=== PATIENT | female | born 1945 | race Caucasian/White ===

== ENCOUNTER 2019-08-04 11:02 | Emergency (ER) | payer OTHER, MEDICARE, SELFPAY | END 2019-08-04 13:52 | disposition home or self-care (01) | PROVIDERS: Emergency Provider Emergency Medicine; PCP Family Medicine Adolescent Medicine; Visit Provider Emergency Medicine | DX: S20.211A Contusion of right front wall of thorax, initial encounter (principal); J84.9 Interstitial pulmonary disease, unspecified; I25.2 Old myocardial infarction; I25.10 Atherosclerotic heart disease of native coronary artery without angina pectoris; Z95.5 Presence of coronary angioplasty implant and graft; E78.00 Pure hypercholesterolemia, unspecified; I10 Essential (primary) hypertension; G47.30 Sleep apnea, unspecified; M19.90 Unspecified osteoarthritis, unspecified site; Z87.891 Personal history of nicotine dependence; V47.5XXA Car driver injured in collision with fixed or stationary object in traffic accident, initial encounter | CPT/HCPCS: 99284; 85025; 83690; 36415; 87086; 80053; 81001; 87088; 71046; 71110; 71260; 74177; Q9967 ==

== ENCOUNTER 2020-11-22 14:11 | Inpatient (IN) | payer MEDICARE, SELFPAY ==
[2020-11-22] VITALS (12 sets, daily range): BP systolic 112–159; BP diastolic 52–93; PULSE 84–116; RESP 22–91; TEMP 36.7–37.7; O2SAT 90–100; BMI 24.3
--- NOTE | ~2020-11-22 | XR_ITS ---
XR chest 1V portable DATE: 11/29/2020 05:40 INDICATION: Pneumonia TECHNIQUE: Portable AP chest on the board 2020 at 0520 hours COMPARISON: 11/22/2020 portable AP chest at 1446 hours 09/13/2018 two-view chest FINDINGS: There are diffuse patchy severe bilateral pulmonary infiltrates with little interval change since 11/22/2020. Findings likely due to superimposed pneumonia or less likely pulmonary edema on chr onic interstitial lung disease. Heart size appears within normal limits. Is aortic arch calcification. No pleural effusion or pneumothorax. Diffuse osteopenia. IMPRESSION: Persistent severe bilateral pulmonary infiltrates, with little interval change since 11/22. Reviewed, dictated and finalized at location A. FORMER IMPRESSION: Persistent severe bilateral pulmonary infiltrates, with little inte rval change since 11/22/2020.
--- NOTE | ~2020-11-22 | XR_ITS ---
EXAMINATION: XR chest 1V portable INDICATION: COVID 19 pneumonia, acute respiratory failure TECHNIQUE: Portable AP chest at 0916 hours COMPARISON: 12/05/2020 FINDINGS: The endotracheal tube ends approximately 5.2 cm above the alicia. The nasogastric tube is f ollowed as far as the stomach. Its tip is beyond the inferior margin of the radiograph. A right inter nal jugular central venous catheter ends with its tip at the superior cavoatrial junction. Diffuse in terstitial and airspace opacities persist without significant change. No pleural effusion or pneumoth orax is identified. Extensive subcutaneous emphysema has developed which tracks into the chest wall a nd neck. Pneumomediastinum is also noted. The cardiomediastinal silhouette is stable. IMPRESSION: 1. Stable diffuse lung disease, consistent with pneumonia superimposed on chronic interstitial lung d isease. 2. Development of pneumomediastinum and extensive subcutaneous emphysema of the chest wall and neck, suspect barotrauma. Reviewed, dictated and finalized at location A. ENTER ASSISTANT INSTALLER IMPRESSION: 1. Stable diffuse lung disease, consistent with pneumonia superimposed on chron ic interstitial lung disease. 2. Development of pneumomediastinum and extensive subcutaneous emphysema of the chest wall and neck, suspect barotrauma.
--- NOTE | ~2020-11-22 | XR_ITS ---
XR abdomen NG/feed tube insert DATE: 12/02/2020 10:14 INDICATION: Orogastric tube insertion TECHNIQUE: Portable AP view on December 02, 2020 at 1006 hours COMPARISON: None FINDINGS: NG tube in gastric fundus, the proximal side-port 2.5 cm beyond the diaphragmatic hiatus. IMPRESSION: NG tube in proximal stomach Reviewed, dictated and finalized at Location A. Reviewed, dictated and finalized at location A. LEAF PRINTER IMPRESSION: NG tube in proximal stomach
--- NOTE | ~2020-11-22 | XR_ITS ---
XR chest ET placement DATE: 12/02/2020 10:14 INDICATION: ET tube placement TECHNIQUE: Portable upright AP chest on December 02, 2020 at 1005 hours COMPARISON: December 02, 2020 portable AP chest at 0755 hours FINDINGS: Interval ET tube placement, tip 6 cm above alicia; ideal range is 2-5 cm. A nasogastric tube is present in the stomach, distal tip beyond the margin of the radiograph. No central lines. Diffuse bilateral pulmonary infiltrates are again noted superimposed upon chronic interstitial fibros is. No pleural effusion. No pneumothorax. IMPRESSION: ET tube 6 cm above alicia; ideal range is 2-5 cm NG tube in stomach Reviewed, dictated and finalized at Location A. Reviewed, dictated and finalized at location A. DING INSPECTOR
--- NOTE | ~2020-11-22 | XR_ITS ---
EXAMINATION: XR chest 1V portable DATE: 12/07/2020 05:51 INDICATION: COVID-19 pneumonia. TECHNIQUE: A single frontal view of the chest was obtained. COMPARISON: Chest single view 12/06/2020 FINDINGS: There are airspace and interstitial opacities throughout the lungs bilaterally. No pleural effusion or pneumothorax. The heart size is normal. Pneumomediastinum is noted. The endotracheal tube tip is 6.5 cm above the alicia. The nasogastric tube tip is beyond the inferior margin of the radiog raph, but at least to the stomach. A right internal jugular central venous catheter is seen with tip in the superior vena cava. There is extensive subcutaneous emphysema in the bilateral chest wall and neck. IMPRESSION: 1. Stable diffuse lung disease, consistent with pneumonia superimposed on chronic interstitial lung d isease. 2. Persistent pneumomediastinum and extensive subcutaneous emphysema in the bilateral chest wall and neck. Reviewed, dictated and finalized at location A. UTER EQUIPMENT REPAIRER IMPRESSION: 1. Stable diffuse lung disease, consistent with pneumonia superimposed on chron ic interstitial lung disease. 2. Persistent pneumomediastinum and extensive subcutaneous emphysema in the jorge ateral chest wall and neck.
--- NOTE | ~2020-11-22 | XR_ITS ---
EXAMINATION: XR chest 1V portable DATE: 11/22/2020 14:46 INDICATION: Cough and shortness of breath. TECHNIQUE: A single frontal view of the chest was obtained. COMPARISON: Chest 2 views 08/04/2019, chest CT 08/04/2019 FINDINGS: The lung volumes are normal. There are airspace and course interstitial opacities throughou t the lungs bilaterally with a peripheral and lower lung predominance. No pleural effusion or pneumot horax. The heart size is normal. IMPRESSION: 1. Worsened diffuse lung disease, consistent with chronic interstitial lung disease with superimposed pneumonia versus pulmonary edema. Reviewed, dictated and finalized at location A. ITY SERVICE WORKER IMPRESSION: 1. Worsened diffuse lung disease, consistent with chronic interstitial lung dis ease with superimposed pneumonia versus pulmonary edema.
--- NOTE | ~2020-11-22 | XR_ITS ---
EXAMINATION: XR chest 1V portable DATE: 12/04/2020 05:56 INDICATION: COVID-19 pneumonia. Acute respiratory failure. TECHNIQUE: A single frontal view of the chest was obtained. COMPARISON: Chest single view 12/03/2010 FINDINGS: There are airspace opacities and interstitial opacities throughout the lungs bilaterally. N o pleural effusion or pneumothorax. The heart size is normal. The endotracheal tube tip is 4.3 cm abo ve the alicia. The nasogastric tube tip is in the stomach. A right internal jugular central venous ca theter is seen with tip at the superior cavoatrial junction. IMPRESSION: 1. Stable diffuse lung disease, consistent with pneumonia superimposed on chronic interstitial lung d isease. Reviewed, dictated and finalized at location A. ARD/STEWARDESS DECK IMPRESSION: 1. Stable diffuse lung disease, consistent with pneumonia superimposed on chron ic interstitial lung disease.
--- NOTE | ~2020-11-22 | XR_ITS ---
XR chest 1V portable DATE: 12/03/2020 05:35 INDICATION: Covid 19 pneumonia. Acute respiratory failure. TECHNIQUE: Portable AP chest August 02, 2021 at 0512 hours COMPARISON: December 02, 2020 portable AP chest at 1108 hours FINDINGS: ET and NG tubes in satisfactory position. Right internal jugular central venous catheter tip near superior cavoatrial junction. Heart size is within normal range. Is aortic arch calcification. There are severe diffuse bilateral pulmonary infiltrates, without significant change since November. No pleural effusion or pneumothorax is detected. IMPRESSION: No significant change since December 02, 2020 Reviewed, dictated and finalized at location A. AL WORK ASSISTANT
--- NOTE | ~2020-11-22 | XR_ITS ---
EXAMINATION: XR chest port-a-cath/central DATE: 12/02/2020 11:09 INDICATION: Central line placement. TECHNIQUE: A single frontal view of the chest was obtained. COMPARISON: Chest single view at 9:57 AM, chest CT 08/04/2019 FINDINGS: There are heterogeneous airspace and interstitial opacities throughout the lungs bilaterall y. No pleural effusion or pneumothorax. The heart size is normal. The endotracheal tube tip is 6.2 cm above the alicia. The nasogastric tube tip is in the stomach. A right internal jugular central venou s catheter is seen with tip at the superior vena cava. IMPRESSION: 1. Central line tip at the superior cavoatrial junction. No pneumothorax. 2. Diffuse lung disease, consistent with pneumonia superimposed on chronic interstitial lung disease. Reviewed, dictated and finalized at location A. ME TAX ADJUSTER IMPRESSION: 1. Central line tip at the superior cavoatrial junction. No pneumothorax. 2. Diffuse lung disease, consistent with pneumonia superimposed on chronic inte rstitial lung disease.
--- NOTE | ~2020-11-22 | XR_ITS ---
EXAMINATION: XR chest 1V portable DATE: 12/05/2020 05:43 INDICATION: COVID-19 pneumonia. Acute respiratory failure. TECHNIQUE: A single frontal view of the chest was obtained. COMPARISON: Chest single view 12/04/2020 FINDINGS: There are airspace opacities and coarse interstitial opacities throughout the lungs bilater ally. No pleural effusion or pneumothorax. The heart size is normal. The endotracheal tube tip is 6.1 cm above the alicia. The nasogastric tube tip is in the stomach. A right internal jugular central ve nous catheter is seen with tip at the superior cavoatrial junction. IMPRESSION: 1. Stable diffuse lung disease, consistent with pneumonia superimposed on chronic interstitial lung d isease. Reviewed, dictated and finalized at location A. RADIATION IMPRESSION: 1. Stable diffuse lung disease, consistent with pneumonia superimposed on chron ic interstitial lung disease.
--- NOTE | ~2020-11-22 | XR_ITS ---
XR chest 1V portable DATE: 12/02/2020 08:01 INDICATION: Covid pneumonia TECHNIQUE: Portable AP chest on December 02, 2020 at 0755 hours COMPARISON: November 29, 2020 portable AP chest at 0520 hours 09/13/2018 PA and lateral chest FINDINGS: Extensive patchy bilateral pulmonary infiltrates are again noted, likely representing pneum onia superimposed upon chronic interstitial fibrotic changes. There is no significant change since 11/29/2020 considering technical differences. No pleural effusion. Heart size appears within normal limits. Aortic arch calcification. No pneumotho rax. Diffuse osteopenia. IMPRESSION: Extensive bilateral pulmonary infiltrates, with little interval change considering techni campbell differences to. Reviewed, dictated and finalized at location A. UIT RECORDER IMPRESSION: Extensive bilateral pulmonary infiltrates, with little interval willie nge considering technical differences to.
--- NOTE | 2020-11-22 14:15 | ECG_ITS ---
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
--- NOTE | 2020-11-22 14:25 | ED.SOB ---
HPI - SOB/Dyspnea General Chief Complaint: Shortness of Breath/Dyspnea Stated Complaint: SOB Source: RN notes reviewed History of Present Illness HPI Narrative: Patient presents to emergency department from home via EMS for shortness of breath. Patient has a history of interstitial lung disease chronically on 4 L nasal cannula. States she was progressively short of breath today when EMS arrived patient was satting in the 60s on her normal 4 L and was placed on a nonrebreather. Patient states she has had some mild rhinorrhea over the past several days she denies any fevers or chills chest pain cough abdominal pain nausea vomiting or any other symptoms. Related Data Allergies Allergy/AdvReac Type Severity Reaction Status Date / Time Penicillins Allergy Mild Verified 08/04/19 11:07 venom-honey bee Allergy Unknown Verified 08/04/19 11:07 Review of Systems Review of Systems: Narrative: Gen.: Denies fevers or chills ENT: Denies congestion Respiratory: See HPI CV: Denies chest pain or palpitations GI: Denies abdominal pain nausea, emesis or diarrhea Musculoskeletal: Denies back pain or muscle pain Neuro: Denies numbness, tingling, weakness or focal weakness Skin: Denies rash Except as documented, all other systems reviewed and negative FOR[facility], [facility] Past Medical History Medical History (Updated 11/22/20 @ 16:31 by Ron Goetz DO) Interstitial lung disease Social History Social History (Updated 11/22/20 @ 14:26 by Ron Goetz DO) Smoking status: Former smoker Exam Narrative: Exam Narrative: APPEARANCE: No respiratory distress sitting upright in bed EYES: EOMI HEENT: Normocephalic, atraumatic, OMM RESPIRATORY: Moderate respiratory distress, sitting upright, decreased breath sounds at bilateral lung gilbert Decreased breath sounds throughout bilateral lung gilbert CARDIOVASCULAR: Regular rate and rhythm without murmurs rubs or gallops. ABDOMINAL: Soft, nontender, nondistended, no rebound or guarding MUSCULOSKELETAl: Moves all extremities. No clubbing, cyanosis or edema. NEURO: Awake and alert. Following commands, speech normal, no focal deficits SKIN:: Warm, dry. No rashes lesions or abrasions PSYCHIATRIC: Normal affect/mood, Course Course Emergency Course: Patient initially placed on nonrebreather and was weaned down to a ventmask Discussed with JULIAN Donovan for Dr. Prakash presentation work-up agrees with admission at this time Discussed with patient and family results of workup and diagnosis. Discussed need for admission. Patient and family understand and agree to current treatment plan Vital Signs Vital signs: Vital Signs Temperature 99.9 F H 11/22/20 14:09 Pulse Rate 116 H 11/22/20 14:09 Respiratory Rate 91 H 11/22/20 14:09 Blood Pressure 158/93 H 11/22/20 14:09 Pulse Oximetry 94 11/22/20 14:09 Temperature 99.9 F H 11/22/20 14:09 Pulse Rate 96 11/22/20 15:47 Respiratory Rate 32 H 11/22/20 15:47 Blood Pressure 125/64 11/22/20 15:47 Pulse Oximetry 100 11/22/20 15:47 MDM - SOB/Dyspnea Lab Data Result diagrams: 11/22/20 14:22 11/22/20 15:54 Labs: Lab Results 11/22/20 11/22/20 11/22/20 Range/Units 14:22 15:54 15:54 WBC 18.3 H (4.5-10.0) K/mm3 RBC 4.03 L (4.2-5.4) M/mm3 Hgb 12.2 (12.0-15.0) g/dL Hct 38.3 (37.0-47.0) % MCV 95.0 (80-100) fl MCH 30.3 (26-34) pg MCHC 31.9 L (32-36) g/dl RDW 15.0 H (11.5-14.5) % Plt Count 265 (150-375) k/mm3 MPV 11.1 H (7.4-10.4) fl Immature Gran % (Auto) 0.7 H (0-0.5) % Neut % (Auto) 81.4 H (45.5-73.1) % Lymph % (Auto) 8.9 L (18.3-44.2) % Bea[place]gard % (Auto) 6.8 (2.6-8.5) % Eos % (Auto) 1.9 (0-4.4) % Baso % (Auto) 0.3 (0.2-1.2) % Lymph # (Auto) 1.63 (0.9-3.2) K/mm3 Beauregard # (Auto) 1.2 H (0.1-0.6) K/mm3 Eos # (Auto) 0.3 (0-0.3) K/mm3 Baso # (Auto) 0.1 (0.0-0.1) K/mm3 Abs Immat Gran (auto) 0.12 H (0.00-0.031)
[2020-11-22] MEDS: methylPREDNISolone SOD SUCC 125 MG VIAL IV PUSH (14:28)
[2020-11-22] MEDS: IPRATROPIUM BR 0.02% INH SOLN 0.5 MG/2.5 ML VIAL INHALATION ×2 (14:30→20:22)
[2020-11-22] MEDS: ALBUTEROL SULFATE NEB 2.5 MG/0.5 ML INH 5 MG INHALATION ×2 (14:30→20:22)
[2020-11-22 14:32] LABS: Alveolar/Arterial O2 Gradient 479.6 mmHg; Base Excess ABG 1.2 mEq/l (+/-2.0); Fractional Inspired Oxygen 100 %; HCO3 ABG 24.9 mEq/l (22.0-26.0); Oxygen Content ABG 17.8 %vol (16.0-22.0); Oxygen Saturation ABG 99.4 % (95.0-100.0); Oxyhemoglobin 98.1 % THb (90.0-100.0); PCO2 ABG 36.2 mmHg (35.0-45.0); PO2 ABG 197.2 mmHg (80.0-100.0); PO2 FiO2 Ratio Arterial Blood 1.97 %; Total Hemoglobin 12.6 g/dL (12.0-18.0); pH ABG 7.455 (7.350-7.450)
[2020-11-22 14:33] LABS: Device NON-REBREATHER MASK; Site Drawn RIGHT BRACHIAL
--- NOTE | 2020-11-22 15:01 | PC.NURSE ---
called lab, Abdiaziz, added on BNP [id number]
[2020-11-22 15:08] LABS: Basophils Absolute Auto 0.1 K/mm3 (0.0-0.1); Basophils Percent Auto 0.3 % (0.2-1.2); Eosinophils Absolute Auto 0.3 K/mm3 (0-0.3); Eosinophils Percent Auto 1.9 % (0-4.4); Hematocrit 38.3 % (37.0-47.0); Hemoglobin 12.2 g/dL (12.0-15.0); Immature Granulocyte Absolute 0.12 K/mm3 (0.00-0.031); Immature Granulocyte Percent A 0.7 % (0-0.5); Lymphocytes Absolute Auto 1.63 K/mm3 (0.9-3.2); Lymphocytes Percent Auto 8.9 % (18.3-44.2); Mean Corpuscular HGB Conc 31.9 g/dl (32-36); Mean Corpuscular Hemoglobin 30.3 pg (26-34); Mean Platelet Volume 11.1 fl (7.4-10.4); Monocytes Absolute Auto 1.2 K/mm3 (0.1-0.6); Monocytes Percent Auto 6.8 % (2.6-8.5); Neutrophils Absolute Auto 14.9 K/mm3 (1.3-6.7); Neutrophils Percent Auto 81.4 % (45.5-73.1); Platelet Count Result 265 k/mm3 (150-375); Red Blood Count 4.03 M/mm3 (4.2-5.4); White Blood Count 18.3 K/mm3 (4.5-10.0)
[2020-11-22 16:15] LABS: INR 0.9; Prothrombin Time 12.9 Seconds (11.1-14.7)
[2020-11-22 16:16] LABS: Lactic Acid Reflex 1.8 mmol/L (0.7-2.1)
[2020-11-22 16:17] LABS: Alanine Aminotransferase 16 U/L (4-35); Albumin Level 3.5 g/dL (3.5-5.1); Alkaline Phosphatase 104 U/L (38-126); Anion Gap 3 mmol/L (8-16); Aspartate Amino Transferase 31 U/L (14-36); Bilirubin,Total 0.4 mg/dL (0.2-1.3); Blood Urea Nitrogen 19 mg/dL (7-17); Calcium 8.2 mg/dL (8.4-10.2); Carbon Dioxide 31 mmol/L (22-30); Chloride 99 mmol/L (98-107); Estimated CRCL calculation 58 ml/min; Estimated Glomerular Filt Rate > 60; Glucose 207 mg/dL (65-105); Potassium 4.3 mmol/L (3.4-5.0); Sodium 133 mmol/L (137-145)
[2020-11-22 16:25] LABS: NT Pro B Type Natriuretic Pept 2620 PG/ML (5-100)
[2020-11-23] VITALS (23 sets, daily range): BP systolic 110–152; BP diastolic 63–84; PULSE 73–125; RESP 12–42; TEMP 36.1–37.4; O2SAT 87–100; BMI 24.3
[2020-11-23] MEDS: methylPREDNISolone SOD SUCC 125 MG VIAL 60 MG IV PUSH ×4 (00:12→17:13)
[2020-11-23] MEDS: IPRATROPIUM BR 0.02% INH SOLN 0.5 MG/2.5 ML VIAL INHALATION ×3 (02:04→21:49)
[2020-11-23] MEDS: ALBUTEROL SULFATE NEB 2.5 MG/0.5 ML INH 5 MG INHALATION ×3 (02:04→21:50)
--- NOTE | 2020-11-23 02:39 | PCRCNOTE ---
PT APPEARS VERY ANXIOUS, SOB. C/O DRY THROAT. STATES I'M AFRAID TO GO TO SLEEP . SPO2 87% ON 50% VM. NEBULIZER GIVEN AND THEN PT PLACED ON HUMIDIFIED 4LPM NC + VM FOR SPO2 89%. CALLED DR EDWARDS WHO ORDERED BIPAP SETTINGS OF 12/6 R20 TITRATE FIO2 FOR SPO2 >=92%.
--- NOTE | 2020-11-23 03:25 | PC.NURSE ---
Called report over the phone at this time to the IMU. Patient has been at 15 lpm per venturi mask through the shift. She discussed feelings of anxiety and responded well to relaxation exercises. Her tachy heart rate appeared to have slowed down to 85 bpm. She later called for the bed lloyd and attempted a BM. At that time she started to desaturate and respiratory came up to address her increasing heart rate and low SpO2, calling hospitalist at [phone]. She continued to have desaturations as low as 68% SpO2 and a heart rate as high as 130. Respiratory applied a BiPAP and SpO2 climbed to 95%. She is currently on the bed lloyd, waiting for her room to be cleaned.
[2020-11-23] MEDS: OXYMETAZOLINE HCL 0.05% NAS 15 ML BTL (*BKC) 1 SPRAY NASAL (03:41)
[2020-11-23 03:50] LABS: Basophils Percent Auto 0.2 % (0.2-1.2); Hematocrit 41.1 % (37.0-47.0); Hemoglobin 13.2 g/dL (12.0-15.0); Immature Granulocyte Absolute 0.19 K/mm3 (0.00-0.031); Immature Granulocyte Percent A 0.8 % (0-0.5); Lymphocytes Absolute Auto 1.02 K/mm3 (0.9-3.2); Lymphocytes Percent Auto 4.3 % (18.3-44.2); Mean Corpuscular HGB Conc 32.1 g/dl (32-36); Mean Corpuscular Hemoglobin 30.8 pg (26-34); Mean Corpuscular Volume 95.8 fl (80-100); Mean Platelet Volume 10.2 fl (7.4-10.4); Monocytes Absolute Auto 0.7 K/mm3 (0.1-0.6); Neutrophils Absolute Auto 21.8 K/mm3 (1.3-6.7); Neutrophils Percent Auto 91.7 % (45.5-73.1); Platelet Count Result 279 k/mm3 (150-375); Red Blood Count 4.29 M/mm3 (4.2-5.4); White Blood Count 23.7 K/mm3 (4.5-10.0)
[2020-11-23 04:05] LABS: Anion Gap 7 mmol/L (8-16); Blood Urea Nitrogen 14 mg/dL (7-17); Calcium 8.6 mg/dL (8.4-10.2); Carbon Dioxide 29 mmol/L (22-30); Chloride 103 mmol/L (98-107); Estimated CRCL calculation 66 ml/min; Estimated Glomerular Filt Rate > 60; Glucose 171 mg/dL (65-105); Potassium 4.5 mmol/L (3.4-5.0); Sodium 139 mmol/L (137-145)
--- NOTE | 2020-11-23 05:03 | PM.IMHP ---
H&P: HPI History of Present Illness Date/Time: 11/23/20 03:15 Chief Complaint: Shortness of breath, weakness Narrative: Patricia Corral is a 75 year old female with a past medical history of hypothyroidism, hypertension and interstitial lung disease who presented to the ER via EMS with generalized weakness and shortness of breath. The patient reports that she has been fatigued and generally weak for 3 days. Then on the morning of the she became progressively more short of breath. Cannula. She reports that she was not having issues with hypoxia until today. When EMS arrived on scene she was satting 60% on her home O2 of 4 L. she was placed on a non-rebreather. When she arrived to the ER she was satting 94% on non-rebreather. She has had some mild rhinorrhea or over the last several days and now reports that her nose is congested after being placed on 15 L high-flow. She denied having any fevers at home but her temperature on presentation to the ER with 99.9. She denies any chest pain. She has a chronic cough that is unchanged from baseline. Her cough is nonproductive. She denies any recent ill contacts. She reports that she has centrally has not left the house in the last 13 months. Her common-law does all the shopping. He has not had any respiratory symptoms. She denies any lower extremity swelling. She denies any chest pain, orthopnea or palpitations. Patient was resting comfortably until around 2:00 a.m. where she began having sinus tachycardia of dry throat and was anxious. The patient was placed on Venti mask and 4 L nasal cannula and was initially having oxygen saturations of 89%. Her oxygen saturations did drop to the low 80s. I went to evaluate the patient and she was placed on BiPAP setting of 12/8 with adjustments made at bedside she was requiring 80% FiO2. Patient continued to have respiratory rate of 40 with accessory muscle use. The patient reports that she has done well on what sounds like Airvo in the past. She reports that her nose is extremely congested and was asking for nasal spray. An order was given for 1 time dose of Afrin. Was transferred to the IMU and transition to Airvo. 60 L at 85% respiratory rate is down to 24 in her heart rate is down to the 110s. Review of Systems Review of Systems: Narrative: 12 systems were reviewed with pertinent positives and negatives per HPI. Except as documented in the HPI, all other systems were reviewed and are negative. [facility] Past Medical History Medical History (Updated 11/23/20 @ 05:31 by Sonal Devlin DO) Coronary artery disease Essential hypertension GERD (gastroesophageal reflux disease) Hyperlipidemia Hypothyroidism Interstitial lung disease Ocular herpes zoster Right eye 2009 Surgical History Surgical History (Updated 11/23/20 @ 05:22 by Sonal Devlin DO) History of heart artery stent X3 April 2018 Family History Family History Father Cerebrovascular accident Heart attack Mother Cerebrovascular accident Heart attack Sibling Acute myocardial infarction Hypertension COPD (chronic obstructive pulmonary disease) Malignant neoplasm of prostate Sibling Hypertension Social History Social History (Updated 11/23/20 @ 05:26 by Sonal Devlin DO) Social History: She lives in [place] with her common-law of 59 years. She does not have any children. She briefly smoked when she was in college for about 7 years. She never smoked more than 1 pack of cigarettes per day. She denies any alcohol use or illicit substance use. Primary care physician: Dr. Neil Molina Code status: Full code Years smoked: 7 Smoking status: Former smoker Additional smoking assessment comments: Pt smoked in college for 6-7 years Alcohol intake: never Substance use: never Gender identity (if verbalized by the patient): Female Spiritual care concerns:
--- NOTE | 2020-11-23 05:27 | PC.NURSE ---
This patient, Patricia Corral, was received from [ [phone]] on 11/23/20 at 0500. Patient/family oriented to unit policies and routines. Pt on Airvo resting comfortably sating in the 90s
[2020-11-23] MEDS: LEVOTHYROXINE SODIUM 75 MCG TABLET PO (05:37)
[2020-11-23 06:21] LABS: Influenza Control Positive
[2020-11-23 08:29] LABS: Glucose Point of Care 146 (65-105)
[2020-11-23] MEDS: METOPROLOL SUCCINATE EXT REL 50 MG TABCR PO (10:09)
[2020-11-23] MEDS: ENOXAPARIN 40 MG/0.4 ML SYRINGE SUB-Q ×2 (10:09→20:35)
[2020-11-23] MEDS: MELOXICAM 7.5 MG TABLET 15 MG PO (10:09)
[2020-11-23] MEDS: FUROSEMIDE 20 MG TABLET PO (10:10)
[2020-11-23] MEDS: ATORVASTATIN 10 MG TABLET PO (10:10)
[2020-11-23] MEDS: PANTOPRAZOLE 40 MG TABLET PO ×2 (10:10→17:13)
--- NOTE | 2020-11-23 16:48 | PM.IMPN ---
Progress Note: A&P Assessment and Plan (1) Acute and chronic respiratory failure: Qualifiers: Respiratory failure complication: hypoxia Qualified Code(s): J96.21 - Acute and chronic respiratory failure with hypoxia Code(s): J96.20 - Acute and chronic respiratory failure, unspecified whether with hypoxia or hypercapnia Status: Acute Assessment and Plan: 11/23/20 16:48 patient is 75-year-old female with a history of chronic respiratory failure on home oxygen 4 L with history of interstitial lung disease patient presented emergency department with a complaint cough shortness of breath and hypoxic and setting in 60s on 4L, she denies any fever or chills, chest x-ray showed Worsened diffuse lung disease, consistent with chronic interstitial lung disease with superimposed pneumonia versus pulmonary edema. Concern the patient has pneumonia patient started on Levaquin with exacerbation of COPD being treated with Solu-Medrol and updraft, patient is also tested for COVID-19 is pending currently patient under isolation will continue to monitor, states feeling little better compared to when she arrived patient currently denies a cough shortness of breath fever or chills (2) Community acquired pneumonia: Qualifiers: Laterality: unspecified laterality Qualified Code(s): J18.9 - Pneumonia, unspecified organism Code(s): J18.9 - Pneumonia, unspecified organism Status: Acute Assessment and Plan: Patient is treated with Levaquin and updraft will continue to monitor repeat chest x-ray in 2 days (3) Sepsis: Qualifiers: Acute respiratory failure type: with hypoxia Sepsis acute organ dysfunction status: with acute organ dysfunction Sepsis type: sepsis due to unspecified organism Severe sepsis acute organ dysfunction type: acute respiratory failure Severe sepsis shock status: without septic shock Qualified Code(s): A41.9 - Sepsis, unspecified organism; R65.20 - Severe sepsis without septic shock; J96.01 - Acute respiratory failure with hypoxia Code(s): A41.9 - Sepsis, unspecified organism Status: Acute Assessment and Plan: Patient with criteria upon arrival most likely infection sources pneumonia pending COVID testing (4) Interstitial lung disease: Code(s): J84.9 - Interstitial pulmonary disease, unspecified Status: Acute Assessment and Plan: Chronic continue to monitor may consult pulmonology further recommendation Additional Plan The patient has acute respiratory failure. X-ray. The patient may have pneumonia versus edema. Given her leukocytosis pneumonia is more likely. Blood cultures are pending. The patient is being tested for COVID in notice on contact and droplet isolation. The patient had worsening acute respiratory failure. She was subsequently placed on BiPAP and then transition to Airvo on arrival to IMU. The patient is resting more comfortably. A Thomson catheter has been placed to the patient's respiratory distress was worsening with exertion to get to bedpan. Will send urine for pneumococcal and Legionella antigen. Will send for mycoplasma antibody. Patient fit sepsis criteria with leukocytosis, tachycardia, tachypnea and x-ray findings suggestive of pneumonia. Be in part due to acute exacerbation of her interstitial lung disease. She has subsequently been placed on steroid therapy with Solu-Medrol. 65 minutes spent in critical care activities. This case had a high probability of a clinically significant, sudden, or life threatening deterioration of this patient's condition which required my full and direct attention, intervention and personal management. Subjective Date/time seen: 11/23/20 16:48 patient is 75-year-old female with a history of chronic respiratory failure on home oxygen 4 L with history of interstitial lung disease patient presented emergency department with a complaint cough shortness of breath and hypoxic and setting
[2020-11-23 18:13] LABS: SARS-CoV-2 RNA PCR Positive
[2020-11-24] VITALS (25 sets, daily range): BP systolic 110–151; BP diastolic 63–86; PULSE 75–115; RESP 18–28; TEMP 36.2–36.9; O2SAT 87–100
[2020-11-24] MEDS: methylPREDNISolone SOD SUCC 125 MG VIAL 60 MG IV PUSH ×3 (00:36→11:56)
[2020-11-24] MEDS: IPRATROPIUM BR 0.02% INH SOLN 0.5 MG/2.5 ML VIAL INHALATION ×4 (04:04→21:10)
[2020-11-24] MEDS: ALBUTEROL SULFATE NEB 2.5 MG/0.5 ML INH 5 MG INHALATION ×2 (04:04→08:36)
[2020-11-24] MEDS: LEVOTHYROXINE SODIUM 75 MCG TABLET PO (05:14)
[2020-11-24 06:08] LABS: Alanine Aminotransferase 15 U/L (4-35); Albumin Level 3.7 g/dL (3.5-5.1); Alkaline Phosphatase 111 U/L (38-126); Anion Gap 4 mmol/L (8-16); Aspartate Amino Transferase 28 U/L (14-36); Bilirubin,Total 0.6 mg/dL (0.2-1.3); Blood Urea Nitrogen 18 mg/dL (7-17); Calcium 8.9 mg/dL (8.4-10.2); Carbon Dioxide 33 mmol/L (22-30); Chloride 100 mmol/L (98-107); Estimated CRCL calculation 58 ml/min; Estimated Glomerular Filt Rate > 60; Glucose 132 mg/dL (65-105); Potassium 4.9 mmol/L (3.4-5.0); Sodium 137 mmol/L (137-145)
[2020-11-24 07:31] LABS: CRP 16.4 mg/dL (<1.0)
[2020-11-24] MEDS: ATORVASTATIN 10 MG TABLET PO (08:59)
[2020-11-24] MEDS: METOPROLOL SUCCINATE EXT REL 50 MG TABCR PO (09:00)
[2020-11-24] MEDS: PANTOPRAZOLE 40 MG TABLET PO ×2 (09:00→18:49)
[2020-11-24] MEDS: FUROSEMIDE 20 MG TABLET PO (09:00)
[2020-11-24] MEDS: MELOXICAM 7.5 MG TABLET 15 MG PO (09:00)
[2020-11-24] MEDS: ENOXAPARIN 40 MG/0.4 ML SYRINGE SUB-Q ×2 (09:00→20:53)
[2020-11-24] MEDS: REMDESIVIR 200 MG/NS 250 ML 200 MG/250 ML BAG 250 MG IVPB (10:49)
[2020-11-24] MEDS: ASCORBIC ACID 500 MG TABLET PO (11:56)
[2020-11-24] MEDS: ZINC SULFATE 220 MG CAPSULE PO (11:56)
[2020-11-24] MEDS: CHOLECALCIFEROL 1,000 UNITS TABLET 1000 UNITS PO (11:56)
--- NOTE | 2020-11-24 13:57 | PM.CNPUL ---
Assessment and Plan Assessment and plan (1) Interstitial lung disease: Code(s): J84.9 - Interstitial pulmonary disease, unspecified Status: Acute (2) Pneumonia due to COVID-19 virus: Code(s): U07.1 - COVID-19; J12.82 - Pneumonia due to coronavirus disease 2019 Status: Acute Assessment and Plan: This patient has acute on chronic hypoxemic respiratory failure due to COVID-19 with a history of interstitial lung disease likely IPF. -Agree with Remdesivir 5-10 days - -agree with prone positioning during the day for 12-16 hours as tolerated - maintain oxygen 92-96%. 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 She has been social distant setting except for the fact that 4 days ago she went to her hair salon to get her hair done. Otherwise she has had no visitors to her home. She does live with her at home And he rarely leaves home except to go shopping. She does have a cough that is mostly nonproductive and she has been short of breath for the last 2-3 days that is being increasing. She denies loss of taste or smell or diarrhea or nausea or vomiting. She has had mild fever on and off. Chest x-ray on admission shows bilateral interstitial opacities which may be consistent with chronic IPF for pulmonary fibrosis it is hard to determine what is new on the chest x-ray if anything and there are no prior chest x-rays to compare to. She does have a history of smoking but quit many years ago. Review of Systems Review of Systems: All systems reviewed & are unremarkable except as noted in HPI and below PMFSH Past Medical History Medical History (Updated 11/24/20 @ 14:03 by Margaret Hensley MD) Coronary artery disease Essential hypertension GERD (gastroesophageal reflux disease) Hyperlipidemia Hypothyroidism Interstitial lung disease Ocular herpes zoster Right eye 2009 Surgical History Surgical History (Updated 11/23/20 @ 05:22 by Sonal Devlin DO) History of heart artery stent X3 April 2018 Family History Family History Father Cerebrovascular accident Heart attack Mother Cerebrovascular accident Heart attack Sibling Acute myocardial infarction Hypertension COPD (chronic obstructive pulmonary disease) Malignant neoplasm of prostate Sibling Hypertension Social History Social History (Updated 11/23/20 @ 05:26 by Sonal Devlin DO) Social History: She lives in [place] with her common-law of 59 years. She does not have any children. She briefly smoked when she was in college for about 7 years. She never smoked more than 1 pack of cigarettes per day. She denies any alcohol use or illicit substance use. Primary care physician: Dr. Neil Molina Code status: Full code Years smoked: 7 Smoking status: Former smoker Additional smoking assessment comments: Pt smoked in college for 6-7 years Alcohol intake: never Substance use: never Gender identity (if verbalized by the patient): Female Spiritual care concerns: No Meds Home Medications and Allergies Home Medications Medication Instructions Recorded Confirmed Type albuterol 90 mcg INHALATION QID PRN 11/22/20 11/22/20 History atorvastatin 10 mg PO DAILY 11/22/20 11/22/20 History budesonide-formoterol [Symbicort] 2 puff INHALATION Q12H 11/22/20 11/22/20 History furosemide 20 mg PO DAILY 11/22/20
[2020-11-24] MEDS: ALBUTEROL SULFATE NEB 2.5 MG/0.5 ML INH INHALATION ×2 (14:20→20:50)
--- NOTE | 2020-11-24 18:34 | PM.IMPN ---
Progress Note: A&P Assessment and Plan (1) Acute and chronic respiratory failure: Qualifiers: Respiratory failure complication: hypoxia Qualified Code(s): J96.21 - Acute and chronic respiratory failure with hypoxia Code(s): J96.20 - Acute and chronic respiratory failure, unspecified whether with hypoxia or hypercapnia Status: Acute Assessment and Plan: 11/24/20 18:34 patient is 75-year-old female with a history of chronic respiratory failure on home oxygen 4 L with history of interstitial lung disease patient presented emergency department with a complaint cough shortness of breath and hypoxic and setting in 60s on 4L, she denies any fever or chills, chest x-ray showed Worsened diffuse lung disease, consistent with chronic interstitial lung disease with superimposed pneumonia versus pulmonary edema. Concern the patient has pneumonia patient started on Levaquin with exacerbation of COPD being treated with Solu-Medrol and updraft, patient is also tested for COVID-19 is pending currently patient under isolation will continue to monitor, states feeling little better compared to when she arrived patient currently denies a cough shortness of breath fever or chills. 11/24 patient COVID test is positive started the patient on dexamethasone /10, remdesivir 1/5, vitamin D, vitamin-C and zinc, will get the patient plasma, requiring high-flow oxygen, patient states feeling better denies any cough shortness of breath fever or chill, will continue to monitor patient goal is to wean the patient off high-flow oxygen and further recommendation to follow (2) Community acquired pneumonia: Qualifiers: Laterality: unspecified laterality Qualified Code(s): J18.9 - Pneumonia, unspecified organism Code(s): J18.9 - Pneumonia, unspecified organism Status: Acute Assessment and Plan: Patient is treated with Levaquin and updraft will continue to monitor repeat chest x-ray in 2 days (3) Sepsis: Qualifiers: Acute respiratory failure type: with hypoxia Sepsis acute organ dysfunction status: with acute organ dysfunction Sepsis type: sepsis due to unspecified organism Severe sepsis acute organ dysfunction type: acute respiratory failure Severe sepsis shock status: without septic shock Qualified Code(s): A41.9 - Sepsis, unspecified organism; R65.20 - Severe sepsis without septic shock; J96.01 - Acute respiratory failure with hypoxia Code(s): A41.9 - Sepsis, unspecified organism Status: Acute Assessment and Plan: Patient with criteria upon arrival most likely infection sources pneumonia pending COVID testing (4) Interstitial lung disease: Code(s): J84.9 - Interstitial pulmonary disease, unspecified Status: Acute Assessment and Plan: Chronic continue to monitor may consult pulmonology further recommendation Subjective Date/time seen: 11/24/20 18:34 patient is 75-year-old female with a history of chronic respiratory failure on home oxygen 4 L with history of interstitial lung disease patient presented emergency department with a complaint cough shortness of breath and hypoxic and setting in 60s on 4L, she denies any fever or chills, chest x-ray showed Worsened diffuse lung disease, consistent with chronic interstitial lung disease with superimposed pneumonia versus pulmonary edema. Concern the patient has pneumonia patient started on Levaquin with exacerbation of COPD being treated with Solu-Medrol and updraft, patient is also tested for COVID-19 is pending currently patient under isolation will continue to monitor, states feeling little better compared to when she arrived patient currently denies a cough shortness of breath fever or chills. 11/24 patient COVID test is positive started the patient on dexamethasone 11/07, remdesivir 11/02, vitamin D, vitamin-C and zinc, will get the patient plasma, requiring high-flow oxygen, patient states feeling better denies any cough s
[2020-11-24] MEDS: BUDESONIDE RESPULE NEB 0.5 MG/2 ML AMP 1 MG INHALATION (20:50)
[2020-11-24 23:19] LABS: Pneumococcal Antigen Urine Not Detected (Not Detected)
[2020-11-25] VITALS (25 sets, daily range): BP systolic 102–152; BP diastolic 58–75; PULSE 70–108; RESP 12–30; TEMP 36.2–37.1; O2SAT 80–100
[2020-11-25] MEDS: IPRATROPIUM BR 0.02% INH SOLN 0.5 MG/2.5 ML VIAL INHALATION ×4 (02:19→21:27)
[2020-11-25] MEDS: ALBUTEROL SULFATE NEB 2.5 MG/0.5 ML INH INHALATION ×4 (02:19→21:27)
[2020-11-25 05:42] LABS: Alanine Aminotransferase 31 U/L (4-35); Albumin Level 3.3 g/dL (3.5-5.1); Alkaline Phosphatase 116 U/L (38-126); Anion Gap -1 mmol/L (8-16); Aspartate Amino Transferase 37 U/L (14-36); Bilirubin,Total 0.4 mg/dL (0.2-1.3); Blood Urea Nitrogen 22 mg/dL (7-17); CRP 5.1 mg/dL (<1.0); Calcium 8.7 mg/dL (8.4-10.2); Carbon Dioxide 33 mmol/L (22-30); Chloride 103 mmol/L (98-107); Estimated CRCL calculation 66 ml/min; Estimated Glomerular Filt Rate > 60; Glucose 107 mg/dL (65-105); Potassium 4.6 mmol/L (3.4-5.0); Sodium 135 mmol/L (137-145)
[2020-11-25] MEDS: BUDESONIDE RESPULE NEB 0.5 MG/2 ML AMP 1 MG INHALATION ×2 (08:01→21:27)
[2020-11-25] MEDS: ASCORBIC ACID 500 MG TABLET PO (08:06)
[2020-11-25] MEDS: ENOXAPARIN 40 MG/0.4 ML SYRINGE SUB-Q ×2 (08:06→20:53)
[2020-11-25] MEDS: PANTOPRAZOLE 40 MG TABLET PO ×2 (08:07→18:13)
[2020-11-25] MEDS: FUROSEMIDE 20 MG TABLET PO (08:07)
[2020-11-25] MEDS: METOPROLOL SUCCINATE EXT REL 50 MG TABCR PO (08:07)
[2020-11-25] MEDS: ATORVASTATIN 10 MG TABLET PO (08:07)
[2020-11-25] MEDS: CHOLECALCIFEROL 1,000 UNITS TABLET 1000 UNITS PO (08:07)
[2020-11-25] MEDS: ZINC SULFATE 220 MG CAPSULE PO (08:07)
[2020-11-25] MEDS: DEXAMETHASONE SOD PHOS INJ 4 MG/ML VIAL 6 MG IV PUSH (08:08)
--- NOTE | 2020-11-25 11:21 | PM.PNPUL ---
Progress Note: A&P Assessment and Plan (1) Acute on chronic respiratory failure with hypoxemia: Code(s): J96.21 - Acute and chronic respiratory failure with hypoxia Status: Acute Assessment and Plan: This patient has acute on chronic hypoxemic respiratory failure due to COVID-19 with a history of interstitial lung disease likely IPF. -Agree with Remdesivir 5-10 days - -agree with prone positioning during the day for 12-16 hours as tolerated - maintain oxygen 92-96%. -agree with DVT prophylaxis - will add Pulmicort 1.0 mg nebulized q.12 hours to her regimen (2) Pneumonia due to COVID-19 virus: Code(s): U07.1 - COVID-19; J12.82 - Pneumonia due to coronavirus disease 2019 Status: Acute (3) Interstitial lung disease: Code(s): J84.9 - Interstitial pulmonary disease, unspecified Status: Acute Assessment and Plan: Likely IPF. Followed by [facility] at [facility]. Was not on antifibrotic medication. Baseline 4 liters oxygen by nasal cannula at home. Subjective Date/time seen: 11/25/20 11:21 Interval history: She still feels short of breath today but overall feels a little better. This morning she is requiring high-flow oxygen at 45 L and 80% FiO2. Review of Systems Review of Systems: All systems reviewed & are unremarkable except as noted in HPI and below Exam Narrative: Exam Narrative: The patient was examined while she was in prone positioning. Const: General: cooperative, healthy appearing, comfortable, well developed, alert, awake and Physically active Nutritional Appearance: well nourished Orientation/consciousness: oriented to person, oriented to place, oriented to time and patient oriented x3 Limitations: no limitations HENMT: Head: normal to inspection, normocephalic and atraumatic Eyes: General: appearance normal, both eyes and all related structures Neck: Neck: trachea midline and supple Resp: Effort & Inspection: labored Auscultation: clear to auscultation bilaterally, abnormal I/E ratio and diminished lung sounds Cardio: Jugular venous distension: no JVD Rate: regular rate Rhythm: regular rhythm Heart sounds: S1 normal heart sound present and S2 normal heart sound present GI: Inspection: normal to inspection Auscultation: normal bowel sounds Skin: General skin exam: normal color and no rashes or lesions noted Neuro: General: oriented to person, oriented to place, oriented to time and patient oriented x3 Extrem: General: normal to inspection Psych: Appearance: grossly normal and well kempt Mental Status: mental status grossly normal Objective Data Vital Signs Vital Signs: Vital Signs - 24 hr 11/24/20 12:00 11/24/20 14:00 11/24/20 14:20 Temperature 36.6 C Pulse Rate 110 H 86 91 Respiratory Rate 20 20 Blood Pressure 151/86 H Pulse Oximetry 90 11/24/20 14:29 11/24/20 16:00 11/24/20 18:00 Temperature 36.2 C L Pulse Rate 90 88 85 Respiratory Rate 20 20 Blood Pressure 130/78 Pulse Oximetry 91 11/24/20 19:16 11/24/20 20:00 11/24/20 20:50 Temperature 36.9 C Pulse Rate 84 102 H 111 H Respiratory Rate 20 28 H Blood Pressure 121/75 Pulse Oximetry 91 97 11/24/20 21:05 11/24/20 21:24 11/24/20 22:00 Temperature Pulse Rate 111 H 94 101 H Respiratory Rate 28 H 26 H Blood Pressure Pulse Oximetry 90 11/24/20 23:09 11/25/20 00:00 11/25/20 00:54 Temperature 36.3 C L Pulse Rate 89 85 83 Respiratory Rate 27 H 22 H 16 Blood Pressure 110/72 Pulse Oximetry 98 98 98 11/25/20 02:00 11/25/20 02:19 11/25/20 02:41 Temperature Pulse Rate 70 73 108 H Respiratory Rate 30 H 30 H Blood Pressure Pulse Oximetry 98 11/25/20 03:41 11/25/20 04:00 11/25/20 06:00 Temperature 36.3 C L Pulse Rate 82 70 Respiratory Rate 20 Blood Pressure 131/72 Pulse Oximetry 100 99 11/25/20 08:00 11/25/20 10:49 11/25/20 11:03 Temperature 36.2 C L 36.5 C 37.1 C Pulse Rate 80 8
[2020-11-25] MEDS: REMDESIVIR 100 MG/NS 250 ML 100 MG/250 ML BAG 250 MG IVPB (13:03)
[2020-11-25] MEDS: SODIUM CHLORIDE 0.9% IV 250 ML 30 ML IV CONT (13:04)
[2020-11-25] MEDS: TUBING, BLOOD PLUM PUMP TUBING 1 EACH XX (13:04)
--- NOTE | 2020-11-25 16:00 | PM.IMPN ---
Progress Note: A&P Assessment and Plan (1) Acute and chronic respiratory failure: Qualifiers: Respiratory failure complication: hypoxia Qualified Code(s): J96.21 - Acute and chronic respiratory failure with hypoxia Code(s): J96.20 - Acute and chronic respiratory failure, unspecified whether with hypoxia or hypercapnia Status: Acute Assessment and Plan: 11/25/20 16:00 patient is 75-year-old female with a history of chronic respiratory failure on home oxygen 4 L with history of interstitial lung disease patient presented emergency department with a complaint cough shortness of breath and hypoxic and setting in 60s on 4L, she denies any fever or chills, chest x-ray showed Worsened diffuse lung disease, consistent with chronic interstitial lung disease with superimposed pneumonia versus pulmonary edema. Concern the patient has pneumonia patient started on Levaquin with exacerbation of COPD being treated with Solu-Medrol and updraft, patient is also tested for COVID-19 is pending currently patient under isolation will continue to monitor, states feeling little better compared to when she arrived patient currently denies a cough shortness of breath fever or chills. 11/24 patient COVID test is positive started the patient on dexamethasone 1/10, remdesivir 1/5, vitamin D, vitamin-C and zinc, will get the patient plasma, requiring high-flow oxygen, patient states feeling better denies any cough shortness of breath fever or chill, will continue to monitor patient goal is to wean the patient off high-flow oxygen and further recommendation to follow 11/25 patient COVID test is positive started the patient on dexamethasone 2/10, remdesivir 2/5, vitamin D, vitamin-C and zinc. patient will receive plasma today, today patient states feeling much better not a short breath, denies any fever or chills, discussed with the patient is still requiring high oxygen, plan is to continue monitoring the patient as her symptoms improve and requiring less than 6 L of oxygen and no fever for 2 days med with discharge planning, patient is seen by letterpress setter and further recommendation to follow. (2) Community acquired pneumonia: Qualifiers: Laterality: unspecified laterality Qualified Code(s): J18.9 - Pneumonia, unspecified organism Code(s): J18.9 - Pneumonia, unspecified organism Status: Acute Assessment and Plan: Patient is treated with Levaquin and updraft will continue to monitor repeat chest x-ray in 2 days (3) Sepsis: Qualifiers: Acute respiratory failure type: with hypoxia Sepsis acute organ dysfunction status: with acute organ dysfunction Sepsis type: sepsis due to unspecified organism Severe sepsis acute organ dysfunction type: acute respiratory failure Severe sepsis shock status: without septic shock Qualified Code(s): A41.9 - Sepsis, unspecified organism; R65.20 - Severe sepsis without septic shock; J96.01 - Acute respiratory failure with hypoxia Code(s): A41.9 - Sepsis, unspecified organism Status: Acute Assessment and Plan: Patient with criteria upon arrival most likely infection sources pneumonia pending COVID testing (4) Interstitial lung disease: Code(s): J84.9 - Interstitial pulmonary disease, unspecified Status: Acute Assessment and Plan: Chronic continue to monitor may consult pulmonology further recommendation Subjective Date/time seen: 11/25/20 16:00 patient is 75-year-old female with a history of chronic respiratory failure on home oxygen 4 L with history of interstitial lung disease patient presented emergency department with a complaint cough shortness of breath and hypoxic and setting in 60s on 4L, she denies any fever or chills, chest x-ray showed Worsened diffuse lung disease, consistent with chronic interstitial lung disease with superimposed pneumonia versus pulmonary edema. Concern the patient has pneumonia patient started on Leva
[2020-11-26] VITALS (21 sets, daily range): BP systolic 95–130; BP diastolic 55–75; PULSE 73–113; RESP 18–28; TEMP 35.8–38; O2SAT 89–99
[2020-11-26] MEDS: ALBUTEROL SULFATE NEB 2.5 MG/0.5 ML INH INHALATION ×4 (02:51→21:10)
[2020-11-26] MEDS: IPRATROPIUM BR 0.02% INH SOLN 0.5 MG/2.5 ML VIAL INHALATION ×4 (02:51→21:10)
[2020-11-26] MEDS: LEVOTHYROXINE SODIUM 75 MCG TABLET PO (05:34)
[2020-11-26 05:59] LABS: Alanine Aminotransferase 33 U/L (4-35); Albumin Level 3.1 g/dL (3.5-5.1); Alkaline Phosphatase 113 U/L (38-126); Anion Gap 0 mmol/L (8-16); Aspartate Amino Transferase 31 U/L (14-36); Bilirubin,Total 0.5 mg/dL (0.2-1.3); Blood Urea Nitrogen 25 mg/dL (7-17); CRP 6.2 mg/dL (<1.0); Calcium 8.5 mg/dL (8.4-10.2); Carbon Dioxide 34 mmol/L (22-30); Chloride 102 mmol/L (98-107); Estimated CRCL calculation 58 ml/min; Estimated Glomerular Filt Rate > 60; Glucose 90 mg/dL (65-105); Sodium 136 mmol/L (137-145)
[2020-11-26 07:53] LABS: Legionella pneumophila Ag Ur Not Detected (Not Detected)
[2020-11-26] MEDS: ATORVASTATIN 10 MG TABLET PO (08:56)
[2020-11-26] MEDS: ASCORBIC ACID 500 MG TABLET PO (08:56)
[2020-11-26] MEDS: PANTOPRAZOLE 40 MG TABLET PO ×2 (08:57→18:04)
[2020-11-26] MEDS: DEXAMETHASONE SOD PHOS INJ 4 MG/ML VIAL 6 MG IV PUSH (08:57)
[2020-11-26] MEDS: CHOLECALCIFEROL 1,000 UNITS TABLET 1000 UNITS PO (08:57)
[2020-11-26] MEDS: METOPROLOL SUCCINATE EXT REL 50 MG TABCR PO (08:57)
[2020-11-26] MEDS: ENOXAPARIN 40 MG/0.4 ML SYRINGE SUB-Q ×2 (08:57→20:22)
[2020-11-26] MEDS: FUROSEMIDE 20 MG TABLET PO (08:57)
[2020-11-26] MEDS: ZINC SULFATE 220 MG CAPSULE PO (08:57)
[2020-11-26] MEDS: BUDESONIDE RESPULE NEB 0.5 MG/2 ML AMP 1 MG INHALATION ×2 (08:58→21:10)
[2020-11-26] MEDS: REMDESIVIR 100 MG/NS 250 ML 100 MG/250 ML BAG 250 MG IVPB (10:21)
--- NOTE | 2020-11-26 11:30 | PM.PNPUL ---
Progress Note: A&P Assessment and Plan (1) Acute on chronic respiratory failure with hypoxemia: Code(s): J96.21 - Acute and chronic respiratory failure with hypoxia Status: Acute Assessment and Plan: This patient has acute on chronic hypoxemic respiratory failure due to COVID-19 with a history of interstitial lung disease likely IPF. -Agree with Remdesivir 5-10 days - -agree with prone positioning during the day for 12-16 hours as tolerated - maintain oxygen 92-96%. -agree with DVT prophylaxis - will add Pulmicort 1.0 mg nebulized q.12 hours to her regimen (2) Pneumonia due to COVID-19 virus: Code(s): U07.1 - COVID-19; J12.82 - Pneumonia due to coronavirus disease 2019 Status: Acute (3) Interstitial lung disease: Code(s): J84.9 - Interstitial pulmonary disease, unspecified Status: Acute Assessment and Plan: Likely IPF. Followed by [facility] at [facility]. Was not on antifibrotic medication. Baseline 4 liters oxygen by nasal cannula at home. Subjective Date/time seen: 11/26/20 11:30 Interval history: she feels well today but has a difficult time breathing through her nose. She says she is a mouth breather and would prefer a face mask rather than a nasal high-flow apparatus Review of Systems Review of Systems: All systems reviewed & are unremarkable except as noted in HPI and below Exam Narrative: Exam Narrative: The patient was examined while she was in prone positioning. Const: General: cooperative, healthy appearing, comfortable, well developed, alert, awake and Physically active Nutritional Appearance: well nourished Orientation/consciousness: oriented to person, oriented to place, oriented to time and patient oriented x3 Limitations: no limitations HENMT: Head: normal to inspection, normocephalic and atraumatic Eyes: General: appearance normal, both eyes and all related structures Neck: Neck: trachea midline and supple Resp: Effort & Inspection: labored Auscultation: clear to auscultation bilaterally, abnormal I/E ratio and diminished lung sounds Cardio: Jugular venous distension: no JVD Rate: regular rate Rhythm: regular rhythm Heart sounds: S1 normal heart sound present and S2 normal heart sound present GI: Inspection: normal to inspection Auscultation: normal bowel sounds Skin: General skin exam: normal color and no rashes or lesions noted Neuro: General: oriented to person, oriented to place, oriented to time and patient oriented x3 Extrem: General: normal to inspection Psych: Appearance: grossly normal and well kempt Mental Status: mental status grossly normal Objective Data Vital Signs Vital Signs: Vital Signs - 24 hr 11/25/20 12:00 11/25/20 12:03 11/25/20 13:17 Temperature 36.7 C 36.7 C 36.5 C Pulse Rate 73 73 84 Respiratory Rate 18 18 18 Blood Pressure 103/67 103/67 113/58 L Pulse Oximetry 98 98 92 11/25/20 14:00 11/25/20 15:17 11/25/20 16:00 Temperature 36.7 C Pulse Rate 83 76 85 Respiratory Rate 20 30 H Blood Pressure 102/74 Pulse Oximetry 98 97 11/25/20 18:00 11/25/20 20:00 11/25/20 21:27 Temperature 36.5 C Pulse Rate 73 92 81 Respiratory Rate 20 22 H Blood Pressure 152/75 H Pulse Oximetry 97 11/25/20 21:53 11/25/20 21:54 11/25/20 22:00 Temperature Pulse Rate 95 93 78 Respiratory Rate 20 22 H Blood Pressure Pulse Oximetry 100 11/26/20 00:00 11/26/20 02:00 11/26/20 02:52 Temperature 36.4 C L Pulse Rate 81 73 77 Respiratory Rate 18 20 Blood Pressure 115/61 Pulse Oximetry 97 11/26/20 02:55 11/26/20 03:00 11/26/20 04:00 Temperature 36.1 C L Pulse Rate 77 81 74 Respiratory Rate 20 20 20 Blood Pressure 110/60 Pulse Oximetry 97 97 11/26/20 06:00 11/26/20 08:00 11/26/20 08:57 Temperature 35.8 C L Pulse Rate 87 107 H 111 H Respiratory Rate 28 H Blood Pressure 130/75 Pulse Oximetry 97 11/26/20 08:59 11/26/20 09:06 Temperature
--- NOTE | 2020-11-26 12:00 | PCDIET ---
Nutrition Follow-Up Complete: Nutrition Diagnosis: Involuntary weight loss related to decreased appetite as evidenced by patient reporting 2-13 pound weight loss with decreased appetite. Nutrition Goal: Patient to consume 75% of meals/supplements or greater. Goal in progress. Patient has consumed average of 59% of meals since 11/24/20 on heart healthy diet. Reports appetite as fairly good, but hesitant to eat too much at a time due to fear of it causing deterioration. Encouraged small, frequent meals and consumption of Ensure Compact which she reports drinking in vanilla flavor and is being provided twice daily. Last recorded weight is 68.5 kg. Recommend obtaining new weight. Bowel Motility: Last documented BM on 11/23/20 x 1. Labs Reviewed: BUN (25), Na (136), Alb (3.1) Meds Noted: Albuterol, Symbicort, Remdesivir, Vitamin C, Decadron, Vitamin D, Lipitor, Lasix, Atrovent, Zinc Sulfate, Pulmicort, Synthroid, Toprol XL, Protonix Additional Notes: No documented skin breakdown. Will continue to monitor with same goal. Nutrition Monitoring and Evaluation: Follow up in 5 days.
--- NOTE | 2020-11-26 14:01 | PM.IMPN ---
Progress Note: A&P Assessment and Plan (1) Acute and chronic respiratory failure: Qualifiers: Respiratory failure complication: hypoxia Qualified Code(s): J96.21 - Acute and chronic respiratory failure with hypoxia Code(s): J96.20 - Acute and chronic respiratory failure, unspecified whether with hypoxia or hypercapnia Status: Acute Assessment and Plan: Patient has history of chronic respiratory failure on 4 L of oxygen secondary to NSAID she Schueler lung disease presented to the hospital with cough and shortness of breath was found to have hypoxia COVID-19 was positive patient had COVID-19 pneumonia associated with acute on top of chronic COPD exacerbation patient treated with IV steroid Also was started on remdesiver vitamin-D vitamin-C and zinc Also patient received plasma (2) Community acquired pneumonia: Qualifiers: Laterality: unspecified laterality Qualified Code(s): J18.9 - Pneumonia, unspecified organism Code(s): J18.9 - Pneumonia, unspecified organism Status: Acute Assessment and Plan: Treated with Levaquin continue to monitor plan to repeat chest x-ray in a.m. (3) Sepsis: Qualifiers: Acute respiratory failure type: with hypoxia Sepsis acute organ dysfunction status: with acute organ dysfunction Sepsis type: sepsis due to unspecified organism Severe sepsis acute organ dysfunction type: acute respiratory failure Severe sepsis shock status: without septic shock Qualified Code(s): A41.9 - Sepsis, unspecified organism; R65.20 - Severe sepsis without septic shock; J96.01 - Acute respiratory failure with hypoxia Code(s): A41.9 - Sepsis, unspecified organism Status: Acute Assessment and Plan: Secondary to COVID-19 pneumonia management as above (4) Interstitial lung disease: Code(s): J84.9 - Interstitial pulmonary disease, unspecified Status: Acute Assessment and Plan: Pulmonology recommendation appreciated Subjective Date/time seen: 11/26/20 14:01 Interval history: Patient seen and examined Patient has history of chronic respiratory failure secondary to insist tissue lung disease presented to the hospital with shortness of breath was found to have COVID-19 positive pneumonia and acute on top of chronic respiratory failure requiring high-flow oxygen Patient feels weak short of breath Patient denies fever headache chest pain I am seeing the patient for COVID-19 infection Exam Narrative: Exam Narrative: Alert Chest bilateral crackle Abdomen nontender nondistended CVS S1 + S2 Negative Lower extremity edema Objective Data Vital Signs Vital Signs: Vital Signs - 24 hr 11/25/20 15:17 11/25/20 16:00 11/25/20 18:00 Temperature 98.1 F Pulse Rate 76 85 73 Respiratory Rate 20 30 H Blood Pressure 102/74 Pulse Oximetry 98 97 11/25/20 20:00 11/25/20 21:27 11/25/20 21:53 Temperature 97.7 F Pulse Rate 92 81 95 Respiratory Rate 20 22 H 20 Blood Pressure 152/75 H Pulse Oximetry 97 11/25/20 21:54 11/25/20 22:00 11/26/20 00:00 Temperature 97.5 F L Pulse Rate 93 78 81 Respiratory Rate 22 H 18 Blood Pressure 115/61 Pulse Oximetry 100 97 11/26/20 02:00 11/26/20 02:52 11/26/20 02:55 Temperature Pulse Rate 73 77 77 Respiratory Rate 20 20 Blood Pressure Pulse Oximetry 97 11/26/20 03:00 11/26/20 04:00 11/26/20 06:00 Temperature 97.0 F L Pulse Rate 81 74 87 Respiratory Rate 20 20 Blood Pressure 110/60 Pulse Oximetry 97 11/26/20 08:00 11/26/20 08:57 11/26/20 08:59 Temperature 96.4 F L Pulse Rate 103 H 111 H 88 Respiratory Rate 28 H 20 Blood Pressure 130/75 Pulse Oximetry 97 11/26/20 09:06 11/26/20 12:00 Temperature 97.5 F L Pulse Rate 88 103 H Respiratory Rate 20 26 H Blood Pressure 101/62 Pulse Oximetry 89 L 96 Intake/Output Intake/Output: Intake & Output 11/23/20 11/24/20 11/25/20 11/26/20 23:59 23:59 23:59 23:59
[2020-11-27] VITALS (21 sets, daily range): BP systolic 99–124; BP diastolic 61–71; PULSE 70–98; RESP 20–22; TEMP 36.1–36.6; O2SAT 92–100
[2020-11-27] MEDS: IPRATROPIUM BR 0.02% INH SOLN 0.5 MG/2.5 ML VIAL INHALATION ×4 (02:50→21:24)
[2020-11-27] MEDS: ALBUTEROL SULFATE NEB 2.5 MG/0.5 ML INH INHALATION ×4 (02:50→21:24)
[2020-11-27] MEDS: LEVOTHYROXINE SODIUM 75 MCG TABLET PO (04:47)
[2020-11-27 05:31] LABS: Alanine Aminotransferase 27 U/L (4-35); Albumin Level 3.1 g/dL (3.5-5.1); Alkaline Phosphatase 111 U/L (38-126); Anion Gap 0 mmol/L (8-16); Aspartate Amino Transferase 25 U/L (14-36); Bilirubin,Total 0.5 mg/dL (0.2-1.3); Blood Urea Nitrogen 23 mg/dL (7-17); Calcium 8.7 mg/dL (8.4-10.2); Carbon Dioxide 34 mmol/L (22-30); Chloride 99 mmol/L (98-107); Estimated CRCL calculation 58 ml/min; Estimated Glomerular Filt Rate > 60; Glucose 92 mg/dL (65-105); Potassium 4.1 mmol/L (3.4-5.0); Sodium 133 mmol/L (137-145)
[2020-11-27 05:45] LABS: CRP 20.9 mg/dL (<1.0)
[2020-11-27] MEDS: BUDESONIDE RESPULE NEB 0.5 MG/2 ML AMP 1 MG INHALATION ×2 (09:45→21:24)
[2020-11-27] MEDS: CHOLECALCIFEROL 1,000 UNITS TABLET 1000 UNITS PO (10:04)
[2020-11-27] MEDS: FUROSEMIDE 20 MG TABLET PO (10:05)
[2020-11-27] MEDS: ENOXAPARIN 40 MG/0.4 ML SYRINGE SUB-Q ×2 (10:05→20:11)
[2020-11-27] MEDS: ZINC SULFATE 220 MG CAPSULE PO (10:05)
[2020-11-27] MEDS: ATORVASTATIN 10 MG TABLET PO (10:06)
[2020-11-27] MEDS: DEXAMETHASONE SOD PHOS INJ 4 MG/ML VIAL 6 MG IV PUSH (10:06)
[2020-11-27] MEDS: ASCORBIC ACID 500 MG TABLET PO (10:06)
[2020-11-27] MEDS: PANTOPRAZOLE 40 MG TABLET PO ×2 (10:07→17:51)
[2020-11-27] MEDS: METOPROLOL SUCCINATE EXT REL 50 MG TABCR PO (10:07)
[2020-11-27] MEDS: REMDESIVIR 100 MG/NS 250 ML 100 MG/250 ML BAG 250 MG IVPB (11:05)
--- NOTE | 2020-11-27 11:19 | PM.IMPN ---
Progress Note: A&P Assessment and Plan (1) Acute and chronic respiratory failure: Qualifiers: Respiratory failure complication: hypoxia Qualified Code(s): J96.21 - Acute and chronic respiratory failure with hypoxia Code(s): J96.20 - Acute and chronic respiratory failure, unspecified whether with hypoxia or hypercapnia Status: Acute Assessment and Plan: Patient has history of chronic respiratory failure at home patient was on 4 L of oxygen currently on high-flow oxygen secondary to NSAID she Schueler lung disease presented to the hospital with cough and shortness of breath was found to have hypoxia COVID-19 was positive patient had COVID-19 pneumonia associated with acute on top of chronic COPD exacerbation patient treated with IV steroid Also was started on remdesiver vitamin-D vitamin-C and zinc Also patient received plasma Anticipate discharge to rehab in 3-4 days once able to wean off oxygen (2) Community acquired pneumonia: Qualifiers: Laterality: unspecified laterality Qualified Code(s): J18.9 - Pneumonia, unspecified organism Code(s): J18.9 - Pneumonia, unspecified organism Status: Acute Assessment and Plan: Treated with Levaquin continue to monitor plan to repeat chest x-ray in a.m. Most likely related to mycoplasma pneumonia continue antibiotic until the 30 of November (3) Sepsis: Qualifiers: Acute respiratory failure type: with hypoxia Sepsis acute organ dysfunction status: with acute organ dysfunction Sepsis type: sepsis due to unspecified organism Severe sepsis acute organ dysfunction type: acute respiratory failure Severe sepsis shock status: without septic shock Qualified Code(s): A41.9 - Sepsis, unspecified organism; R65.20 - Severe sepsis without septic shock; J96.01 - Acute respiratory failure with hypoxia Code(s): A41.9 - Sepsis, unspecified organism Status: Acute Assessment and Plan: Secondary to COVID-19 pneumonia management as above (4) Interstitial lung disease: Code(s): J84.9 - Interstitial pulmonary disease, unspecified Status: Acute Assessment and Plan: Pulmonology recommendation appreciated Patient had episode of anxiety added Ativan Subjective Date/time seen: 11/27/20 11:19 Interval history: Patient seen and examined Patient has history of chronic respiratory failure secondary to insist tissue lung disease presented to the hospital with shortness of breath was found to have COVID-19 positive pneumonia and acute on top of chronic respiratory failure requiring high-flow oxygen Patient feels weak short of breath Mycoplasma titer was positive 11/27/2020 Shruthi morning patient has episode of panic attack Patient denies fever headache chest pain I am seeing the patient for COVID-19 infection Exam Narrative: Exam Narrative: Alert Chest bilateral crackle Abdomen nontender nondistended CVS S1 + S2 Negative Lower extremity edema Objective Data Vital Signs Vital Signs: Vital Signs - 24 hr 11/26/20 12:00 11/26/20 14:00 11/26/20 14:34 Temperature 97.5 F L Pulse Rate 108 H 80 95 Respiratory Rate 26 H 20 Blood Pressure 101/62 Pulse Oximetry 93 11/26/20 16:00 11/26/20 18:00 11/26/20 20:00 Temperature 100.4 F H 97.6 F Pulse Rate 98 90 86 Respiratory Rate 20 20 Blood Pressure 113/55 L 95/60 L Pulse Oximetry 93 96 11/26/20 21:10 11/26/20 21:28 11/26/20 22:00 Temperature Pulse Rate 102 H 99 91 Respiratory Rate 20 20 Blood Pressure Pulse Oximetry 96 11/27/20 00:00 11/27/20 01:31 11/27/20 02:50 Temperature 97.3 F L Pulse Rate 77 81 88 Respiratory Rate 20 20 Blood Pressure 113/65 Pulse Oximetry 97 11/27/20 02:59 11/27/20 04:00 11/27/20 05:47 Temperature 97 F L Pulse Rate 91 75 77 Respiratory Rate 20 20 Blood Pressure 115/65 Pulse Oximetry 100 11/27/20 08:00 11/27/20 09:50 11/27/20 10:07 Temperature 97.9 F Pulse
[2020-11-27 12:55] LABS: Basophils Percent Auto 0.1 % (0.2-1.2); Eosinophils Percent Auto 0.2 % (0-4.4); Hematocrit 36.8 % (37.0-47.0); Hemoglobin 12.1 g/dL (12.0-15.0); Immature Granulocyte Absolute 0.09 K/mm3 (0.00-0.031); Immature Granulocyte Percent A 0.5 % (0-0.5); Lymphocytes Absolute Auto 0.92 K/mm3 (0.9-3.2); Lymphocytes Percent Auto 4.7 % (18.3-44.2); Mean Corpuscular HGB Conc 32.9 g/dl (32-36); Mean Corpuscular Hemoglobin 30.5 pg (26-34); Mean Corpuscular Volume 92.7 fl (80-100); Mean Platelet Volume 11.1 fl (7.4-10.4); Monocytes Absolute Auto 0.8 K/mm3 (0.1-0.6); Monocytes Percent Auto 3.9 % (2.6-8.5); Neutrophils Absolute Auto 17.9 K/mm3 (1.3-6.7); Neutrophils Percent Auto 90.6 % (45.5-73.1); Platelet Count Result 199 k/mm3 (150-375); Red Blood Count 3.97 M/mm3 (4.2-5.4); Red Cell Distribution Width 14.6 % (11.5-14.5); White Blood Count 19.8 K/mm3 (4.5-10.0)
[2020-11-27] MEDS: ACETAMINOPHEN 325 MG TABLET 650 MG PO ×2 (14:50→21:46)
[2020-11-27] MEDS: ALPRAZolam (*CRX) 0.25 MG TABLET PO (15:00)
--- NOTE | 2020-11-27 18:55 | PM.PNPUL ---
Progress Note: A&P Assessment and Plan (1) Acute on chronic respiratory failure with hypoxemia: Code(s): J96.21 - Acute and chronic respiratory failure with hypoxia Status: Acute Assessment and Plan: This patient has acute on chronic hypoxemic respiratory failure due to COVID-19 with a history of interstitial lung disease likely IPF. -Agree with Remdesivir 5-10 days - -agree with prone positioning during the day for 12-16 hours as tolerated - maintain oxygen 92-96%. -agree with DVT prophylaxis - will add Pulmicort 1.0 mg nebulized q.12 hours to her regimen (2) Pneumonia due to COVID-19 virus: Code(s): U07.1 - COVID-19; J12.82 - Pneumonia due to coronavirus disease 2019 Status: Acute (3) Interstitial lung disease: Code(s): J84.9 - Interstitial pulmonary disease, unspecified Status: Acute Assessment and Plan: Likely IPF. Followed by Salt Washer at [facility]. Was not on antifibrotic medication. Baseline 4 liters oxygen by nasal cannula at home. Subjective Date/time seen: 11/27/20 18:55 Interval history: She is doing well today. No respiratory distress. High flow is at 50 liters and 77%. She is proning for a few hours/day and will do so again today. Review of Systems Review of Systems: All systems reviewed & are unremarkable except as noted in HPI and below Objective Data Vital Signs Vital Signs: Vital Signs - 24 hr 11/26/20 20:00 11/26/20 21:10 11/26/20 21:28 Temperature 36.4 C Pulse Rate 86 102 H 99 Respiratory Rate 20 20 20 Blood Pressure 95/60 L Pulse Oximetry 96 96 11/26/20 22:00 11/27/20 00:00 11/27/20 01:31 Temperature 36.3 C L Pulse Rate 91 77 81 Respiratory Rate 20 Blood Pressure 113/65 Pulse Oximetry 97 11/27/20 02:50 11/27/20 02:59 11/27/20 04:00 Temperature 36.1 C L Pulse Rate 88 91 75 Respiratory Rate 20 20 20 Blood Pressure 115/65 Pulse Oximetry 100 11/27/20 05:47 11/27/20 08:00 11/27/20 09:50 Temperature 36.6 C Pulse Rate 77 85 98 Respiratory Rate 22 H 20 Blood Pressure 124/61 Pulse Oximetry 98 96 11/27/20 10:00 11/27/20 10:07 11/27/20 12:00 Temperature 36.4 C Pulse Rate 87 89 95 Respiratory Rate 20 Blood Pressure 101/61 Pulse Oximetry 92 11/27/20 14:00 11/27/20 15:18 11/27/20 16:00 Temperature 36.3 C L Pulse Rate 86 96 80 Respiratory Rate 20 20 Blood Pressure 99/67 L Pulse Oximetry 100 11/27/20 18:00 Temperature Pulse Rate 75 Respiratory Rate Blood Pressure Pulse Oximetry Intake/Output Intake/Output: Intake & Output 11/24/20 11/25/20 11/26/20 11/27/20 23:59 23:59 23:59 23:59 Intake Total 880 1519 960 450 Output Total 1250 1400 1950 1250 Balance -370 119 990 -800 Meds/Results Medications: Active Medications Generic Name Dose Route Start Last Admin Trade Name Freq PRN Reason Stop Dose Admin Acetaminophen 650 mg 11/27/20 13:46 11/27/20 14:50 Acetaminophen 325 Mg Tablet PO 650 mg Q6H PRN Administration Mild Pain (1-3) or Fever Albuterol 2.5 mg 11/24/20 14:00 11/27/20 15:16 Albuterol Sulfate Neb 2.5 Mg/0.5 Ml Inh INHALATION 2.5 mg Q6HRT MELISSA Administration Alprazolam 0.25 mg 11/27/20 11:22 11/27/20 15:00 Alprazolam (*Crx) 0.25 Mg Tablet PO 0.25 mg TID PRN Administration Anxiety Ascorbic Acid 500 mg 11/24/20 09:30 11/27/20 10:06 Ascorbic Acid 500 Mg Tablet PO 500 mg DAILY MELISSA Administration Atorvastatin Calcium 10 mg 11/23/20 09:00 11/27/20 10:06 Atorvastatin 10 Mg Tablet PO 10 mg DAILY MELISSA Administration Budesonide 1 mg 11/24/20 20:00 11/27/20 09:45 Budesonide Respule Neb 0.5 Mg/2 Ml Amp INHALATION 1 mg Q12HRT MELISSA Administration Budesonide/Formoterol Fumarate 2 puff 11/23/20 08:00 11/27/20 09:46 Budesonide/Form 160-4.5 Mcg (*Sp) INHALATION Not Given Q12HRT MELISSA Dexamethasone Sodium Phosphate 6 mg 11/25/20 09:00 11/27/20 10:06 Dexameth
[2020-11-28] VITALS (24 sets, daily range): BP systolic 102–115; BP diastolic 53–68; PULSE 66–97; RESP 20–26; TEMP 35.8–36.4; O2SAT 90–100
[2020-11-28] MEDS: ALPRAZolam (*CRX) 0.25 MG TABLET PO ×2 (01:03→15:21)
[2020-11-28] MEDS: ALBUTEROL SULFATE NEB 2.5 MG/0.5 ML INH INHALATION ×4 (02:36→20:51)
[2020-11-28] MEDS: IPRATROPIUM BR 0.02% INH SOLN 0.5 MG/2.5 ML VIAL INHALATION ×4 (02:36→20:51)
[2020-11-28] MEDS: LEVOTHYROXINE SODIUM 75 MCG TABLET PO (05:33)
[2020-11-28 06:06] LABS: Basophils Percent Auto 0.1 % (0.2-1.2); Eosinophils Percent Auto 0.1 % (0-4.4); Hematocrit 36.2 % (37.0-47.0); Hemoglobin 11.7 g/dL (12.0-15.0); Immature Granulocyte Absolute 0.04 K/mm3 (0.00-0.031); Immature Granulocyte Percent A 0.3 % (0-0.5); Lymphocytes Absolute Auto 1.59 K/mm3 (0.9-3.2); Lymphocytes Percent Auto 11.7 % (18.3-44.2); Mean Corpuscular HGB Conc 32.3 g/dl (32-36); Mean Corpuscular Hemoglobin 30.2 pg (26-34); Mean Corpuscular Volume 93.5 fl (80-100); Mean Platelet Volume 11.3 fl (7.4-10.4); Monocytes Absolute Auto 0.7 K/mm3 (0.1-0.6); Monocytes Percent Auto 5.4 % (2.6-8.5); Neutrophils Absolute Auto 11.3 K/mm3 (1.3-6.7); Neutrophils Percent Auto 82.4 % (45.5-73.1); Platelet Count Result 204 k/mm3 (150-375); Red Blood Count 3.87 M/mm3 (4.2-5.4); Red Cell Distribution Width 14.5 % (11.5-14.5); White Blood Count 13.6 K/mm3 (4.5-10.0)
[2020-11-28 06:50] LABS: Alanine Aminotransferase 23 U/L (4-35); Alkaline Phosphatase 98 U/L (38-126); Anion Gap -4 mmol/L (8-16); Aspartate Amino Transferase 20 U/L (14-36); Bilirubin,Total 0.4 mg/dL (0.2-1.3); Blood Urea Nitrogen 19 mg/dL (7-17); CRP 17.2 mg/dL (<1.0); Calcium 8.4 mg/dL (8.4-10.2); Carbon Dioxide 39 mmol/L (22-30); Chloride 97 mmol/L (98-107); Estimated CRCL calculation 58 ml/min; Estimated Glomerular Filt Rate > 60; Glucose 104 mg/dL (65-105); Potassium 4.1 mmol/L (3.4-5.0); Sodium 132 mmol/L (137-145)
[2020-11-28] MEDS: PANTOPRAZOLE 40 MG TABLET PO ×2 (08:00→17:33)
[2020-11-28] MEDS: ATORVASTATIN 10 MG TABLET PO (08:00)
[2020-11-28] MEDS: ASCORBIC ACID 500 MG TABLET PO (08:00)
[2020-11-28] MEDS: CHOLECALCIFEROL 1,000 UNITS TABLET 1000 UNITS PO (08:00)
[2020-11-28] MEDS: ZINC SULFATE 220 MG CAPSULE PO (08:00)
[2020-11-28] MEDS: METOPROLOL SUCCINATE EXT REL 50 MG TABCR PO (08:00)
[2020-11-28] MEDS: FUROSEMIDE 20 MG TABLET PO (08:00)
[2020-11-28] MEDS: ENOXAPARIN 40 MG/0.4 ML SYRINGE SUB-Q ×2 (08:01→21:37)
[2020-11-28] MEDS: DEXAMETHASONE SOD PHOS INJ 4 MG/ML VIAL 6 MG IV PUSH (08:01)
[2020-11-28] MEDS: REMDESIVIR 100 MG/NS 250 ML 100 MG/250 ML BAG 250 MG IVPB (09:20)
[2020-11-28] MEDS: ACETAMINOPHEN 325 MG TABLET 650 MG PO (09:20)
[2020-11-28] MEDS: BUDESONIDE RESPULE NEB 0.5 MG/2 ML AMP 1 MG INHALATION ×2 (09:30→20:51)
--- NOTE | 2020-11-28 15:12 | PM.IMPN ---
Progress Note: A&P Assessment and Plan (1) Acute and chronic respiratory failure: Qualifiers: Respiratory failure complication: hypoxia Qualified Code(s): J96.21 - Acute and chronic respiratory failure with hypoxia Code(s): J96.20 - Acute and chronic respiratory failure, unspecified whether with hypoxia or hypercapnia Status: Acute Assessment and Plan: 11/28/20 15:12 patient is 75-year-old female with a history of chronic respiratory failure on home oxygen 4 L with history of interstitial lung disease patient presented emergency department with a complaint cough shortness of breath and hypoxic and setting in 60s on 4L, she denies any fever or chills, chest x-ray showed Worsened diffuse lung disease, consistent with chronic interstitial lung disease with superimposed pneumonia versus pulmonary edema. Concern the patient has pneumonia patient started on Levaquin with exacerbation of COPD being treated with Solu-Medrol and updraft, patient is also tested for COVID-19 is pending currently patient under isolation will continue to monitor, states feeling little better compared to when she arrived patient currently denies a cough shortness of breath fever or chills. 11/24 patient COVID test is positive started the patient on dexamethasone 1/10, remdesivir 1/5, vitamin D, vitamin-C and zinc, will get the patient plasma, requiring high-flow oxygen, patient states feeling better denies any cough shortness of breath fever or chill, will continue to monitor patient goal is to wean the patient off high-flow oxygen and further recommendation to follow 11/25 patient COVID test is positive started the patient on dexamethasone 2/10, remdesivir 2/5, vitamin D, vitamin-C and zinc. patient will receive plasma today, today patient states feeling much better not a short breath, denies any fever or chills, discussed with the patient is still requiring high oxygen, plan is to continue monitoring the patient as her symptoms improve and requiring less than 6 L of oxygen and no fever for 2 days med with discharge planning, patient is seen by safety and security manager and further recommendation to follow. 11/28 Patient tested positive for COVID on 11/22 and was started on dexamethasone 5/10, remdesivir 4/10 and plasma, also added vitamin D, vitamin-C, zinc, patient will complete her 5 day course of remdesivir on 11/29 will continue for another 5 days, remained clinically stable has no fever and and on high-flow oxygen, patient seen by pulmonology and further recommendation to follow. Patient is encouraged to do the prone ventilation as instructed this will help improve oxygenation. (2) Community acquired pneumonia: Qualifiers: Laterality: unspecified laterality Qualified Code(s): J18.9 - Pneumonia, unspecified organism Code(s): J18.9 - Pneumonia, unspecified organism Status: Acute Assessment and Plan: Patient is treated with Levaquin and updraft will continue to monitor repeat chest x-ray in 2 days (3) Sepsis: Qualifiers: Acute respiratory failure type: with hypoxia Sepsis acute organ dysfunction status: with acute organ dysfunction Sepsis type: sepsis due to unspecified organism Severe sepsis acute organ dysfunction type: acute respiratory failure Severe sepsis shock status: without septic shock Qualified Code(s): A41.9 - Sepsis, unspecified organism; R65.20 - Severe sepsis without septic shock; J96.01 - Acute respiratory failure with hypoxia Code(s): A41.9 - Sepsis, unspecified organism Status: Acute Assessment and Plan: Patient with criteria upon arrival most likely infection sources pneumonia pending COVID testing (4) Interstitial lung disease: Code(s): J84.9 - Interstitial pulmonary disease, unspecified Status: Acute Assessment and Plan: Chronic continue to monitor may consult pulmonology further recommendation Subjective Date/time seen: 11/28/20 15:12 patient is 75-
--- NOTE | 2020-11-28 21:19 | PM.PNPUL ---
Progress Note: A&P Assessment and Plan (1) Acute on chronic respiratory failure with hypoxemia: Code(s): J96.21 - Acute and chronic respiratory failure with hypoxia Status: Acute Assessment and Plan: This patient has acute on chronic hypoxemic respiratory failure due to COVID-19 with a history of interstitial lung disease likely IPF. -Agree with Remdesivir 10 days - -agree with prone positioning during the day for 12-16 hours as tolerated - maintain oxygen 92-96%. -agree with DVT prophylaxis - will add Pulmicort 1.0 mg nebulized q.12 hours to her regimen (2) Pneumonia due to COVID-19 virus: Code(s): U07.1 - COVID-19; J12.82 - Pneumonia due to coronavirus disease 2019 Status: Acute (3) Interstitial lung disease: Code(s): J84.9 - Interstitial pulmonary disease, unspecified Status: Acute Assessment and Plan: Likely IPF. Followed by Pediatric Clinical Nurse Specialist at [facility]. Was not on antifibrotic medication. Baseline 4 liters oxygen by nasal cannula at home. Subjective Date/time seen: 11/28/20 21:19 Interval history: Appears to be resting comfortably on high flow oxygen but still at high dose 50 liters and 90%. Review of Systems Review of Systems: All systems reviewed & are unremarkable except as noted in HPI and below Exam Const: General: cooperative, healthy appearing, comfortable, well developed, alert, awake and Physically active Nutritional Appearance: well nourished Orientation/consciousness: oriented to person, oriented to place, oriented to time and patient oriented x3 Limitations: no limitations HENMT: Head: normal to inspection, normocephalic and atraumatic Eyes: General: appearance normal, both eyes and all related structures Neck: Neck: trachea midline and supple Resp: Effort & Inspection: labored Auscultation: clear to auscultation bilaterally, abnormal I/E ratio and diminished lung sounds Cardio: Jugular venous distension: no JVD Rate: regular rate Rhythm: regular rhythm Heart sounds: S1 normal heart sound present and S2 normal heart sound present GI: Inspection: normal to inspection Auscultation: normal bowel sounds Skin: General skin exam: normal color and no rashes or lesions noted Neuro: General: oriented to person, oriented to place, oriented to time and patient oriented x3 Extrem: General: normal to inspection Psych: Appearance: grossly normal and well kempt Mental Status: mental status grossly normal Objective Data Vital Signs Vital Signs: Vital Signs - 24 hr 11/27/20 21:25 11/27/20 21:48 11/27/20 22:00 Temperature Pulse Rate 78 84 70 Respiratory Rate 20 20 Blood Pressure Pulse Oximetry 98 11/27/20 23:43 11/27/20 23:50 11/28/20 00:00 Temperature 36.4 C Pulse Rate 75 75 71 Respiratory Rate 20 20 Blood Pressure 111/70 Pulse Oximetry 99 99 11/28/20 02:00 11/28/20 02:36 11/28/20 02:40 Temperature Pulse Rate 73 74 Respiratory Rate 20 Blood Pressure Pulse Oximetry 98 11/28/20 02:46 11/28/20 03:58 11/28/20 04:00 Temperature 36.4 C Pulse Rate 77 71 71 Respiratory Rate 20 20 20 Blood Pressure 115/63 Pulse Oximetry 100 100 11/28/20 06:00 11/28/20 08:00 11/28/20 09:30 Temperature 35.8 C L Pulse Rate 69 71 78 Respiratory Rate 26 H 20 Blood Pressure 102/53 L Pulse Oximetry 96 92 11/28/20 09:50 11/28/20 10:00 11/28/20 11:46 Temperature 36.3 C L Pulse Rate 85 72 78 Respiratory Rate 20 22 H Blood Pressure 111/68 Pulse Oximetry 90 11/28/20 12:00 11/28/20 14:00 11/28/20 14:25 Temperature Pulse Rate 80 97 92 Respiratory Rate 20 Blood Pressure Pulse Oximetry 95 11/28/20 14:41 11/28/20 16:00 11/28/20 18:00 Temperature 36.1 C L Pulse Rate 96 87 82 Respiratory Rate 20 25 H Blood Pressure 115/68 Pulse Oximetry 99 11/28/20 20:00 11/28/20 20:52 11/28/20 21:10 Temperature 36.2 C L Pulse Rate 80 92 96 Respiratory Rate 20 20 20
[2020-11-29] VITALS (27 sets, daily range): BP systolic 106–118; BP diastolic 52–69; PULSE 69–100; RESP 18–24; TEMP 36.4–36.7; O2SAT 89–100
[2020-11-29] MEDS: ALBUTEROL SULFATE NEB 2.5 MG/0.5 ML INH INHALATION ×3 (02:22→20:28)
[2020-11-29] MEDS: IPRATROPIUM BR 0.02% INH SOLN 0.5 MG/2.5 ML VIAL INHALATION ×3 (02:22→20:28)
[2020-11-29] MEDS: ALPRAZolam (*CRX) 0.25 MG TABLET PO ×2 (02:27→21:17)
[2020-11-29] MEDS: LEVOTHYROXINE SODIUM 75 MCG TABLET PO (05:52)
[2020-11-29 06:03] LABS: Basophils Percent Auto 0.1 % (0.2-1.2); Eosinophils Percent Auto 0.1 % (0-4.4); Hematocrit 40.9 % (37.0-47.0); Hemoglobin 13.2 g/dL (12.0-15.0); Immature Granulocyte Absolute 0.09 K/mm3 (0.00-0.031); Immature Granulocyte Percent A 0.5 % (0-0.5); Lymphocytes Absolute Auto 2.25 K/mm3 (0.9-3.2); Lymphocytes Percent Auto 13.7 % (18.3-44.2); Mean Corpuscular HGB Conc 32.3 g/dl (32-36); Mean Platelet Volume 10.9 fl (7.4-10.4); Monocytes Absolute Auto 1.2 K/mm3 (0.1-0.6); Monocytes Percent Auto 7.3 % (2.6-8.5); Neutrophils Absolute Auto 12.8 K/mm3 (1.3-6.7); Neutrophils Percent Auto 78.3 % (45.5-73.1); Platelet Count Result 244 k/mm3 (150-375); Red Cell Distribution Width 14.3 % (11.5-14.5); White Blood Count 16.4 K/mm3 (4.5-10.0)
[2020-11-29 06:19] LABS: Alanine Aminotransferase 22 U/L (4-35); Albumin Level 3.1 g/dL (3.5-5.1); Alkaline Phosphatase 103 U/L (38-126); Anion Gap -2 mmol/L (8-16); Aspartate Amino Transferase 24 U/L (14-36); Bilirubin,Total 0.5 mg/dL (0.2-1.3); Blood Urea Nitrogen 20 mg/dL (7-17); CRP 6.8 mg/dL (<1.0); Calcium 8.8 mg/dL (8.4-10.2); Carbon Dioxide 39 mmol/L (22-30); Chloride 97 mmol/L (98-107); Estimated CRCL calculation 51 ml/min; Estimated Glomerular Filt Rate > 60; Glucose 94 mg/dL (65-105); Potassium 4.3 mmol/L (3.4-5.0); Sodium 134 mmol/L (137-145)
[2020-11-29] MEDS: BUDESONIDE RESPULE NEB 0.5 MG/2 ML AMP 1 MG INHALATION ×2 (08:59→20:28)
[2020-11-29] MEDS: ASCORBIC ACID 500 MG TABLET PO (09:48)
[2020-11-29] MEDS: METOPROLOL SUCCINATE EXT REL 50 MG TABCR PO (09:48)
[2020-11-29] MEDS: DEXAMETHASONE SOD PHOS INJ 4 MG/ML VIAL 6 MG IV PUSH (09:48)
[2020-11-29] MEDS: CHOLECALCIFEROL 1,000 UNITS TABLET 1000 UNITS PO (09:49)
[2020-11-29] MEDS: PANTOPRAZOLE 40 MG TABLET PO ×2 (09:49→17:46)
[2020-11-29] MEDS: FUROSEMIDE 20 MG TABLET PO (09:49)
[2020-11-29] MEDS: ATORVASTATIN 10 MG TABLET PO (09:49)
[2020-11-29] MEDS: ZINC SULFATE 220 MG CAPSULE PO (09:49)
[2020-11-29] MEDS: ENOXAPARIN 40 MG/0.4 ML SYRINGE SUB-Q ×2 (09:49→21:17)
--- NOTE | 2020-11-29 11:16 | PM.PNPUL ---
Progress Note: A&P Assessment and Plan (1) Acute on chronic respiratory failure with hypoxemia: Code(s): J96.21 - Acute and chronic respiratory failure with hypoxia Status: Acute Assessment and Plan: Continue high flow oxygen to maintain saturations 90-94% 2/ decreased from 50L 90% to 83%. Follow. (2) Pneumonia due to COVID-19 virus: Code(s): U07.1 - COVID-19; J12.82 - Pneumonia due to coronavirus disease 2018 Status: Acute Assessment and Plan: This patient has acute on chronic hypoxemic respiratory failure due to COVID-19 with a history of interstitial lung disease likely IPF. -Agree with Remdesivir 10 days -agree with prone positioning during the day for 12-16 hours as tolerated - maintain oxygen 90-94%. -agree with DVT prophylaxis -will add Pulmicort 1.0 mg nebulized q.12 hours to her regimen (3) Interstitial lung disease: Code(s): J84.9 - Interstitial pulmonary disease, unspecified Status: Acute Assessment and Plan: Likely IPF. Followed by Spray Applicator at [facility]. Was not on antifibrotic medication. Baseline 4 liters oxygen by nasal cannula at home. Subjective Date/time seen: 11/29/20 11:16 Interval history: Patient awith H/O IPF for 3-4 years on 4 L NC oxygen presented 11/23 with COVID pneumonia and hypoxic respiratory failure. 11/28 Appears to be resting comfortably on high flow oxygen but still at high dose 50 liters and 90%. 11/29 Slowly improving since admission. Still desats with activity. On high flow 50L and 83% FIO2 with sats 97%. Review of Systems Review of Systems: All systems reviewed & are unremarkable except as noted in HPI and below Eyes: Eyes: Reports no additional eye complaints ENT: Reports system reviewed and no additional complaints, except as documented and Reports sinus pressure Cardiovascular: Cardiovascular: Reports no additional cardiovascular complaints and Denies chest pain Respiratory: Respiratory: Reports chest congestion, Reports cough, Denies hemoptysis, Reports dyspnea, Reports dyspnea on exertion and Denies wheezing Gastrointestinal: Gastrointestinal: Reports no additional gastrointestinal complaints Musculoskeletal: Musculoskeletal: Reports no additional musculoskeletal complaints Integumentary/Breasts: Skin/Breast: Reports system reviewed and no additional complaints, except as docu Neurologic: Reports system reviewed and no additional complaints, except as documented and Reports behavioral changes Psychiatric: Psychiatric: Reports no additional psychiatric complaints and Reports behavioral changes Endocrine: Endocrine: Reports no additional endocrine complaints Exam Const: General: cooperative, healthy appearing, no acute distress, alert and awake Orientation/consciousness: oriented to person, oriented to place and oriented to time HENMT: Head: normal to inspection Ears: hearing grossly normal bilaterally Mouth: Yes Normal oral and palatal mucosa present Throat: tonsils absent Eyes: General: appearance normal, both eyes and all related structures Neck: Neck: normal visual inspection Chest: Chest palpation & inspection: normal inspection of the chest Resp: Effort & Inspection: normal respiratory effort Auscultation: crackles (right > left), no rales, no rhonchi, no wheezes and lung sounds not diminished Cardio: Jugular venous distension: no JVD GI: Inspection: normal to inspection Skin: General skin exam: normal color Neuro: General: oriented to person, oriented to place and oriented to time Extrem: General: normal to inspection Psych: Appearance: grossly normal Objective Data Vital Signs Vital Signs: Vital Signs - 24 hr 11/28/20 11:46 11/28/20 12:00 11/28/20 14:00 Temperature 36.3 C L Pulse Rate 78 80 97 Respiratory Rate 22 H Blood Pressure 111/68 Pulse Oximetry 90 95 11/28/20 14:25 11/28/20 14:41 11/28/20 16:00 Temperature 36.1 C L Pulse Rate 92 96 87 Resp
[2020-11-29] MEDS: REMDESIVIR 100 MG/NS 250 ML 100 MG/250 ML BAG 250 MG IVPB (12:42)
--- NOTE | 2020-11-29 17:36 | PM.IMPN ---
Progress Note: A&P Assessment and Plan (1) Acute and chronic respiratory failure: Qualifiers: Respiratory failure complication: hypoxia Qualified Code(s): J96.21 - Acute and chronic respiratory failure with hypoxia Code(s): J96.20 - Acute and chronic respiratory failure, unspecified whether with hypoxia or hypercapnia Status: Acute Assessment and Plan: 11/29/20 17:36 patient is 75-year-old female with a history of chronic respiratory failure on home oxygen 4 L with history of interstitial lung disease patient presented emergency department with a complaint cough shortness of breath and hypoxic and setting in 60s on 4L, she denies any fever or chills, chest x-ray showed Worsened diffuse lung disease, consistent with chronic interstitial lung disease with superimposed pneumonia versus pulmonary edema. Concern the patient has pneumonia patient started on Levaquin with exacerbation of COPD being treated with Solu-Medrol and updraft, patient is also tested for COVID-19 is pending currently patient under isolation will continue to monitor, states feeling little better compared to when she arrived patient currently denies a cough shortness of breath fever or chills. 11/24 patient COVID test is positive started the patient on dexamethasone 1/10, remdesivir 1/5, vitamin D, vitamin-C and zinc, will get the patient plasma, requiring high-flow oxygen, patient states feeling better denies any cough shortness of breath fever or chill, will continue to monitor patient goal is to wean the patient off high-flow oxygen and further recommendation to follow 11/25 patient COVID test is positive started the patient on dexamethasone 2/10, remdesivir 2/5, vitamin D, vitamin-C and zinc. patient will receive plasma today, today patient states feeling much better not a short breath, denies any fever or chills, discussed with the patient is still requiring high oxygen, plan is to continue monitoring the patient as her symptoms improve and requiring less than 6 L of oxygen and no fever for 2 days med with discharge planning, patient is seen by counter roller and further recommendation to follow. 11/28 Patient tested positive for COVID on 11/22 and was started on dexamethasone 5/10, remdesivir 4/10 and plasma, also added vitamin D, vitamin-C, zinc, patient will complete her 5 day course of remdesivir on 11/29 will continue for another 5 days, remained clinically stable has no fever and and on high-flow oxygen, patient seen by pulmonology and further recommendation to follow. Patient is encouraged to do the prone ventilation as instructed this will help improve oxygenation. 11/29 Patient tested positive for COVID on 11/22 and was started on dexamethasone 03/07, remdesivir 5/10 and plasma, also added vitamin D, vitamin-C, zinc, today patient will complete 5 day course of remdesivir, will extend another 5 days today total of 10 days, is on high-flow oxygen, remains clinically stable on current regimen, encouraged prone ventilation, patient is seen by pulmonology agrees with plan, will continue to monitor as patient's symptoms improve further recommendation to follow. (2) Community acquired pneumonia: Qualifiers: Laterality: unspecified laterality Qualified Code(s): J18.9 - Pneumonia, unspecified organism Code(s): J18.9 - Pneumonia, unspecified organism Status: Acute Assessment and Plan: Patient is treated with Levaquin and updraft will continue to monitor repeat chest x-ray in 2 days (3) Sepsis: Qualifiers: Acute respiratory failure type: with hypoxia Sepsis acute organ dysfunction status: with acute organ dysfunction Sepsis type: sepsis due to unspecified organism Severe sepsis acute organ dysfunction type: acute respiratory failure Severe sepsis shock status: without septic shock Qualified Code(s): A41.9 - Sepsis, unspecified organism; R65.20 - Severe sepsis without septic shock; J96.01 - Acute respiratory failure with
[2020-11-30] VITALS (26 sets, daily range): BP systolic 109–133; BP diastolic 64–71; PULSE 75–117; RESP 20–39; TEMP 36.3–36.9; O2SAT 91–99
[2020-11-30] MEDS: IPRATROPIUM BR 0.02% INH SOLN 0.5 MG/2.5 ML VIAL INHALATION ×4 (02:33→19:30)
[2020-11-30] MEDS: ALBUTEROL SULFATE NEB 2.5 MG/0.5 ML INH INHALATION ×4 (02:33→19:30)
[2020-11-30] MEDS: LEVOTHYROXINE SODIUM 75 MCG TABLET PO (05:37)
[2020-11-30 06:07] LABS: Alanine Aminotransferase 19 U/L (4-35); Albumin Level 3.2 g/dL (3.5-5.1); Alkaline Phosphatase 102 U/L (38-126); Anion Gap 3 mmol/L (8-16); Aspartate Amino Transferase 22 U/L (14-36); Bilirubin,Total 0.6 mg/dL (0.2-1.3); Blood Urea Nitrogen 24 mg/dL (7-17); CRP 5.3 mg/dL (<1.0); Carbon Dioxide 38 mmol/L (22-30); Chloride 94 mmol/L (98-107); Estimated CRCL calculation 51 ml/min; Estimated Glomerular Filt Rate > 60; Glucose 96 mg/dL (65-105); Potassium 4.1 mmol/L (3.4-5.0); Sodium 135 mmol/L (137-145)
[2020-11-30] MEDS: BUDESONIDE RESPULE NEB 0.5 MG/2 ML AMP 1 MG INHALATION ×2 (08:01→19:30)
[2020-11-30] MEDS: ZINC SULFATE 220 MG CAPSULE PO (08:59)
[2020-11-30] MEDS: ASCORBIC ACID 500 MG TABLET PO (08:59)
[2020-11-30] MEDS: METOPROLOL SUCCINATE EXT REL 50 MG TABCR PO (09:00)
[2020-11-30] MEDS: ATORVASTATIN 10 MG TABLET PO (09:00)
[2020-11-30] MEDS: FUROSEMIDE 20 MG TABLET PO (09:00)
[2020-11-30] MEDS: DEXAMETHASONE SOD PHOS INJ 4 MG/ML VIAL 6 MG IV PUSH (09:01)
[2020-11-30] MEDS: CHOLECALCIFEROL 1,000 UNITS TABLET 1000 UNITS PO (09:01)
[2020-11-30] MEDS: ENOXAPARIN 40 MG/0.4 ML SYRINGE SUB-Q ×2 (09:02→21:18)
[2020-11-30] MEDS: PANTOPRAZOLE 40 MG TABLET PO ×2 (09:02→17:38)
[2020-11-30] MEDS: REMDESIVIR 100 MG/NS 250 ML 100 MG/250 ML BAG 250 MG IVPB (10:07)
--- NOTE | 2020-11-30 12:12 | PM.PNPUL ---
Progress Note: A&P Assessment and Plan (1) Acute on chronic respiratory failure with hypoxemia: Code(s): J96.21 - Acute and chronic respiratory failure with hypoxia Status: Acute Assessment and Plan: Continue supplemental oxygen to maintain saturations 90-94% 2/1 decreased from 50L 90% to 83%. 2/2 require CPAP 7 100% lalst night and now 50L 90% and NRB with sats 95%. Follow. (2) Pneumonia due to COVID-19 virus: Code(s): U07.1 - COVID-19; J12.82 - Pneumonia due to coronavirus disease 2018 Status: Acute Assessment and Plan: This patient has acute on chronic hypoxemic respiratory failure due to COVID-19 with a history of interstitial lung disease likely IPF. - S/P convalescent plasma 11/25 - Agree with Remdesivir 10 days (started 11/24) - Agree with deamethasone 6 mg IV Q day (started 11/25) - agree with prone positioning during the day for 12-16 hours as tolerated - maintain oxygen 90-94%. -agree with DVT prophylaxis -will add Pulmicort 1.0 mg nebulized q.12 hours to her regimen (3) Interstitial lung disease: Code(s): J84.9 - Interstitial pulmonary disease, unspecified Status: Acute Assessment and Plan: Likely IPF. Followed by Manager Ethics at [facility]. Was not on antifibrotic medication. Baseline 4 liters oxygen by nasal cannula at home. Subjective Date/time seen: 11/30/20 12:12 Interval history: Patient awith H/O IPF for 3-4 years on 4 L NC oxygen presented 11/23 with COVID pneumonia and hypoxic respiratory failure. Remdesivir started 11/24, dexamethsone started 11/25, s/p convalescent plasma 11/25. 11/28 Appears to be resting comfortably on high flow oxygen but still at high dose 50 liters and 90%. 2/ Slowly improving since admission. Still desats with activity. On high flow 50L and 83% FIO2 later in day with sats 97%. 2/2 Required CPAP 7 last night and toelrated well. She is talkative and states she feels a little better. Currenlty on Airvo 50L, 90% and 100% NRB with sats 95%. Unable to do prone as panick attacks, does rotate side to side. Review of Systems Review of Systems: All systems reviewed & are unremarkable except as noted in HPI and below Eyes: Eyes: Reports no additional eye complaints ENT: Reports system reviewed and no additional complaints, except as documented and Reports sinus pressure Cardiovascular: Cardiovascular: Reports no additional cardiovascular complaints, Denies chest pain, Reports dyspnea and Reports dyspnea on exertion Respiratory: Respiratory: Reports chest congestion, Reports cough, Denies hemoptysis, Reports dyspnea, Reports dyspnea on exertion and Denies wheezing Gastrointestinal: Gastrointestinal: Reports no additional gastrointestinal complaints Musculoskeletal: Musculoskeletal: Reports no additional musculoskeletal complaints Integumentary/Breasts: Skin/Breast: Reports system reviewed and no additional complaints, except as docu Neurologic: Reports system reviewed and no additional complaints, except as documented and Reports behavioral changes Psychiatric: Psychiatric: Reports no additional psychiatric complaints and Reports behavioral changes Endocrine: Endocrine: Reports no additional endocrine complaints Allergic/Immunologic: Allergic/Immunologic: Denies wheezing Exam Narrative: Exam Narrative: The patient was examined while she was in prone positioning. Const: General: cooperative, healthy appearing, no acute distress, alert and awake Orientation/consciousness: oriented to person, oriented to place and oriented to time HENMT: Head: normal to inspection Ears: hearing grossly normal bilaterally Mouth: Yes Normal oral and palatal mucosa present Throat: tonsils absent Eyes: General: appearance normal, both eyes and all related structures Neck: Neck: normal visual inspection Chest: Chest palpation & inspection: normal inspection of the chest Resp: Effort & Inspection: normal respiratory effort Auscultation
[2020-11-30] MEDS: ALPRAZolam (*CRX) 0.25 MG TABLET PO ×2 (13:36→21:19)
--- NOTE | 2020-11-30 16:55 | PM.IMPN ---
Progress Note: A&P Assessment and Plan (1) Acute and chronic respiratory failure: Qualifiers: Respiratory failure complication: hypoxia Qualified Code(s): J96.21 - Acute and chronic respiratory failure with hypoxia Code(s): J96.20 - Acute and chronic respiratory failure, unspecified whether with hypoxia or hypercapnia Status: Acute Assessment and Plan: 11/30/20 16:55 patient is 75-year-old female with a history of chronic respiratory failure on home oxygen 4 L with history of interstitial lung disease patient presented emergency department with a complaint cough shortness of breath and hypoxic and setting in 60s on 4L, she denies any fever or chills, chest x-ray showed Worsened diffuse lung disease, consistent with chronic interstitial lung disease with superimposed pneumonia versus pulmonary edema. Concern the patient has pneumonia patient started on Levaquin with exacerbation of COPD being treated with Solu-Medrol and updraft, patient is also tested for COVID-19 is pending currently patient under isolation will continue to monitor, states feeling little better compared to when she arrived patient currently denies a cough shortness of breath fever or chills. 11/24 patient COVID test is positive started the patient on dexamethasone 1/10, remdesivir 1/5, vitamin D, vitamin-C and zinc, will get the patient plasma, requiring high-flow oxygen, patient states feeling better denies any cough shortness of breath fever or chill, will continue to monitor patient goal is to wean the patient off high-flow oxygen and further recommendation to follow 11/25 patient COVID test is positive started the patient on dexamethasone 2/10, remdesivir 2/5, vitamin D, vitamin-C and zinc. patient will receive plasma today, today patient states feeling much better not a short breath, denies any fever or chills, discussed with the patient is still requiring high oxygen, plan is to continue monitoring the patient as her symptoms improve and requiring less than 6 L of oxygen and no fever for 2 days med with discharge planning, patient is seen by news clipping cutter and further recommendation to follow. 11/28 Patient tested positive for COVID on 11/22 and was started on dexamethasone 5/10, remdesivir 4/10 and plasma, also added vitamin D, vitamin-C, zinc, patient will complete her 5 day course of remdesivir on 11/29 will continue for another 5 days, remained clinically stable has no fever and and on high-flow oxygen, patient seen by pulmonology and further recommendation to follow. Patient is encouraged to do the prone ventilation as instructed this will help improve oxygenation. 11/29 Patient tested positive for COVID on 11/22 and was started on dexamethasone 10, remdesivir 510 and plasma, also added vitamin D, vitamin-C, zinc, today patient will complete 5 day course of remdesivir, will extend another 5 days today total of 10 days, is on high-flow oxygen, remains clinically stable on current regimen, encouraged prone ventilation, patient is seen by pulmonology agrees with plan, will continue to monitor as patient's symptoms improve further recommendation to follow. 11/30 Patient tested positive for COVID on 11/22 and was started on dexamethasone 04/07, remdesivir 04/07 and was given plasma, also added vitamin D, vitamin-C, zinc,on 11/29 patient completed 5 day course of remdesivir, and extend another 5 days for total of 610 days, patient is on high-flow oxygen, remains clinically stable on current regimen, encouraged prone ventilation, patient is seen by pulmonology agrees with plan, will continue to monitor as patient's symptoms improve further recommendation to follow. (2) Community acquired pneumonia: Qualifiers: Laterality: unspecified laterality Qualified Code(s): J18.9 - Pneumonia, unspecified organism Code(s): J18.9 - Pneumonia, unspecified organism Status: Acute Assessment and Plan: Patient is treated with Levaquin and updraft will
[2020-12-01] VITALS (28 sets, daily range): BP systolic 111–126; BP diastolic 54–76; PULSE 70–98; RESP 18–30; TEMP 35.7–36.7; O2SAT 91–100
[2020-12-01] MEDS: IPRATROPIUM BR 0.02% INH SOLN 0.5 MG/2.5 ML VIAL INHALATION ×4 (02:27→20:44)
[2020-12-01] MEDS: ALBUTEROL SULFATE NEB 2.5 MG/0.5 ML INH INHALATION ×4 (02:27→20:44)
[2020-12-01] MEDS: LEVOTHYROXINE SODIUM 75 MCG TABLET PO (05:39)
[2020-12-01 07:26] LABS: Alanine Aminotransferase 17 U/L (4-35); Alkaline Phosphatase 92 U/L (38-126); Anion Gap 1 mmol/L (8-16); Aspartate Amino Transferase 23 U/L (14-36); Bilirubin,Total 0.6 mg/dL (0.2-1.3); Blood Urea Nitrogen 18 mg/dL (7-17); CRP 8.5 mg/dL (<1.0); Calcium 8.5 mg/dL (8.4-10.2); Carbon Dioxide 38 mmol/L (22-30); Chloride 96 mmol/L (98-107); Estimated CRCL calculation 66 ml/min; Estimated Glomerular Filt Rate > 60; Glucose 86 mg/dL (65-105); Potassium 3.9 mmol/L (3.4-5.0); Sodium 135 mmol/L (137-145)
[2020-12-01] MEDS: BUDESONIDE RESPULE NEB 0.5 MG/2 ML AMP 1 MG INHALATION (08:22)
[2020-12-01] MEDS: ATORVASTATIN 10 MG TABLET PO (08:47)
[2020-12-01] MEDS: ASCORBIC ACID 500 MG TABLET PO (08:47)
[2020-12-01] MEDS: DEXAMETHASONE SOD PHOS INJ 4 MG/ML VIAL 6 MG IV PUSH (08:47)
[2020-12-01] MEDS: FUROSEMIDE 20 MG TABLET PO (08:48)
[2020-12-01] MEDS: CHOLECALCIFEROL 1,000 UNITS TABLET 1000 UNITS PO (08:48)
[2020-12-01] MEDS: PANTOPRAZOLE 40 MG TABLET PO ×2 (08:48→16:20)
[2020-12-01] MEDS: ZINC SULFATE 220 MG CAPSULE PO (08:48)
[2020-12-01] MEDS: ENOXAPARIN 40 MG/0.4 ML SYRINGE SUB-Q ×2 (08:48→21:30)
[2020-12-01] MEDS: METOPROLOL SUCCINATE EXT REL 50 MG TABCR PO (08:48)
[2020-12-01] MEDS: REMDESIVIR 100 MG/NS 250 ML 100 MG/250 ML BAG 250 MG IVPB (10:20)
--- NOTE | 2020-12-01 11:26 | PM.PNPUL ---
Progress Note: A&P Assessment and Plan (1) Acute on chronic respiratory failure with hypoxemia: Code(s): J96.21 - Acute and chronic respiratory failure with hypoxia Status: Acute Assessment and Plan: Continue supplemental oxygen to maintain saturations 90-94% 2/1 decreased from 50L 90% to 83%. 2/2 require CPAP 7 100% last night and now 50L 90% and NRB with sats 95%. 2/3 CPAP 7 80% last night, now on 45L and 85% with sats 93-97%. Follow. (2) Pneumonia due to COVID-19 virus: Code(s): U07.1 - COVID-19; J12.82 - Pneumonia due to coronavirus disease 2019 Status: Acute Assessment and Plan: This patient has acute on chronic hypoxemic respiratory failure due to COVID-19 with a history of interstitial lung disease likely IPF. - S/P convalescent plasma 11/25 - Agree with Remdesivir 10 days (started 11/24,finish 12/03) - Agree with deamethasone 6 mg IV Q day (started 11/25, finish 12/04) - agree with prone positioning during the day for 12-16 hours as tolerated - Symbicort 2 puffs BID and albuterol neb Q 6 and will DC Pulmicort. - maintain oxygen 90-94%. - agree with DVT prophylaxis - levaquin started 11/23 and will DC. (3) Interstitial lung disease: Code(s): J84.9 - Interstitial pulmonary disease, unspecified Status: Acute Assessment and Plan: Likely IPF. Followed by Retail Account Manager at [facility]. Was not on antifibrotic medication. Baseline 4 liters oxygen by nasal cannula at home. Subjective Date/time seen: 12/01/20 11:26 Interval history: Patient awith H/O IPF for 3-4 years on 4 L NC oxygen presented 11/23 with COVID pneumonia and hypoxic respiratory failure. Remdesivir started 11/24, dexamethasone started 11/25, s/p convalescent plasma 11/25. 11/28 Appears to be resting comfortably on high flow oxygen but still at high dose 50 liters and 90%. 2/1 Slowly improving since admission. Still desats with activity. On high flow 50L and 83% FIO2 later in day with sats 97%. 2/2 Required CPAP 7 last night and toelrated well. She is talkative and states she feels a little better. Currenlty on Airvo 50L, 90% and 100% NRB with sats 95%. Unable to do prone as panick attacks, does rotate side to side. 2/3 Required CPAP 7 and 80% overnight and did well. Currenlty on high flow 45L and 85% with sats 93-97%, remains alert and talkative. Day 8 remdesivir, and day 7 dexamethasone. Review of Systems Review of Systems: All systems reviewed & are unremarkable except as noted in HPI and below Eyes: Eyes: Reports no additional eye complaints ENT: Reports system reviewed and no additional complaints, except as documented and Reports sinus pressure Cardiovascular: Cardiovascular: Reports no additional cardiovascular complaints, Denies chest pain, Reports dyspnea and Reports dyspnea on exertion Respiratory: Respiratory: Reports chest congestion, Reports cough, Denies hemoptysis, Reports dyspnea, Reports dyspnea on exertion and Denies wheezing Gastrointestinal: Gastrointestinal: Reports no additional gastrointestinal complaints Musculoskeletal: Musculoskeletal: Reports no additional musculoskeletal complaints Integumentary/Breasts: Skin/Breast: Reports system reviewed and no additional complaints, except as docu Neurologic: Reports system reviewed and no additional complaints, except as documented and Reports behavioral changes Psychiatric: Psychiatric: Reports no additional psychiatric complaints and Reports behavioral changes Endocrine: Endocrine: Reports no additional endocrine complaints Allergic/Immunologic: Allergic/Immunologic: Denies wheezing Exam Narrative: Exam Narrative: The patient was examined while she was in prone positioning. Const: General: cooperative, healthy appearing, no acute distress, alert and awake Orientation/consciousness: oriented to person, oriented to place and oriented to time HENMT: Head: normal to inspection Ears: hearing grossly normal bilaterally Mouth: Yes No
--- NOTE | 2020-12-01 11:40 | PCDIET ---
Nutrition Follow-Up Complete: Nutrition Diagnosis: Involuntary weight loss related to decreased appetite as evidenced by patient reporting 2-13 pound weight loss with decreased appetite. Nutrition Goal: Patient to consume 75% of meals/supplements or greater. Goal in progress. Attempted to phone patient x 2 due to COVID-19 precautions with no answer. Average intake from 11/27/20 has been 14% of meals. Overall intake slightly improved, but still in 25-50% range. Remains on heart healthy diet with Ensure Clear (240kcal, 8g protein) BID. Recommend adding Frozen Nutritional Treat (300kcal, 9g protein) BID to supplement intakes. Last recorded weight is 68.5 kg. Recommend obtaining new weight. Bowel Motility: Last documented BM on 11/27/20. Labs Reviewed: BUN (18), Cr (0.6), Na (135), Alb (3.0) Meds Noted: Albuterol, Vitamin C, Lipitor, Symbicort, Decadron, Lasix, Atrovent, Synthroid, Toprol XL, Vitamin D, Protonix, Remdesivir, Zinc Sulfate Additional Notes: No documented skin breakdown. Nutrition Monitoring and Evaluation: Follow up in 3 days.
--- NOTE | 2020-12-01 15:33 | PM.IMPN ---
Progress Note: A&P Assessment and Plan (1) Acute and chronic respiratory failure: Qualifiers: Respiratory failure complication: hypoxia Qualified Code(s): J96.21 - Acute and chronic respiratory failure with hypoxia Code(s): J96.20 - Acute and chronic respiratory failure, unspecified whether with hypoxia or hypercapnia Status: Acute Assessment and Plan: 12/01/20 15:33 patient is 75-year-old female with a history of chronic respiratory failure on home oxygen 4 L with history of interstitial lung disease patient presented emergency department with a complaint cough shortness of breath and hypoxic and setting in 60s on 4L, she denies any fever or chills, chest x-ray showed Worsened diffuse lung disease, consistent with chronic interstitial lung disease with superimposed pneumonia versus pulmonary edema. Concern the patient has pneumonia patient started on Levaquin with exacerbation of COPD being treated with Solu-Medrol and updraft, patient is also tested for COVID-19 is pending currently patient under isolation will continue to monitor, states feeling little better compared to when she arrived patient currently denies a cough shortness of breath fever or chills. 11/24 patient COVID test is positive started the patient on dexamethasone 1/10, remdesivir 1/5, vitamin D, vitamin-C and zinc, will get the patient plasma, requiring high-flow oxygen, patient states feeling better denies any cough shortness of breath fever or chill, will continue to monitor patient goal is to wean the patient off high-flow oxygen and further recommendation to follow 11/25 patient COVID test is positive started the patient on dexamethasone 2/10, remdesivir 2/5, vitamin D, vitamin-C and zinc. patient will receive plasma today, today patient states feeling much better not a short breath, denies any fever or chills, discussed with the patient is still requiring high oxygen, plan is to continue monitoring the patient as her symptoms improve and requiring less than 6 L of oxygen and no fever for 2 days med with discharge planning, patient is seen by automatic glove turner and former and further recommendation to follow. 11/28 Patient tested positive for COVID on 11/22 and was started on dexamethasone 5/10, remdesivir 4/10 and plasma, also added vitamin D, vitamin-C, zinc, patient will complete her 5 day course of remdesivir on 11/29 will continue for another 5 days, remained clinically stable has no fever and and on high-flow oxygen, patient seen by pulmonology and further recommendation to follow. Patient is encouraged to do the prone ventilation as instructed this will help improve oxygenation. 11/29 Patient tested positive for COVID on 11/22 and was started on dexamethasone 5/10, remdesivir 5/10 and plasma, also added vitamin D, vitamin-C, zinc, today patient will complete 5 day course of remdesivir, will extend another 5 days today total of 10 days, is on high-flow oxygen, remains clinically stable on current regimen, encouraged prone ventilation, patient is seen by pulmonology agrees with plan, will continue to monitor as patient's symptoms improve further recommendation to follow. 11/30 Patient tested positive for COVID on 11/22 and was started on dexamethasone 610, remdesivir 610 and was given plasma, also added vitamin D, vitamin-C, zinc,on 11/29 patient completed 5 day course of remdesivir, and extend another 5 days for total of 610 days, patient is on high-flow oxygen, remains clinically stable on current regimen, encouraged prone ventilation, patient is seen by pulmonology agrees with plan, will continue to monitor as patient's symptoms improve further recommendation to follow. 12/01 Patient tested positive for COVID on 11/22 and was started on dexamethasone 10, remdesivir 10 and was given plasma, also added vitamin D, vitamin-C, zinc,on 11/29 patient completed 5 day course of remdesivir, on 11/29 and extend another 5 days for total of 610 days, patient is on high-flow oxygen, remains clin
[2020-12-01] MEDS: ALPRAZolam (*CRX) 0.25 MG TABLET PO (21:30)
[2020-12-02] VITALS (39 sets, daily range): BP systolic 82–163; BP diastolic 53–94; PULSE 77–131; RESP 15–47; TEMP 35.9–37.2; O2SAT 87–99; BMI 24.3
[2020-12-02] MEDS: ALBUTEROL SULFATE NEB 2.5 MG/0.5 ML INH INHALATION ×4 (02:15→19:39)
[2020-12-02] MEDS: IPRATROPIUM BR 0.02% INH SOLN 0.5 MG/2.5 ML VIAL INHALATION ×4 (02:15→19:39)
[2020-12-02 03:43] LABS: Alveolar/Arterial O2 Gradient 592.9 mmHg; Base Excess ABG 5.3 mEq/l (+/-2.0); Carboxyhemoglobin 0.3 % THb (0-2.0); Device NON-INVASIVE VENT; Fractional Inspired Oxygen 100 %; HCO3 ABG 31.3 mEq/l (22.0-26.0); Methemoglobin ABG 0.3 %THb (0-1.5); Oxygen Content ABG 17.5 %vol (16.0-22.0); Oxygen Saturation ABG 93.3 % (95.0-100.0); Oxyhemoglobin 91.6 % THb (90.0-100.0); PO2 ABG 68.1 mmHg (80.0-100.0); PO2 FiO2 Ratio Arterial Blood 0.68 %; Reduced Hemoglobin 7.8 %THb (0-5.0); Site Drawn RIGHT BRACHIAL; Total Hemoglobin 13.6 g/dL (12.0-18.0); pH ABG 7.398 (7.350-7.450)
[2020-12-02 03:44] LABS: Non-Invasive Expiratory Pressure 7 CMH2O; Non-Invasive Inspiratory Pressure 14 CMH2O; Non-Invasive Vent Rate 10 /MIN
[2020-12-02 05:14] LABS: Hematocrit 37.3 % (37.0-47.0); Hemoglobin 12.3 g/dL (12.0-15.0); Mean Corpuscular Hemoglobin 29.9 pg (26-34); Mean Corpuscular Volume 90.5 fl (80-100); Mean Platelet Volume 11.8 fl (7.4-10.4); Platelet Count Result 245 k/mm3 (150-375); Red Blood Count 4.12 M/mm3 (4.2-5.4); Red Cell Distribution Width 14.1 % (11.5-14.5); White Blood Count 29.1 K/mm3 (4.5-10.0)
[2020-12-02 05:55] LABS: Alanine Aminotransferase 16 U/L (4-35); Albumin Level 3.1 g/dL (3.5-5.1); Alkaline Phosphatase 113 U/L (38-126); Anion Gap 3 mmol/L (8-16); Aspartate Amino Transferase 26 U/L (14-36); Bilirubin,Total 0.6 mg/dL (0.2-1.3); Blood Urea Nitrogen 19 mg/dL (7-17); CRP 14.5 mg/dL (<1.0); Calcium 8.5 mg/dL (8.4-10.2); Carbon Dioxide 35 mmol/L (22-30); Chloride 95 mmol/L (98-107); Estimated CRCL calculation 78 ml/min; Estimated Glomerular Filt Rate > 60; Glucose 116 mg/dL (65-105); Potassium 3.6 mmol/L (3.4-5.0); Sodium 133 mmol/L (137-145)
--- NOTE | 2020-12-02 08:01 | PC.NURSE ---
Significant other Leo updated on events overnight.
--- NOTE | 2020-12-02 08:40 | PC.NURSE ---
Patient's respirations 50 and oxygen saturation 88% on 100% FIO2. Dr. Prakash called and made aware of patient's vital signs and that patient very anxious. Stated he would speak with Dr. Clarke and Dr. Davila. IV Ativan x1 ordered.
[2020-12-02] MEDS: ENOXAPARIN 40 MG/0.4 ML SYRINGE SUB-Q ×2 (09:01→20:37)
[2020-12-02] MEDS: DEXAMETHASONE SOD PHOS INJ 4 MG/ML VIAL 6 MG IV PUSH (09:01)
[2020-12-02] MEDS: LORazepam INJ (*CRX) 2 MG/ML VIAL 0.5 MG IV PUSH (09:01)
[2020-12-02 09:12] LABS: Alveolar/Arterial O2 Gradient 617.8 mmHg; Base Excess ABG 3.1 mEq/l (+/-2.0); Fractional Inspired Oxygen 100 %; Oxygen Content ABG 17.1 %vol (16.0-22.0); Oxygen Saturation ABG 90.9 % (95.0-100.0); Oxyhemoglobin 89.3 % THb (90.0-100.0); PCO2 ABG 38.9 mmHg (35.0-45.0); PO2 ABG 56.3 mmHg (80.0-100.0); PO2 FiO2 Ratio Arterial Blood 0.56 %; Total Hemoglobin 13.6 g/dL (12.0-18.0)
[2020-12-02 09:15] LABS: Site Drawn LEFT RADIAL
[2020-12-02 09:16] LABS: Device BIPAP; Expiratory Pressure 7 cmH2O; Inspiratory Pressure 14 cmH2O; Modified Allen's Test Pass
--- NOTE | 2020-12-02 09:40 | PC.NURSE ---
This patient, Patricia Corral, was transferred to ICU 6 on 12/02/20 at 0940. Personal belongings sent with patient. Report given to GIULIANA Abreu. Appropriate documentation sent with patient.
--- NOTE | 2020-12-02 09:54 | PM.PNPUL ---
Progress Note: A&P Assessment and Plan (1) Acute on chronic respiratory failure with hypoxemia: Code(s): J96.21 - Acute and chronic respiratory failure with hypoxia Status: Acute Assessment and Plan: Continue supplemental oxygen to maintain saturations 90-94% 2/1 decreased from 50L 90% to 83%. 2/2 require CPAP 7 100% last night and now 50L 90% and NRB with sats 95%. 2/3 CPAP 7 80% last night, now on 45L and 85% with sats 93-97%. 2/4 failed CPAP 100% and BiPAP 14/7 and 100%, failed higher back up rate, higher pressures and different rise times. Transfered to ICU for hypoxia and RR 45. I spoke with defensive fire control systems operator. Call to be made by hospitalist to [facility] for ECMO evaluation. I spoke with spoke with patient and in room on speaker phone and intubation is acceptable to both. They also agree to transfer if they are accepted at higher level of care facility. (2) Pneumonia due to COVID-19 virus: Code(s): U07.1 - COVID-19; J12.82 - Pneumonia due to coronavirus disease 2019 Status: Acute Assessment and Plan: This patient has acute on chronic hypoxemic respiratory failure due to COVID-19 with a history of interstitial lung disease likely IPF. - S/P convalescent plasma 11/25 - Agree with Remdesivir 10 days (started 11/24,finish 12/03) - Agree with deamethasone 6 mg IV Q day (started 11/25, finish 12/04) - agree with prone positioning during the day for 12-16 hours as tolerated - Symbicort 2 puffs BID and albuterol neb Q 6 and will DC Pulmicort. - maintain oxygen 90-94%. - agree with DVT prophylaxis - levaquin started 11/23 and will DC. Patient with leukocytosis to 29.1K and will emperically start vanco and imipenem. (3) Interstitial lung disease: Code(s): J84.9 - Interstitial pulmonary disease, unspecified Status: Acute Assessment and Plan: Likely IPF. Followed by City Maintenance Manager at [facility]. Was not on antifibrotic medication. Baseline 4 liters oxygen by nasal cannula at home. Subjective Date/time seen: 12/02/20 09:54 Interval history: Patient awith H/O IPF for 3-4 years on 4 L NC oxygen presented 11/23 with COVID pneumonia and hypoxic respiratory failure. Remdesivir started 11/24, dexamethasone started 11/25, s/p convalescent plasma 11/25. 11/28 Appears to be resting comfortably on high flow oxygen but still at high dose 50 liters and 90%. 2/1 Slowly improving since admission. Still desats with activity. On high flow 50L and 83% FIO2 later in day with sats 97%. 2/2 Required CPAP 7 last night and toelrated well. She is talkative and states she feels a little better. Currenlty on Airvo 50L, 90% and 100% NRB with sats 95%. Unable to do prone as panick attacks, does rotate side to side. 2/3 Required CPAP 7 and 80% overnight and did well. Currenlty on high flow 45L and 85% with sats 93-97%, remains alert and talkative. Day 8 remdesivir, and day 7 dexamethasone. 2/ patient deteriorated overnight failed CPAP 7 and now on BiPAP 14/7 100% with RR 45 and sats 89%. She states It is hard for her to breath. spoke with p atient and in room on speaker phone and intubation is acceptable to both. Will transfer to ICU. I spoke with defensive fire control systems operator. Hospitalist is going to refer to [facility] for ECMO evaluation. Review of Systems Review of Systems: ROS unobtainable: Yes unobtainable due to medical condition Eyes: Eyes: Reports no additional eye complaints ENT: Reports system reviewed and no additional complaints, except as documented and Reports sinus pressure Cardiovascular: Cardiovascular: Reports no additional cardiovascular complaints, Denies chest pain, Reports dyspnea and Reports dyspnea on exertion Respiratory: Respiratory: Reports chest congestion, Reports cough, Denies hemoptysis, Reports dyspnea, Reports dyspnea on exertion and Denies wheezing Gastrointestinal: Gastrointestinal: Reports no additional gastrointestinal complaints Musculoskeletal: Musculoskeletal: Reports no additional
[2020-12-02] MEDS: FENTANYL 2,500MCG/NS250ML(*CRX 2,500 MCG/250 ML BAG 7.5 MCG IV CONT (10:04)
--- NOTE | 2020-12-02 10:58 | PC.NURSE ---
This patient, Patricia Corral, was received from room 210 on 12/02/20 at 0945. Patient/family oriented to unit policies and routines
[2020-12-02] MEDS: SODIUM CHLORIDE 0.9% IV 500 ML IV CONT ×2 (11:12→14:30)
[2020-12-02] MEDS: REMDESIVIR 100 MG/NS 250 ML 100 MG/250 ML BAG 250 MG IVPB (11:17)
--- NOTE | 2020-12-02 11:53 | WPDPROCEDUR ---
Procedures Intubation Intubation Date: 12/02/20 Intubation Time: 09:51 A pre-procedural Time-Out was completed immediately before starting the procedure and confirmed: Patient Identification, Site, Procedure, Patient Position and the Availability of Requisite Equipment: Yes Sedative: etomidate Paralytic: succinylcholine Laryngoscope: fiber optic video scope Assist device used: fiber optic device ET tube size: 7.5 Tube secured depth (cm): 23 Tube secured location: lips Tube placement confirmation: visualized tube passing through cords, equal breath sounds bilaterally, no breath sounds over epigastrium and confirmation by capnometry Patient tolerated procedure: well and no complications Intubation complications: none
--- NOTE | 2020-12-02 11:54 | P.PCNBED_ITS ---
Procedures Central Line Placement Right IJ: Central Line Date: 12/02/20 Central Line Time: 10:42 Discussed w/ the patient/family/POA,the placement of a central venous catheter, including its clinical necessity/indication & associated potential risks, benifits and alternatives.: Yes The patient/family/POA understand(s) and acknowledge(s) the need to proceed with central venous catheter insertion as an important element of the patient's clinical management.: Yes Time Out Performed: Yes Patient Position: supine Patient placed on monitor/pulse ox: Yes Provider Prep: mask, sterile gown, sterile gloves, Max. sterile barrier precautions and hand hygiene with conventional soap/water or alcohol based hand rub Central line prep: 2% Chlorhexidine scrub and sterile full body sheet applied Local anesthesia used: lidocaine 1% Amount of anesthesia used (ml): 3 Sterile US Technique with sterile gel/sterile probe covers: Yes Central line lumen inserted: triple Swedish: 12 Length (cm): 16 Depth of Insertion (cm): 16 Post Procedure: sutured in place, good blood return, all ports aspirated, flushed, capped, transparent dressing, hemostatic product, antimicrobial product, securement product and aseptic technique maintained throughout pro cedure Post procedure x-ray: tip of catheter in good position and no pneumothorax seen Patient tolerated procedure: well Complications: none
--- NOTE | 2020-12-02 11:56 | WPDCNINT ---
Assessment and Plan Assessment and plan (1) Acute on chronic respiratory failure with hypoxemia: Code(s): J96.21 - Acute and chronic respiratory failure with hypoxia Status: Acute Assessment and Plan: Acute on chronic hypoxic respiratory failure likely related to IPF flare versus COVID-19 pneumonia -patient was on BiPAP tonight on 100% FiO2, with impending respiratory failure. Patient was intubated on 12/02/2020. Intubation was uneventful -patient had elevated peak pressures on CMV mode of ventilation, switched her to pressure control ventilation, -low tidal volume strategy, peep of 10 and currently on 100% FiO2. -post intubation ABGs with better oxygenation, -chest x-ray reviewed -on fentanyl and Versed for sedation (2) Sepsis: Qualifiers: Acute respiratory failure type: with hypoxia Sepsis acute organ dysfunction status: with acute organ dysfunction Sepsis type: sepsis due to unspecified organism Severe sepsis acute organ dysfunction type: acute respiratory failure Severe sepsis shock status: without septic shock Qualified Code(s): A41.9 - Sepsis, unspecified organism; R65.20 - Severe sepsis without septic shock; J96.01 - Acute respiratory failure with hypoxia Code(s): A41.9 - Sepsis, unspecified organism Status: Acute Assessment and Plan: Increasing leukocytosis which could be related to steroids, infection/pneumonia -patient has been started on meropenem and vancomycin per pulmonology -patient is afebrile -chest x-ray with no significant change -continue bronchodilators (3) Pneumonia due to COVID-19 virus: Code(s): U07.1 - COVID-19; J12.82 - Pneumonia due to coronavirus disease 2019 Status: Acute Assessment and Plan: SARS-CoV-2 PCR positive on 11/22/2020 -continue dexamethasone for total of 10 days (initiated on 11/25/2020) -patient getting total of 10 days of Remdesivir (initiated on 11/24/2020) -continue droplet, atrial, contact isolation/precautions - -will obtain inflammatory markers (4) DVT prophylaxis: Code(s): Z29.9 - Encounter for prophylactic measures, unspecified Status: Acute Assessment and Plan: Lovenox 40 mg subcu q.12 (5) Dietary counseling and surveillance: Code(s): Z71.3 - Dietary counseling and surveillance Status: Acute Assessment and Plan: Stress ulcer prophylaxis: Protonix IV -will start tube feeds in a.m. Additional Plan Discussed with patient prior to intubation and updated with her condition and plan of care. I had answered all questions Code status: Full code Critical care time spent: 49 minutes Due to a high probability of clinically significant, life threatening deterioration, the patient required my highest level of preparedness to intervene emergently and I personally spent this critical care time directly and personally managing the patient. This critical care time included obtaining a history; examining the patient; pulse oximetry; ordering and review of studies; arranging urgent treatment with development of a management plan; evaluation of patient's response to treatment; frequent reassessment; and discussions with other providers. It was exclusive of separately billable procedures and treating other patients and teaching time. Please see Assessment and Plan section and the rest of the note for further information on patient assessment and treatment [employer] Consult Note Consult date: 12/02/20 Time Seen: 09:41 Reason for consult: Acute hypoxic respiratory failure, COVID-19 pneumonia, interstitial lung disease HPI: Patricia Corral is a 75 year old female with significant past medical history of coronary artery disease with stent x3 in April 2018, essential hypertension, GERD, hyperlipidemia, interstitial lung disease/IPF on 4 L home O2, hypothyroidism presented the ED on 11/22/2020 with complains of weakness of breath approximately 3 days prior to admission. He was found to be hypoxi
--- NOTE | 2020-12-02 12:17 | PCDIET ---
ICU Rounding Note: Patient just transferred to ICU and was intubated. MD plans to start tube feedings 12/03/20. If plan changes and feedings initiated later today, recommend Vital 1.2 at goal rate of 50mL/hr x 22 hours/day for 1320kcal, 82g protein and 892mL free water. Suggest 30mL water flush every 4 hours. Last recorded weight is 68.5kg. Recommend daily weights in ICU. Bowel Motility: Last documented BM on 11/28/20. Labs Reviewed: Glu (116), BUN (19), Cr (0.5), Na (133), Alb (3.1) Meds Noted: Albuterol, Vitamin C, Lipitor, Symbicort, Fentanyl, Lasix, Atrovent, Synthroid, Meropenem, Protonix, Toprol XL, Versed, Remdesivir, Vitamin D, Vancomycin, Zinc Sulfate Additional Notes: No documented pressure sores. Following daily in ICU rounds. Assessing/reassessing every 3 days.
[2020-12-02 12:21] LABS: Base Excess ABG 0.6 mEq/l (+/-2.0); Carboxyhemoglobin 0.3 % THb (0-2.0); Device VENTILATOR; Fractional Inspired Oxygen 100 %; HCO3 ABG 26.4 mEq/l (22.0-26.0); Methemoglobin ABG 0.1 %THb (0-1.5); Modified Allen's Test Pass; Oxygen Content ABG 15.8 %vol (16.0-22.0); Oxygen Saturation ABG 92.9 % (95.0-100.0); Oxyhemoglobin 91.1 % THb (90.0-100.0); PCO2 ABG 47.1 mmHg (35.0-45.0); PO2 ABG 67.9 mmHg (80.0-100.0); PO2 FiO2 Ratio Arterial Blood 0.68 %; Reduced Hemoglobin 8.5 %THb (0-5.0); Site Drawn LEFT RADIAL; Total Hemoglobin 12.3 g/dL (12.0-18.0); pH ABG 7.366 (7.350-7.450)
[2020-12-02 12:22] LABS: Arterial Blood Gas PEEP 10 cmH2O; Arterial Blood Gas Vent Mode PRESSURE CONTROL; Arterial Blood Gas Ventilator rate 28 /MIN; Peak Inspiratory Pressure 38 cmH2O
[2020-12-02] MEDS: SODIUM CHLORIDE 0.9% IV 1,000 ML 50 ML (13:19)
--- NOTE | 2020-12-02 13:29 | PM.IMPN ---
Progress Note: A&P Assessment and Plan (1) Acute and chronic respiratory failure: Qualifiers: Respiratory failure complication: hypoxia Qualified Code(s): J96.21 - Acute and chronic respiratory failure with hypoxia Code(s): J96.20 - Acute and chronic respiratory failure, unspecified whether with hypoxia or hypercapnia Status: Acute Assessment and Plan: patient is 75-year-old female with a history of chronic respiratory failure on home oxygen 4 L with history of interstitial lung disease patient presented emergency department with a complaint cough shortness of breath and hypoxic and setting in 60s on 4L, she denies any fever or chills, chest x-ray showed Worsened diffuse lung disease, consistent with chronic interstitial lung disease with superimposed pneumonia versus pulmonary edema. Concern the patient has pneumonia patient started on Levaquin with exacerbation of COPD being treated with Solu-Medrol and updraft, patient is also tested for COVID-19 is pending currently patient under isolation will continue to monitor, states feeling little better compared to when she arrived patient currently denies a cough shortness of breath fever or chills. 11/24 patient COVID test is positive started the patient on dexamethasone 10, remdesivir 1/5, vitamin D, vitamin-C and zinc, will get the patient plasma, requiring high-flow oxygen, patient states feeling better denies any cough shortness of breath fever or chill, will continue to monitor patient goal is to wean the patient off high-flow oxygen and further recommendation to follow 11/25 patient COVID test is positive started the patient on dexamethasone 2/10, remdesivir 2/5, vitamin D, vitamin-C and zinc. patient will receive plasma today, today patient states feeling much better not a short breath, denies any fever or chills, discussed with the patient is still requiring high oxygen, plan is to continue monitoring the patient as her symptoms improve and requiring less than 6 L of oxygen and no fever for 2 days med with discharge planning, patient is seen by data control clerk and further recommendation to follow. 11/28 Patient tested positive for COVID on 11/22 and was started on dexamethasone 5/10, remdesivir 4/10 and plasma, also added vitamin D, vitamin-C, zinc, patient will complete her 5 day course of remdesivir on 11/29 will continue for another 5 days, remained clinically stable has no fever and and on high-flow oxygen, patient seen by pulmonology and further recommendation to follow. Patient is encouraged to do the prone ventilation as instructed this will help improve oxygenation. 11/29 Patient tested positive for COVID on 11/22 and was started on dexamethasone 5/10, remdesivir 5/10 and plasma, also added vitamin D, vitamin-C, zinc, today patient will complete 5 day course of remdesivir, will extend another 5 days today total of 10 days, is on high-flow oxygen, remains clinically stable on current regimen, encouraged prone ventilation, patient is seen by pulmonology agrees with plan, will continue to monitor as patient's symptoms improve further recommendation to follow. 11/30 Patient tested positive for COVID on 11/22 and was started on dexamethasone 610, remdesivir 6/10 and was given plasma, also added vitamin D, vitamin-C, zinc,on 11/29 patient completed 5 day course of remdesivir, and extend another 5 days for total of 610 days, patient is on high-flow oxygen, remains clinically stable on current regimen, encouraged prone ventilation, patient is seen by pulmonology agrees with plan, will continue to monitor as patient's symptoms improve further recommendation to follow. 12/01 Patient tested positive for COVID on 11/22 and was started on dexamethasone 7/10, remdesivir 7/10 and was given plasma, also added vitamin D, vitamin-C, zinc,on 11/29 patient completed 5 day course of remdesivir, on 11/29 and extend another 5 days for total of 6/10 days, patient is on high-flow oxygen, remains clinically stable on
[2020-12-02] MEDS: SODIUM CHLORIDE 0.9% IV 1,000 ML 50 ML IV CONT (14:18)
[2020-12-02] MEDS: CENTRAL LINE FLUSH 10 ML IV PUSH ×3 (14:30→17:25)
[2020-12-02] MEDS: NOREPINEPHRINE 8 MG/D5W 250 ML 8 MG/250 ML BAG 9.38 MG IV CONT (14:47)
[2020-12-02] MEDS: PANTOPRAZOLE SODIUM IV 40 MG VIAL IV PUSH (20:38)
[2020-12-03] VITALS (45 sets, daily range): BP systolic 84–103; BP diastolic 39–62; PULSE 70–129; RESP 25–28; TEMP 35.9–36.7; O2SAT 92–98
--- NOTE | 2020-12-03 | ECHO_ITS ---
Patient Info Name: Patricia Corral Age: 75 years : 1945 Gender: Female Ht: 66 in Wt: 147 lbs BSA: 1.77 m2 HR: 80 bpm BP: 103 / 60 mmHg Technical Quality: Poor Exam Date: 12/03/2020 11:06 AM Exam Location: [facility] Patient Status: Inpatient Admit Date: 11/23/2020 Staff Ordering Physician: Albin Cassidy MD Edge Runner: Cb Pedraza, ENRIQUE, RT Attending Provider: Brianna Prakash MD Exam Type: CA echo doppler color flow Study Info Indications R65.21 - Severe sepsis with septic shock Complete two-dimensional, color flow and Doppler transthoracic echocardiogram is performed. Summary 1. Complete two-dimensional, color flow and Doppler transthoracic echocardiogram is performed. 2. Technically suboptimal study due to poor sonographic images. No apical images acquired. 3. Left ventricular chamber dimension is normal. 4. Left ventricular systolic function is normal, estimated at 60-65%. 5. The left ventricular diastolic function is indeterminate. 6. There is moderate aortic valve sclerosis. Left Ventricle Technically suboptimal study due to poor sonographic images. No apical images acquired. Tissue doppler is not performed. Left ventricular chamber dimension is normal. Left ventricular systolic function is normal, estimated at 60-65%. The left ventricular diastolic function is indeterminate. Right Ventricle Right ventricular chamber dimension is not well visualized. Left Atria Left atrial chamber dimension is not well visualized. Right Atria Right atrial chamber dimension is not well visualized. Aortic Valve The aortic valve is trileaflet. There is moderate aortic valve sclerosis. There is no aortic valve stenosis. There is no aortic valve regurgitation. Pulmonic Valve The pulmonic valve is not well visualized. Mitral Valve The mitral valve has not well visualized. Tricuspid Valve The tricuspid valve leaflets are not well visualized. Pericardium/Pleural There is no pericardial effusion. Inferior Vena Cava Normal inferior vena cava with >50% collapse upon inspiration consistent with normal right atrial pressure, 5 mmHg. Aorta The aortic root size at the sinus of Valsalva is not well visualized. Left Ventricular Outflow Tract Name Value Normal LVOT 2D LVOT Diameter 1.9 cm LVOT Doppler LVOT Peak Velocity 81 cm/s LVOT Peak Gradient 3 mmHg LVOT Mean Gradient 2 mmHg LVOT VTI 17 cm LVOT VTI/AV VTI Ratio 0.7 LVOT Stroke Volume 47 ml LVOT CO 3.9 l/min LVOT CI 2.2 l/min/m2 Pulmonic Valve Name Value Normal PV Doppler PV Peak Velocity 98 cm/s PV Pea
[2020-12-03] MEDS: IPRATROPIUM BR 0.02% INH SOLN 0.5 MG/2.5 ML VIAL INHALATION ×4 (02:13→19:46)
[2020-12-03] MEDS: ALBUTEROL SULFATE NEB 2.5 MG/0.5 ML INH INHALATION ×4 (02:14→19:46)
[2020-12-03 04:06] LABS: Alveolar/Arterial O2 Gradient 454.4 mmHg; Base Excess ABG 2.5 mEq/l (+/-2.0); Carboxyhemoglobin 0.3 % THb (0-2.0); Fractional Inspired Oxygen 80 %; HCO3 ABG 25.5 mEq/l (22.0-26.0); Methemoglobin ABG 0.3 %THb (0-1.5); Oxygen Content ABG 15.7 %vol (16.0-22.0); Oxygen Saturation ABG 96.7 % (95.0-100.0); Oxyhemoglobin 95.7 % THb (90.0-100.0); PCO2 ABG 34.1 mmHg (35.0-45.0); PO2 ABG 80.2 mmHg (80.0-100.0); Reduced Hemoglobin 3.7 %THb (0-5.0); Total Hemoglobin 11.6 g/dL (12.0-18.0); pH ABG 7.492 (7.350-7.450)
[2020-12-03 04:07] LABS: Arterial Blood Gas PEEP 10 cmH2O; Arterial Blood Gas Vent Mode PRESSURE CONTROL; Arterial Blood Gas Ventilator rate 28 /MIN; Device VENTILATOR; Modified Allen's Test Pass; Peak Inspiratory Pressure 38 cmH2O; Site Drawn LEFT RADIAL
[2020-12-03 05:10] LABS: Basophils Percent Auto 0.1 % (0.2-1.2); Hematocrit 31.6 % (37.0-47.0); Hemoglobin 10.5 g/dL (12.0-15.0); Immature Granulocyte Absolute 0.27 K/mm3 (0.00-0.031); Lymphocytes Absolute Auto 1.81 K/mm3 (0.9-3.2); Lymphocytes Percent Auto 6.8 % (18.3-44.2); Mean Corpuscular HGB Conc 33.2 g/dl (32-36); Mean Corpuscular Hemoglobin 30.3 pg (26-34); Mean Corpuscular Volume 91.1 fl (80-100); Mean Platelet Volume 11.2 fl (7.4-10.4); Monocytes Absolute Auto 1.6 K/mm3 (0.1-0.6); Monocytes Percent Auto 5.9 % (2.6-8.5); Neutrophils Absolute Auto 22.8 K/mm3 (1.3-6.7); Neutrophils Percent Auto 86.2 % (45.5-73.1); Platelet Count Result 245 k/mm3 (150-375); Red Blood Count 3.47 M/mm3 (4.2-5.4); Red Cell Distribution Width 14.3 % (11.5-14.5); White Blood Count 26.5 K/mm3 (4.5-10.0)
[2020-12-03 05:23] LABS: D Dimer 0.67 ug/mL (<0.48)
[2020-12-03 05:34] LABS: Alanine Aminotransferase 13 U/L (4-35); Albumin Level 2.6 g/dL (3.5-5.1); Alkaline Phosphatase 96 U/L (38-126); Anion Gap 1 mmol/L (8-16); Aspartate Amino Transferase 20 U/L (14-36); Bilirubin,Total 0.4 mg/dL (0.2-1.3); Blood Urea Nitrogen 16 mg/dL (7-17); Calcium 7.5 mg/dL (8.4-10.2); Carbon Dioxide 31 mmol/L (22-30); Chloride 100 mmol/L (98-107); Estimated CRCL calculation 78 ml/min; Estimated Glomerular Filt Rate > 60; Glucose 148 mg/dL (65-105); Lactate Dehydrogenase 820 U/L (313-618); Potassium 3.6 mmol/L (3.4-5.0); Sodium 132 mmol/L (137-145)
[2020-12-03] MEDS: CENTRAL LINE FLUSH 10 ML IV PUSH ×4 (05:42→20:29)
[2020-12-03 05:47] LABS: CRP 25.7 mg/dL (<1.0)
[2020-12-03] MEDS: LEVOTHYROXINE SODIUM 75 MCG TABLET PO (06:20)
[2020-12-03] MEDS: SODIUM CHLORIDE 0.9% IV 1,000 ML 50 ML IV CONT (06:20)
[2020-12-03] MEDS: NOREPINEPHRINE 8 MG/D5W 250 ML 8 MG/250 ML BAG 15 MG IV CONT (06:22)
--- NOTE | 2020-12-03 08:50 | WPDINTPN ---
Progress Note: A&P Assessment and Plan (1) Acute on chronic respiratory failure with hypoxemia: Code(s): J96.21 - Acute and chronic respiratory failure with hypoxia Status: Acute Assessment and Plan: Acute on chronic hypoxic respiratory failure likely related to IPF flare and COVID-19 pneumonia -failed BiPAP to and intubated on 12/02/2020. Intubation was uneventful -patient had elevated peak pressures on CMV mode of ventilation, switched her to pressure control ventilation, -currently on pressure control of 38, rate of 28, FiO2 80%, peep 10 -chest x-ray and ABG reviewed -change pressure controlled 32 and decrease FiO2 to 70% -will try prone ventilation today -on fentanyl and Versed for sedation (2) Sepsis: Qualifiers: Acute respiratory failure type: with hypoxia Sepsis acute organ dysfunction status: with acute organ dysfunction Sepsis type: sepsis due to unspecified organism Severe sepsis acute organ dysfunction type: acute respiratory failure Severe sepsis shock status: without septic shock Qualified Code(s): A41.9 - Sepsis, unspecified organism; R65.20 - Severe sepsis without septic shock; J96.01 - Acute respiratory failure with hypoxia Code(s): A41.9 - Sepsis, unspecified organism Status: Acute Assessment and Plan: Increasing leukocytosis which could be related to steroids, infection/pneumonia -patient has been started on meropenem and vancomycin per pulmonology -blood cultures have been negative and patient is afebrile -chest x-ray with no significant change -continue bronchodilators (3) Pneumonia due to COVID-19 virus: Code(s): U07.1 - COVID-19; J12.82 - Pneumonia due to coronavirus disease 2019 Status: Acute Assessment and Plan: SARS-CoV-2 PCR positive on 11/22/2020 -continue dexamethasone for total of 10 days (initiated on 11/25/2020) -patient getting total of 10 days of Remdesivir (initiated on 11/24/2020) -continue droplet, atrial, contact isolation/precautions -monitor inflammatory markers (4) DVT prophylaxis: Code(s): Z29.9 - Encounter for prophylactic measures, unspecified Status: Acute Assessment and Plan: Lovenox 40 mg subcu q.12 (5) Dietary counseling and surveillance: Code(s): Z71.3 - Dietary counseling and surveillance Status: Acute Assessment and Plan: Stress ulcer prophylaxis: Protonix IV Start Tube Feeds (6) Shock: Code(s): R57.9 - Shock, unspecified Status: Acute Assessment and Plan: Patient currently on Levophed could be secondary to sepsis sedation and hypovolemia Add 25% albumin Check echo Conservative IV fluid strategy Continue Levophed Additional Plan Code status: Full code Critical care time spent: 32 minutes Due to a high probability of clinically significant, life threatening deterioration, the patient required my highest level of preparedness to intervene emergently and I personally spent this critical care time directly and personally managing the patient. This critical care time included obtaining a history; examining the patient; pulse oximetry; ordering and review of studies; arranging urgent treatment with development of a management plan; evaluation of patient's response to treatment; frequent reassessment; and discussions with other providers. It was exclusive of separately billable procedures and treating other patients and teaching time. Please see Assessment and Plan section and the rest of the note for further information on patient assessment and treatment Subjective Date/time seen: 12/03/20 0820 Overnight events reviewed. Afebrile Continues to be on mechanical ventilation pressure control Continues to be on sedation and Levophed Vitals acceptable Interval history: Patient awith H/O IPF for 3-4 years on 4 L NC oxygen presented 11/23 with COVID pneumonia and hypoxic respiratory failure. Remdesivir started 11/24, dexamethasone started 11/25, s/p convales
[2020-12-03] MEDS: SODIUM CHLORIDE 0.9% IV 500 ML IV CONT (09:05)
[2020-12-03] MEDS: CHOLECALCIFEROL 1,000 UNITS TABLET 1000 UNITS PO (09:07)
[2020-12-03] MEDS: ATORVASTATIN 10 MG TABLET PO (09:07)
[2020-12-03] MEDS: ASCORBIC ACID 500 MG TABLET PO (09:07)
[2020-12-03] MEDS: ENOXAPARIN 40 MG/0.4 ML SYRINGE SUB-Q ×2 (09:07→20:28)
[2020-12-03] MEDS: PANTOPRAZOLE SODIUM IV 40 MG VIAL IV PUSH ×2 (09:08→20:29)
[2020-12-03] MEDS: ZINC SULFATE 220 MG CAPSULE PO (09:08)
[2020-12-03] MEDS: DEXAMETHASONE SOD PHOS INJ 4 MG/ML VIAL 6 MG IV PUSH (09:09)
[2020-12-03] MEDS: REMDESIVIR 100 MG/NS 250 ML 100 MG/250 ML BAG 250 MG IVPB (09:10)
[2020-12-03] MEDS: FENTANYL 2,500MCG/NS250ML(*CRX 2,500 MCG/250 ML BAG 10 MCG IV CONT (09:27)
--- NOTE | 2020-12-03 10:52 | PCDIET ---
Nutrition Follow-Up Complete: Nutrition Diagnosis: Involuntary weight loss related to decreased appetite as evidenced by patient reporting 2-13 pound weight loss with decreased appetite. Nutrition Goal: Patient to meet estimated nutritional needs. Goal in progress. MD ordering tube feedings today. Recommend Vital 1.2 at goal of 50mL/hr which will provide 1320kcal, 82g protein and 892mL free water over 22 hours/day. Suggest 30mL water flush every 4 hours. Last recorded weight is 67 kg which is decreased from last review. -I/O. Intakes poor over past few days, as well. Bowel Motility: Last documented BM on 11/27/20. Bowel sounds hypoactive, per nursing notes. Labs Reviewed: Hgb (10.5), Hct (31.6), Cr (0.5), Na (132), Alb (2.6), Mele Ca (8.62) Meds Noted: Albumin, Albuterol, Vitamin C, Lipitor, Symbicort, Decadron, Fentanyl, Atrovent, Synthroid, Meropenem, Versed, Levophed, Protonix, Remdesivir, NS at 50mL/hr, Vancomycin, Vitamin D, Zinc Sulfate Additional Notes: No documented skin breakdown. Plan to prone patient today. Will continue to monitor with same goal. Nutrition Monitoring and Evaluation: Follow up every Sunday/Sunday.
[2020-12-03] MEDS: ALBUMIN HUMAN 25% 25 GM/100 ML 100 ML IVPB ×2 (11:07→17:10)
[2020-12-03] MEDS: MIDAZOLAM HCL (*CRX) 2 MG/2 ML VIAL 4 MG IV PUSH (12:11)
[2020-12-03] MEDS: PROPOFOL IV EMULSION 100 ML 8.04 MG IV CONT (12:40)
[2020-12-03 14:23] LABS: Alveolar/Arterial O2 Gradient 378.4 mmHg; Base Excess ABG 4.3 mEq/l (+/-2.0); Fractional Inspired Oxygen 70 %; HCO3 ABG 29.4 mEq/l (22.0-26.0); Oxygen Content ABG 14.1 %vol (16.0-22.0); Oxygen Saturation ABG 94.5 % (95.0-100.0); Oxyhemoglobin 92.4 % THb (90.0-100.0); PCO2 ABG 46.2 mmHg (35.0-45.0); PO2 FiO2 Ratio Arterial Blood 1.01 %; Total Hemoglobin 10.8 g/dL (12.0-18.0); pH ABG 7.421 (7.350-7.450)
[2020-12-03 14:24] LABS: Arterial Blood Gas Vent Mode PRESSURE CONTROL; Arterial Blood Gas Ventilator rate 28 /MIN; Device VENTILATOR; Site Drawn LEFT BRACHIAL
[2020-12-03 14:25] LABS: Arterial Blood Gas PEEP 10 cmH2O; Peak Inspiratory Pressure 32 cmH2O
[2020-12-03] MEDS: NOREPINEPHRINE 8 MG/D5W 250 ML 8 MG/250 ML BAG 18.75 MG IV CONT (20:30)
[2020-12-03 23:37] LABS: Vancomycin Trough 9.3 ug/mL (10.0-20.0)
[2020-12-04] VITALS (42 sets, daily range): BP systolic 95–116; BP diastolic 47–75; PULSE 76–110; RESP 20–30; TEMP 36.1–37.7; O2SAT 86–94
[2020-12-04] MEDS: ALBUMIN HUMAN 25% 25 GM/100 ML 100 ML IVPB ×5 (00:17→23:11)
[2020-12-04] MEDS: IPRATROPIUM BR 0.02% INH SOLN 0.5 MG/2.5 ML VIAL INHALATION ×4 (01:51→20:13)
[2020-12-04] MEDS: ALBUTEROL SULFATE NEB 2.5 MG/0.5 ML INH INHALATION ×4 (01:51→20:13)
[2020-12-04 04:55] LABS: Alveolar/Arterial O2 Gradient 377.4 mmHg; Base Excess ABG 6.1 mEq/l (+/-2.0); Carboxyhemoglobin 0.3 % THb (0-2.0); Device VENTILATOR; Fractional Inspired Oxygen 70 %; HCO3 ABG 31.3 mEq/l (22.0-26.0); Methemoglobin ABG 0.2 %THb (0-1.5); Modified Allen's Test Unable to perform; Oxygen Content ABG 15.2 %vol (16.0-22.0); Oxygen Saturation ABG 94.4 % (95.0-100.0); Oxyhemoglobin 92.9 % THb (90.0-100.0); PO2 ABG 70.1 mmHg (80.0-100.0); Reduced Hemoglobin 6.6 %THb (0-5.0); Site Drawn RIGHT RADIAL; Total Hemoglobin 11.6 g/dL (12.0-18.0); pH ABG 7.432 (7.350-7.450)
[2020-12-04 04:56] LABS: Arterial Blood Gas PEEP 10 cmH2O; Arterial Blood Gas Vent Mode PRESSURE CONTROL; Arterial Blood Gas Ventilator rate 28 /MIN
[2020-12-04 04:57] LABS: Peak Inspiratory Pressure 32 cmH2O
[2020-12-04] MEDS: CENTRAL LINE FLUSH 10 ML IV PUSH ×4 (06:26→19:40)
[2020-12-04] MEDS: LEVOTHYROXINE SODIUM 75 MCG TABLET PO (06:27)
[2020-12-04 07:02] LABS: Alanine Aminotransferase 10 U/L (4-35); Albumin Level 3.2 g/dL (3.5-5.1); Alkaline Phosphatase 70 U/L (38-126); Anion Gap 1 mmol/L (8-16); Aspartate Amino Transferase 17 U/L (14-36); Bilirubin,Total 0.4 mg/dL (0.2-1.3); Blood Urea Nitrogen 11 mg/dL (7-17); Calcium 7.8 mg/dL (8.4-10.2); Carbon Dioxide 35 mmol/L (22-30); Chloride 100 mmol/L (98-107); Estimated CRCL calculation 70 ml/min; Estimated Glomerular Filt Rate > 60; Glucose 142 mg/dL (65-105); Magnesium 2.2 mg/dL (1.6-2.3); Phosphorus 1.7 mg/dL (2.5-4.5); Potassium 3.4 mmol/L (3.4-5.0); Sodium 136 mmol/L (137-145)
[2020-12-04] MEDS: CHOLECALCIFEROL 1,000 UNITS TABLET 1000 UNITS PO (07:53)
[2020-12-04] MEDS: ZINC SULFATE 220 MG CAPSULE PO (07:53)
[2020-12-04] MEDS: ATORVASTATIN 10 MG TABLET PO (07:53)
[2020-12-04] MEDS: ASCORBIC ACID 500 MG TABLET PO (07:53)
[2020-12-04] MEDS: DEXAMETHASONE SOD PHOS INJ 4 MG/ML VIAL 6 MG IV PUSH (07:54)
[2020-12-04] MEDS: PANTOPRAZOLE SODIUM IV 40 MG VIAL IV PUSH ×2 (07:54→19:40)
[2020-12-04] MEDS: ENOXAPARIN 40 MG/0.4 ML SYRINGE SUB-Q ×2 (07:55→19:40)
--- NOTE | 2020-12-04 08:20 | WPDINTPN ---
Progress Note: A&P Assessment and Plan (1) Acute on chronic respiratory failure with hypoxemia: Code(s): J96.21 - Acute and chronic respiratory failure with hypoxia Status: Acute Assessment and Plan: Acute on chronic hypoxic respiratory failure likely related to IPF flare and COVID-19 pneumonia -failed BiPAP to and intubated on 12/02/2020. Intubation was uneventful -patient had elevated peak pressures on CMV mode of ventilation, switched her to pressure control ventilation, - 2/5 Patient was tried on prone position but she did not tolerate it. Heart rate remained high in 130s despite increasing sedation and adding propofol. Her tidal volumes also dropped on the ventilator to 200s despite high pressures. Patient was placed back in supine position after a hour. If needed will re-attempt in assist control and will likely need paralytic -currently on pressure control of 32, rate of 28, FiO2 70%, peep 10 -chest x-ray and ABG reviewed -on fentanyl and Versed for sedation (2) Sepsis: Qualifiers: Acute respiratory failure type: with hypoxia Sepsis acute organ dysfunction status: with acute organ dysfunction Sepsis type: sepsis due to unspecified organism Severe sepsis acute organ dysfunction type: acute respiratory failure Severe sepsis shock status: without septic shock Qualified Code(s): A41.9 - Sepsis, unspecified organism; R65.20 - Severe sepsis without septic shock; J96.01 - Acute respiratory failure with hypoxia Code(s): A41.9 - Sepsis, unspecified organism Status: Acute Assessment and Plan: Increasing leukocytosis which could be related to steroids, infection/pneumonia -patient has been started on meropenem and vancomycin per pulmonology -blood cultures have been negative and patient is afebrile -chest x-ray with no significant change -continue bronchodilators (3) Pneumonia due to COVID-19 virus: Code(s): U07.1 - COVID-19; J12.82 - Pneumonia due to coronavirus disease 2019 Status: Acute Assessment and Plan: SARS-CoV-2 PCR positive on 11/22/2020 -continue dexamethasone for total of 10 days (initiated on 11/25/2020) -patient getting total of 10 days of Remdesivir (initiated on 11/24/2020) -continue droplet, atrial, contact isolation/precautions -monitor inflammatory markers (4) DVT prophylaxis: Code(s): Z29.9 - Encounter for prophylactic measures, unspecified Status: Acute Assessment and Plan: Lovenox 40 mg subcu q.12 (5) Dietary counseling and surveillance: Code(s): Z71.3 - Dietary counseling and surveillance Status: Acute Assessment and Plan: Stress ulcer prophylaxis: Protonix IV Continue to advance Tube Feeds to goal (6) Shock: Code(s): R57.9 - Shock, unspecified Status: Acute Assessment and Plan: Patient currently on Levophed could be secondary to sepsis sedation and hypovolemia Continue 25% albumin Reviewed echo Conservative IV fluid strategy Continue Levophed Additional Plan Code status: Full code/ I spoke to patient's POA yesterday by phone and updated him with patient's status Critical care time spent: 30 minutes Due to a high probability of clinically significant, life threatening deterioration, the patient required my highest level of preparedness to intervene emergently and I personally spent this critical care time directly and personally managing the patient. This critical care time included obtaining a history; examining the patient; pulse oximetry; ordering and review of studies; arranging urgent treatment with development of a management plan; evaluation of patient's response to treatment; frequent reassessment; and discussions with other providers. It was exclusive of separately billable procedures and treating other patients and teaching time. Please see Assessment and Plan section and the rest of the note for further information on patient assessment and treatment Subjective Date
--- NOTE | 2020-12-04 13:41 | P.PNIM_ITS ---
Progress Note: A&P Assessment and Plan (1) Acute and chronic respiratory failure: Qualifiers: Respiratory failure complication: hypoxia Qualified Code(s): J96.21 - Acute and chronic respiratory failure with hypoxia Code(s): J96.20 - Acute and chronic respiratory failure, unspecified whether with hypoxia or hypercapnia Status: Acute Assessment and Plan: 12/04/20 13:41 patient is 75-year-old female with a history of chronic respiratory failure on home oxygen 4 L with history of interstitial lung disease patient presented emergency department with a complaint cough shortness of breath and hypoxic and setting in 60s on 4L, she denies any fever or chills, chest x-ray showed Worsened diffuse lung disease, consistent with chronic interstitial lung disease with superimposed pneumonia versus pulmonary edema. Concern the patient has pneumonia patient started on Levaquin with exacerbation of COPD being treated with Solu-Medrol and updraft, patient is also tested for COVID-19 is pending currently patient under isolation will continue to monitor, states feeling little better compared to when she arrived patient currently denies a cough shortness of breath fever or chills. 11/24 patient COVID test is positive started the patient on dexamethasone 1/10, remdesivir 1/5, vitamin D, vitamin-C and zinc, will get the patient plasma, requiring high-flow oxygen, patient states feeling better denies any cough shortness of breath fever or chill, will continue to monitor patient goal is to wean the patient off high-flow oxygen and further recommendation to follow 11/25 patient COVID test is positive started the patient on dexamethasone 2/10, remdesivir 2/5, vitamin D, vitamin-C and zinc. patient will receive plasma today, today patient states feeling much better not a short breath, denies any fever or chills, discussed with the patient is still requiring high oxygen, plan is to continue monitoring the patient as her symptoms improve and requiring less than 6 L of oxygen and no fever for 2 days med with discharge planning, patient is seen by biomedical engineering technologist and further recommendation to follow. 11/28 Patient tested positive for COVID on 11/22 and was started on dexamethasone 5/10, remdesivir 4/10 and plasma, also added vitamin D, vitamin-C, zinc, patient will complete her 5 day course of remdesivir on 11/29 will continue for another 5 days, remained clinically stable has no fever and and on high-flow oxygen, patient seen by pulmonology and further recommendation to follow. Patient is encouraged to do the prone ventilation as instructed this will help improve oxygenation. 11/29 Patient tested positive for COVID on 11/22 and was started on dexamethasone 5/10, remdesivir 5/10 and plasma, also added vitamin D, vitamin-C, zinc, today patient will complete 5 day course of remdesivir, will extend another 5 days today total of 10 days, is on high-flow oxygen, remains clinically stable on current regimen, encouraged prone ventilation, patient is seen by pulmonology agrees with plan, will continue to monitor as patient's symptoms improve further recommendation to follow. 11/30 Patient tested positive for COVID on 11/22 and was started on dexamethasone 610, remdesivir 10 and was given plasma, also added vitamin D, vitamin-C, zinc,on 11/29 patient completed 5 day course of remdesivir, and extend another 5 days for total of 610 days, patient is on high-flow oxygen, remains clinically stable on current regimen, encouraged prone ventilation, patient is seen by pulmonology agrees with plan, will continue to monitor as patient's symptoms improve further recommendation to follow. 12/01 Patient tested positive for COVID on 11/22 and was started on dexamethasone 05/07, remdesi
[2020-12-04] MEDS: NOREPINEPHRINE 8 MG/D5W 250 ML 8 MG/250 ML BAG 7.5 MG IV CONT (17:05)
[2020-12-04] MEDS: FENTANYL 2,500MCG/NS250ML(*CRX 2,500 MCG/250 ML BAG IV CONT (18:13)
[2020-12-05] VITALS (37 sets, daily range): BP systolic 79–130; BP diastolic 51–70; PULSE 60–106; RESP 25–31; TEMP 35.7–37.6; O2SAT 89–98
[2020-12-05] MEDS: ALBUTEROL SULFATE NEB 2.5 MG/0.5 ML INH INHALATION ×2 (03:16→08:19)
[2020-12-05] MEDS: IPRATROPIUM BR 0.02% INH SOLN 0.5 MG/2.5 ML VIAL INHALATION ×2 (03:17→08:19)
[2020-12-05 04:51] LABS: D Dimer 0.88 ug/mL (<0.48)
[2020-12-05 05:23] LABS: Alveolar/Arterial O2 Gradient 490.3 mmHg; Base Excess ABG 9.1 mEq/l (+/-2.0); Carboxyhemoglobin 0.3 % THb (0-2.0); Fractional Inspired Oxygen 85 %; HCO3 ABG 34.6 mEq/l (22.0-26.0); Methemoglobin ABG 0.3 %THb (0-1.5); Oxygen Content ABG 11.3 %vol (16.0-22.0); Oxygen Saturation ABG 91.6 % (95.0-100.0); Oxyhemoglobin 90.7 % THb (90.0-100.0); PCO2 ABG 52.9 mmHg (35.0-45.0); PO2 ABG 60.9 mmHg (80.0-100.0); PO2 FiO2 Ratio Arterial Blood 0.72 %; Reduced Hemoglobin 8.7 %THb (0-5.0); Total Hemoglobin 8.8 g/dL (12.0-18.0); pH ABG 7.433 (7.350-7.450)
[2020-12-05 05:24] LABS: Device VENTILATOR; Site Drawn RIGHT BRACHIAL
[2020-12-05 05:25] LABS: Arterial Blood Gas PEEP 10 cmH2O; Arterial Blood Gas Vent Mode PRESSURE CONTROL; Arterial Blood Gas Ventilator rate 28 /MIN; Peak Inspiratory Pressure 32 cmH2O
[2020-12-05 05:27] LABS: Alanine Aminotransferase 13 U/L (4-35); Alkaline Phosphatase 77 U/L (38-126); Aspartate Amino Transferase 28 U/L (14-36); Bilirubin,Total 0.5 mg/dL (0.2-1.3); Blood Urea Nitrogen 13 mg/dL (7-17); CRP 4.7 mg/dL (<1.0); Calcium 8.5 mg/dL (8.4-10.2); Carbon Dioxide > 40 mmol/L (22-30); Chloride 98 mmol/L (98-107); Estimated CRCL calculation 70 ml/min; Estimated Glomerular Filt Rate > 60; Glucose 108 mg/dL (65-105); Lactate Dehydrogenase 615 U/L (313-618); Magnesium 2.4 mg/dL (1.6-2.3); Phosphorus 1.8 mg/dL (2.5-4.5); Potassium 3.5 mmol/L (3.4-5.0); Sodium 140 mmol/L (137-145)
[2020-12-05] MEDS: ALBUMIN HUMAN 25% 25 GM/100 ML 100 ML IVPB (06:20)
[2020-12-05] MEDS: CENTRAL LINE FLUSH 10 ML IV PUSH ×4 (06:20→22:07)
[2020-12-05] MEDS: LEVOTHYROXINE SODIUM 75 MCG TABLET PO (06:21)
[2020-12-05] MEDS: POTASSIUM PHOS,M-BASIC-D-BASIC 20 MMOL in SODIUM CHLORIDE 0.9% IV 250 ML 64 MMOL IVPB (08:54)
[2020-12-05] MEDS: ENOXAPARIN 40 MG/0.4 ML SYRINGE SUB-Q ×2 (08:57→20:06)
[2020-12-05] MEDS: PANTOPRAZOLE SODIUM IV 40 MG VIAL IV PUSH ×2 (08:58→20:06)
[2020-12-05] MEDS: ASCORBIC ACID 500 MG TABLET PO (08:58)
[2020-12-05] MEDS: ZINC SULFATE 220 MG CAPSULE PO (08:58)
[2020-12-05] MEDS: CHOLECALCIFEROL 1,000 UNITS TABLET 1000 UNITS PO (08:58)
[2020-12-05] MEDS: ATORVASTATIN 10 MG TABLET PO (08:58)
--- NOTE | 2020-12-05 09:00 | WPDINTPN ---
Progress Note: A&P Assessment and Plan (1) Acute on chronic respiratory failure with hypoxemia: Code(s): J96.21 - Acute and chronic respiratory failure with hypoxia Status: Acute Assessment and Plan: Acute on chronic hypoxic respiratory failure likely related to IPF flare and COVID-19 pneumonia -failed BiPAP to and intubated on 12/02/2020. Intubation was uneventful -patient had elevated peak pressures on CMV mode of ventilation, switched her to pressure control ventilation, - / Patient was tried on prone position but she did not tolerate it. Heart rate remained high in 130s despite increasing sedation and adding propofol. Her tidal volumes also dropped on the ventilator to 200s despite high pressures. Patient was placed back in supine position after a hour. If needed will re-attempt in assist control and will likely need paralytic -increase FiO2 requirement overnight to 85% -change to assist control tidal volume 330, rate 28, FiO2 85%, PEEP increased to 14 -will try inhaled Flolan today -may have to paralyzed patient and re-attempt prone mechanical ventilation -currently on pressure control of 32, rate of 28, FiO2 70%, peep 10 -chest x-ray and ABG reviewed -on fentanyl and Versed for sedation (2) Sepsis: Qualifiers: Acute respiratory failure type: with hypoxia Sepsis acute organ dysfunction status: with acute organ dysfunction Sepsis type: sepsis due to unspecified organism Severe sepsis acute organ dysfunction type: acute respiratory failure Severe sepsis shock status: without septic shock Qualified Code(s): A41.9 - Sepsis, unspecified organism; R65.20 - Severe sepsis without septic shock; J96.01 - Acute respiratory failure with hypoxia Code(s): A41.9 - Sepsis, unspecified organism Status: Acute Assessment and Plan: Increasing leukocytosis which could be related to steroids, infection/pneumonia -patient has been started on meropenem and vancomycin per pulmonology -blood cultures have been negative and patient is afebrile -chest x-ray with no significant change -continue bronchodilators (3) Pneumonia due to COVID-19 virus: Code(s): U07.1 - COVID-19; J12.82 - Pneumonia due to coronavirus disease 2019 Status: Acute Assessment and Plan: SARS-CoV-2 PCR positive on 11/22/2020 -continue dexamethasone for total of 10 days (initiated on 11/25/2020) -patient getting total of 10 days of Remdesivir (initiated on 11/24/2020) -continue droplet, atrial, contact isolation/precautions -monitor inflammatory markers (4) DVT prophylaxis: Code(s): Z29.9 - Encounter for prophylactic measures, unspecified Status: Acute Assessment and Plan: Lovenox 40 mg subcu q.12 (5) Dietary counseling and surveillance: Code(s): Z71.3 - Dietary counseling and surveillance Status: Acute Assessment and Plan: Stress ulcer prophylaxis: Protonix IV Tube feeds were held last night due to high residuals. Will resume at lower rate Add Reglan (6) Shock: Code(s): R57.9 - Shock, unspecified Status: Acute Assessment and Plan: Patient currently on Levophed could be secondary to sepsis sedation and hypovolemia Discontinue 25% albumin Reviewed echo Conservative IV fluid strategy Continue Levophed if needed. currently off Additional Plan Code status: DNR I spoke to patient's POGillian Bailey by phone and updated him with patient's status. I explained to him patient's increased oxygen requirement, the fact that she did not tolerate prone position day before yesterday and planned for today of starting Flolan and may re-attempt prone position. I also discussed goals of care and he told me that patient would not want to be on mechanical ventilation for prolonged period of time if she is not getting better. He also felt that patient would not want to be resuscitated if she has a cardiac arrest secondary to her respiratory failure. As per his request and assessme
[2020-12-05] MEDS: EPOPROSTENOL SODIUM 0.5 MG VIAL 1 MG INHALATION ×3 (09:33→23:26)
[2020-12-05] MEDS: METOCLOPRAMIDE HCL 10 MG/10 ML SOLN UDC PO ×3 (09:48→20:07)
[2020-12-05 10:38] LABS: Alveolar/Arterial O2 Gradient 469.1 mmHg; Base Excess ABG 9.9 mEq/l (+/-2.0); Carboxyhemoglobin 0.3 % THb (0-2.0); Fractional Inspired Oxygen 85 %; Methemoglobin ABG 0.5 %THb (0-1.5); Oxygen Content ABG 10.8 %vol (16.0-22.0); Oxygen Saturation ABG 91.1 % (95.0-100.0); Oxyhemoglobin 90.4 % THb (90.0-100.0); PCO2 ABG 68.9 mmHg (35.0-45.0); PO2 ABG 65.5 mmHg (80.0-100.0); PO2 FiO2 Ratio Arterial Blood 0.77 %; Reduced Hemoglobin 8.8 %THb (0-5.0); Total Hemoglobin 8.4 g/dL (12.0-18.0); pH ABG 7.348 (7.350-7.450)
[2020-12-05 10:39] LABS: Arterial Blood Gas Ventilator rate 28 /MIN; Device VENTILATOR; Modified Allen's Test Pass; Site Drawn LEFT RADIAL
[2020-12-05 10:40] LABS: Arterial Blood Gas PEEP 14 cmH2O; Arterial Blood Gas Tidal Volume 330 ml; Arterial Blood Gas Vent Mode CMV
[2020-12-05] MEDS: PROPOFOL IV EMULSION 100 ML 12.06 MG IV CONT (11:18)
[2020-12-05] MEDS: ROCURONIUM BROMIDE 50 MG/5 ML VIAL IV PUSH (11:20)
--- NOTE | 2020-12-05 14:28 | PM.IMPN ---
Progress Note: A&P Assessment and Plan (1) Acute and chronic respiratory failure: Qualifiers: Respiratory failure complication: hypoxia Qualified Code(s): J96.21 - Acute and chronic respiratory failure with hypoxia Code(s): J96.20 - Acute and chronic respiratory failure, unspecified whether with hypoxia or hypercapnia Status: Acute Assessment and Plan: 12/05/20 patient is 75-year-old female with a history of chronic respiratory failure on home oxygen 4 L with history of interstitial lung disease patient presented emergency department with a complaint cough shortness of breath and hypoxic and setting in 60s on 4L, she denies any fever or chills, chest x-ray showed Worsened diffuse lung disease, consistent with chronic interstitial lung disease with superimposed pneumonia versus pulmonary edema. Concern the patient has pneumonia patient started on Levaquin with exacerbation of COPD being treated with Solu-Medrol and updraft, patient is also tested for COVID-19 is pending currently patient under isolation will continue to monitor, states feeling little better compared to when she arrived patient currently denies a cough shortness of breath fever or chills. 11/24 patient COVID test is positive started the patient on dexamethasone 10, remdesivir 1/5, vitamin D, vitamin-C and zinc, will get the patient plasma, requiring high-flow oxygen, patient states feeling better denies any cough shortness of breath fever or chill, will continue to monitor patient goal is to wean the patient off high-flow oxygen and further recommendation to follow 11/25 patient COVID test is positive started the patient on dexamethasone 2/10, remdesivir 2/5, vitamin D, vitamin-C and zinc. patient will receive plasma today, today patient states feeling much better not a short breath, denies any fever or chills, discussed with the patient is still requiring high oxygen, plan is to continue monitoring the patient as her symptoms improve and requiring less than 6 L of oxygen and no fever for 2 days med with discharge planning, patient is seen by production support manager and further recommendation to follow. 11/28 Patient tested positive for COVID on 11/22 and was started on dexamethasone 5/10, remdesivir 4/10 and plasma, also added vitamin D, vitamin-C, zinc, patient will complete her 5 day course of remdesivir on 11/29 will continue for another 5 days, remained clinically stable has no fever and and on high-flow oxygen, patient seen by pulmonology and further recommendation to follow. Patient is encouraged to do the prone ventilation as instructed this will help improve oxygenation. 11/29 Patient tested positive for COVID on 11/22 and was started on dexamethasone 5/10, remdesivir 5/10 and plasma, also added vitamin D, vitamin-C, zinc, today patient will complete 5 day course of remdesivir, will extend another 5 days today total of 10 days, is on high-flow oxygen, remains clinically stable on current regimen, encouraged prone ventilation, patient is seen by pulmonology agrees with plan, will continue to monitor as patient's symptoms improve further recommendation to follow. 11/30 Patient tested positive for COVID on 11/22 and was started on dexamethasone 610, remdesivir 610 and was given plasma, also added vitamin D, vitamin-C, zinc,on 11/29 patient completed 5 day course of remdesivir, and extend another 5 days for total of 610 days, patient is on high-flow oxygen, remains clinically stable on current regimen, encouraged prone ventilation, patient is seen by pulmonology agrees with plan, will continue to monitor as patient's symptoms improve further recommendation to follow. 12/01 Patient tested positive for COVID on 11/22 and was started on dexamethasone 10, remdesivir 10 and was given plasma, also added vitamin D, vitamin-C, zinc,on 11/29 patient completed 5 day course of remdesivir, on 11/29 and extend another 5 days for total of 610 days, patient is on high-flow oxygen, remains clinically
[2020-12-05] MEDS: FENTANYL 2,500MCG/NS250ML(*CRX 2,500 MCG/250 ML BAG 10 MCG IV CONT (20:07)
[2020-12-06] VITALS (35 sets, daily range): BP systolic 70–154; BP diastolic 40–88; PULSE 45–100; RESP 27–30; TEMP 36.1–36.8; O2SAT 90–98
[2020-12-06] MEDS: METOCLOPRAMIDE HCL 10 MG/10 ML SOLN UDC PO ×4 (02:46→20:36)
[2020-12-06 05:02] LABS: Alveolar/Arterial O2 Gradient 355.4 mmHg; Base Excess ABG 13.4 mEq/l (+/-2.0); Carboxyhemoglobin 0.3 % THb (0-2.0); Fractional Inspired Oxygen 70 %; HCO3 ABG 39.5 mEq/l (22.0-26.0); Methemoglobin ABG 0.2 %THb (0-1.5); Oxygen Content ABG 13.4 %vol (16.0-22.0); Oxygen Saturation ABG 95.8 % (95.0-100.0); Oxyhemoglobin 94.5 % THb (90.0-100.0); PCO2 ABG 59.8 mmHg (35.0-45.0); PO2 ABG 79.4 mmHg (80.0-100.0); PO2 FiO2 Ratio Arterial Blood 1.13 %; pH ABG 7.438 (7.350-7.450)
[2020-12-06 05:03] LABS: Arterial Blood Gas PEEP 14 cmH2O; Arterial Blood Gas Tidal Volume 330 ml; Arterial Blood Gas Vent Mode CMV; Arterial Blood Gas Ventilator rate 30 /MIN; Device VENTILATOR; Modified Allen's Test Unable to perform; Site Drawn RIGHT RADIAL
[2020-12-06] MEDS: LEVOTHYROXINE SODIUM 75 MCG TABLET PO (05:30)
[2020-12-06] MEDS: CENTRAL LINE FLUSH 10 ML IV PUSH ×4 (05:30→20:36)
[2020-12-06] MEDS: PROPOFOL IV EMULSION 100 ML 9.67 MG IV CONT (05:47)
[2020-12-06 05:48] LABS: Alanine Aminotransferase 48 U/L (4-35); Albumin Level 3.6 g/dL (3.5-5.1); Alkaline Phosphatase 72 U/L (38-126); Aspartate Amino Transferase 94 U/L (14-36); Bilirubin,Total 0.7 mg/dL (0.2-1.3); Blood Urea Nitrogen 15 mg/dL (7-17); Calcium 8.6 mg/dL (8.4-10.2); Carbon Dioxide > 40 mmol/L (22-30); Chloride 99 mmol/L (98-107); Estimated CRCL calculation 71 ml/min; Estimated Glomerular Filt Rate > 60; Glucose 130 mg/dL (65-105); Magnesium 2.3 mg/dL (1.6-2.3); Phosphorus 1.8 mg/dL (2.5-4.5); Potassium 2.9 mmol/L (3.4-5.0); Sodium 145 mmol/L (137-145)
[2020-12-06] MEDS: ENOXAPARIN 40 MG/0.4 ML SYRINGE SUB-Q ×2 (08:40→20:36)
[2020-12-06] MEDS: ASCORBIC ACID 500 MG TABLET PO (08:40)
[2020-12-06] MEDS: ATORVASTATIN 10 MG TABLET PO (08:40)
[2020-12-06] MEDS: CHOLECALCIFEROL 1,000 UNITS TABLET 1000 UNITS PO (08:40)
[2020-12-06] MEDS: ZINC SULFATE 220 MG CAPSULE PO (08:41)
[2020-12-06] MEDS: PANTOPRAZOLE SODIUM IV 40 MG VIAL IV PUSH ×2 (08:41→20:36)
[2020-12-06] MEDS: EPOPROSTENOL SODIUM 0.5 MG VIAL 1 MG INHALATION (08:45)
--- NOTE | 2020-12-06 10:35 | WPDINTPN ---
Progress Note: A&P Assessment and Plan (1) Acute on chronic respiratory failure with hypoxemia: Code(s): J96.21 - Acute and chronic respiratory failure with hypoxia Status: Acute Assessment and Plan: Acute on chronic hypoxic respiratory failure likely related to IPF flare and COVID-19 pneumonia -failed BiPAP to and intubated on 12/02/2020. Intubation was uneventful -patient had elevated peak pressures on CMV mode of ventilation, switched her to pressure control ventilation, - 12/03 Patient was tried on prone position but she did not tolerate it. Heart rate remained high in 130s despite increasing sedation and adding propofol. Her tidal volumes also dropped on the ventilator to 200s despite high pressures. Patient was placed back in supine position after a hour. - 12/05 patient was placed in prone position overnight due to worsening hypoxia after giving a dose of paralytic. Continue daily -Flolan inhaled was started but has not showed any improvement whatsoever. Will discontinue today -continue assist control ventilation with tidal volume 330, rate 230, FiO2 75%, PEEP increased to 14 -used neuromuscular daniel as needed -chest x-ray and ABG reviewed -on fentanyl and Versed for sedation (2) Sepsis: Qualifiers: Acute respiratory failure type: with hypoxia Sepsis acute organ dysfunction status: with acute organ dysfunction Sepsis type: sepsis due to unspecified organism Severe sepsis acute organ dysfunction type: acute respiratory failure Severe sepsis shock status: without septic shock Qualified Code(s): A41.9 - Sepsis, unspecified organism; R65.20 - Severe sepsis without septic shock; J96.01 - Acute respiratory failure with hypoxia Code(s): A41.9 - Sepsis, unspecified organism Status: Acute Assessment and Plan: Increasing leukocytosis which could be related to steroids, infection/pneumonia -patient has been started on meropenem and vancomycin per pulmonology -blood cultures have been negative and patient is afebrile -chest x-ray with no significant change -continue bronchodilators (3) Pneumonia due to COVID-19 virus: Code(s): U07.1 - COVID-19; J12.82 - Pneumonia due to coronavirus disease 2019 Status: Acute Assessment and Plan: SARS-CoV-2 PCR positive on 11/22/2020 -continue dexamethasone for total of 10 days (initiated on 11/25/2020) -patient getting total of 10 days of Remdesivir (initiated on 11/24/2020) -continue droplet, atrial, contact isolation/precautions -monitor inflammatory markers (4) DVT prophylaxis: Code(s): Z29.9 - Encounter for prophylactic measures, unspecified Status: Acute Assessment and Plan: Lovenox 40 mg subcu q.12 (5) Dietary counseling and surveillance: Code(s): Z71.3 - Dietary counseling and surveillance Status: Acute Assessment and Plan: Stress ulcer prophylaxis: Protonix IV Tube feeds were held last night again due to high residuals. Will resume at lower rate after 6 hours Continue Reglan Added p.r.n. MiraLax and Dulcolax suppository (6) Shock: Code(s): R57.9 - Shock, unspecified Status: Acute Assessment and Plan: Patient currently on Levophed could be secondary to sepsis sedation and hypovolemia Discontinue 25% albumin Reviewed echo Conservative IV fluid strategy Continue Levophed Additional Plan Code status: DNR 12/05 I spoke to patient's POA Leo by phone and updated him with patient's status. I explained to him patient's increased oxygen requirement, the fact that she did not tolerate prone position day before yesterday and planned for today of starting Flolan and may re-attempt prone position. I also discussed goals of care and he told me that patient would not want to be on mechanical ventilation for prolonged period of time if she is not getting better. He also felt that patient would not want to be resuscitated if she has a cardiac arrest secondary to her respiratory f
--- NOTE | 2020-12-06 10:51 | PCDIET ---
ICU Rounding Note: Tube feedings currently on hold for 250mL residual. Residuals up to 600mL documented over the weekend. MD adding Miralax and Dulcolax with plan to resume tube feedings later today at 20mL/hr (Vital 1.2). Last recorded weight is 55kg which is down from last review. Bowel Motility: No documented BM. Labs Reviewed: Cr (0.5), K (2.9), PO4 (1.8) Meds Noted: K-Phos, KCl, Albuterol, Fentanyl, Synthroid, Levophed, Protonix, Vitamin C, Atrovent, Meropenem, Lipitor, Reglan, Versed, Vancomycin, Vitamin D, Zinc Sulfate, Miralax, Dulcolax Additional Notes: Right cheek with small area of breakdown, per RN. Following daily in ICU rounds. Assessing/reassessing every Sunday/Sunday.
[2020-12-06] MEDS: POTASSIUM CHLORIDE 20 MEQ PACKET (FOR LIQUID) 40 MEQ FEED TUBE (11:05)
[2020-12-06] MEDS: NOREPINEPHRINE 8 MG/D5W 250 ML 8 MG/250 ML BAG 8.44 MG IV CONT (13:00)
--- NOTE | 2020-12-06 15:05 | PC.NURSE ---
Turned patient prone at 1450. Patient to be turned back supine 18 hours form initiation of prone position. Restarted propofol gtt for prone postioning as well.
[2020-12-06] MEDS: PROPOFOL IV EMULSION 100 ML 4.83 MG IV CONT (15:33)
[2020-12-06] MEDS: IPRATROPIUM BR 0.02% INH SOLN 0.5 MG/2.5 ML VIAL INHALATION (20:14)
[2020-12-06] MEDS: ALBUTEROL SULFATE NEB 2.5 MG/0.5 ML INH INHALATION (20:14)
[2020-12-06] MEDS: FENTANYL 2,500MCG/NS250ML(*CRX 2,500 MCG/250 ML BAG 10 MCG IV CONT (20:34)
[2020-12-07] VITALS (22 sets, daily range): BP systolic 59–111; BP diastolic 40–65; PULSE 103–136; RESP 17–33; TEMP 36.6–37.7; O2SAT 90–94
[2020-12-07] MEDS: IPRATROPIUM BR 0.02% INH SOLN 0.5 MG/2.5 ML VIAL INHALATION ×2 (02:06→08:46)
[2020-12-07] MEDS: ALBUTEROL SULFATE NEB 2.5 MG/0.5 ML INH INHALATION ×2 (02:06→08:46)
[2020-12-07] MEDS: METOCLOPRAMIDE HCL 10 MG/10 ML SOLN UDC PO ×2 (02:26→07:28)
[2020-12-07 04:38] LABS: Alveolar/Arterial O2 Gradient 536.8 mmHg; Base Excess ABG 10.6 mEq/l (+/-2.0); Carboxyhemoglobin 0.3 % THb (0-2.0); Fractional Inspired Oxygen 95 %; HCO3 ABG 38.8 mEq/l (22.0-26.0); Methemoglobin ABG 0.3 %THb (0-1.5); Oxygen Content ABG 14.7 %vol (16.0-22.0); Oxygen Saturation ABG 91.5 % (95.0-100.0); Oxyhemoglobin 91.3 % THb (90.0-100.0); PO2 FiO2 Ratio Arterial Blood 0.71 %; Reduced Hemoglobin 8.1 %THb (0-5.0); Total Hemoglobin 11.4 g/dL (12.0-18.0); pH ABG 7.345 (7.350-7.450)
[2020-12-07 04:39] LABS: Device VENTILATOR; Modified Allen's Test Unable to perform; PCO2 ABG 72.7 mmHg (35.0-45.0); Site Drawn LEFT RADIAL
[2020-12-07 04:40] LABS: Arterial Blood Gas PEEP 14 cmH2O; Arterial Blood Gas Tidal Volume 330 ml; Arterial Blood Gas Vent Mode CMV; Arterial Blood Gas Ventilator rate 30 /MIN
[2020-12-07] MEDS: PROPOFOL IV EMULSION 100 ML 6.44 MG IV CONT (05:23)
[2020-12-07] MEDS: CENTRAL LINE FLUSH 10 ML IV PUSH (05:24)
[2020-12-07] MEDS: LEVOTHYROXINE SODIUM 75 MCG TABLET PO (05:24)
[2020-12-07 05:25] LABS: Hematocrit 32.9 % (37.0-47.0); Hemoglobin 10.2 g/dL (12.0-15.0); Mean Corpuscular Hemoglobin 30.6 pg (26-34); Mean Corpuscular Volume 98.8 fl (80-100); Mean Platelet Volume 10.9 fl (7.4-10.4); Platelet Count Result 151 k/mm3 (150-375); Red Blood Count 3.33 M/mm3 (4.2-5.4); Red Cell Distribution Width 15.1 % (11.5-14.5); White Blood Count 20.1 K/mm3 (4.5-10.0)
[2020-12-07 05:37] LABS: D Dimer 1.85 ug/mL (<0.48)
[2020-12-07 05:43] LABS: Alanine Aminotransferase 55 U/L (4-35); Albumin Level 3.3 g/dL (3.5-5.1); Alkaline Phosphatase 79 U/L (38-126); Aspartate Amino Transferase 69 U/L (14-36); Bilirubin,Total 0.7 mg/dL (0.2-1.3); Blood Urea Nitrogen 19 mg/dL (7-17); CRP 8.1 mg/dL (<1.0); Calcium 8.9 mg/dL (8.4-10.2); Carbon Dioxide > 40 mmol/L (22-30); Chloride 96 mmol/L (98-107); Estimated CRCL calculation 40 ml/min; Estimated Glomerular Filt Rate > 60; Glucose 72 mg/dL (65-105); Lactate Dehydrogenase 614 U/L (313-618); Magnesium 1.8 mg/dL (1.6-2.3); Sodium 140 mmol/L (137-145)
[2020-12-07] MEDS: ATORVASTATIN 10 MG TABLET PO (07:27)
[2020-12-07] MEDS: ASCORBIC ACID 500 MG TABLET PO (07:27)
[2020-12-07] MEDS: CHOLECALCIFEROL 1,000 UNITS TABLET 1000 UNITS PO (07:27)
[2020-12-07] MEDS: ENOXAPARIN 40 MG/0.4 ML SYRINGE SUB-Q (07:27)
[2020-12-07] MEDS: ZINC SULFATE 220 MG CAPSULE PO (07:28)
[2020-12-07] MEDS: PANTOPRAZOLE SODIUM IV 40 MG VIAL IV PUSH (07:28)
[2020-12-07] MEDS: SODIUM CHLORIDE 0.9% IV 1,000 ML 999 ML IV CONT (08:20)
[2020-12-07] MEDS: SODIUM CHLORIDE 0.9% IV 1,000 ML 999 ML (08:20)
[2020-12-07] MEDS: ROCURONIUM BROMIDE 50 MG/5 ML VIAL IV PUSH (08:20)
[2020-12-07] MEDS: SODIUM BICARBONATE 8.4% 50 MEQ/50 ML SYRINGE (08:20)
[2020-12-07] MEDS: ROCURONIUM BROMIDE 50 MG/5 ML VIAL (08:26)
[2020-12-07] MEDS: SODIUM BICARBONATE 8.4% 50 MEQ/50 ML SYRINGE IV PUSH (08:30)
--- NOTE | 2020-12-07 09:32 | WPDINTPN ---
Progress Note: A&P Assessment and Plan (1) Acute on chronic respiratory failure with hypoxemia: Code(s): J96.21 - Acute and chronic respiratory failure with hypoxia Status: Acute Assessment and Plan: Acute on chronic hypoxic respiratory failure likely related to IPF flare and COVID-19 pneumonia -failed BiPAP to and intubated on 12/02/2020. Intubation was uneventful -patient had elevated peak pressures on CMV mode of ventilation, switched her to pressure control ventilation, - 12/03 Patient was tried on prone position but she did not tolerate it. Heart rate remained high in 130s despite increasing sedation and adding propofol. Her tidal volumes also dropped on the ventilator to 200s despite high pressures. Patient was placed back in supine position after a hour. - 12/05 patient was placed in prone position overnight due to worsening hypoxia after giving a dose of paralytic. Continue daily -12/06 Flolan was discontinued as it did not had any improvement in the saturation -12/07 patient continues to worsen overnight with increased FiO2 requirement to 95%. Morning when I saw the patient she was a synchronous with the ventilator and sats were in 80s. Rock peroneum was given to paralyze the patient which did improve in sats to above 90s. Patient also has developed pneumomediastinum although no pneumothorax on the chest x-ray. I am reluctant to further increasing her PEEP. Patient has interstitial lung diseaseF and is at a risk of pneumothorax - Continue assist control ventilation with tidal volume 330, rate 30, FiO2 95%, PEEP increased to 14 -permissive hypercapnia, bicarb for acidosis -continue neuromuscular daniel as needed -chest x-ray shows pneumomediastinum and subcutaneous air, persistent bilateral infiltrates - ABG reviewed -on fentanyl and Versed for sedation (2) Shock: Code(s): R57.9 - Shock, unspecified Status: Acute Assessment and Plan: Patient currently on Levophed could be secondary to sepsis sedation and hypovolemia Reviewed echo Patient lot more hypotensive this morning and Levophed does had to be increased Will give 1 L saline bolus 1 amp of bicarb given for acidosis (3) Sepsis: Qualifiers: Acute respiratory failure type: with hypoxia Sepsis acute organ dysfunction status: with acute organ dysfunction Sepsis type: sepsis due to unspecified organism Severe sepsis acute organ dysfunction type: acute respiratory failure Severe sepsis shock status: without septic shock Qualified Code(s): A41.9 - Sepsis, unspecified organism; R65.20 - Severe sepsis without septic shock; J96.01 - Acute respiratory failure with hypoxia Code(s): A41.9 - Sepsis, unspecified organism Status: Acute Assessment and Plan: Increasing leukocytosis which could be related to steroids, infection/pneumonia -patient has been started on meropenem and vancomycin per pulmonology -blood cultures have been negative and patient is afebrile -chest x-ray with no significant change -continue bronchodilators (4) Pneumonia due to COVID-19 virus: Code(s): U07.1 - COVID-19; J12.82 - Pneumonia due to coronavirus disease 2019 Status: Acute Assessment and Plan: SARS-CoV-2 PCR positive on 11/22/2020 -continue dexamethasone for total of 10 days (initiated on 11/25/2020) -patient getting total of 10 days of Remdesivir (initiated on 11/24/2020) -continue droplet, atrial, contact isolation/precautions -monitor inflammatory markers which are worsening (5) Dietary counseling and surveillance: Code(s): Z71.3 - Dietary counseling and surveillance Status: Acute Assessment and Plan: Stress ulcer prophylaxis: Protonix IV Continue tube feeds at a low rate and advance as tolerated Continue Reglan Continue p.r.n. MiraLax and Dulcolax suppository (6) DVT prophylaxis: Code(s): Z29.9 - Encounter for prophylactic measures, unspecified Status: Acute Assessment and Plan: L
[2020-12-07] MEDS: ALBUMIN HUMAN 25% 25 GM/100 ML 100 ML IVPB (10:51)
--- NOTE | 2020-12-07 10:52 | PCDIET ---
Nutrition Follow-Up Complete: Nutrition Diagnosis: Involuntary weight loss related to decreased appetite as evidenced by patient reporting 2-13 pound weight loss with decreased appetite. Nutrition Goal: Patient to meet estimated nutritional needs. Goal in progress. Patient tolerating Vital 1.2 at 20mL/hr with 30mL water flush every 4 hours. Residuals 60mL and below. MD order to increase Vital 1.2 to 40mL/hr today. Patient's family discussing possible withdrawal of care. Last recorded weight is 40.6 kg. Recommend reweighing to ensure accuracy, as this is significantly down from prior weights. Bowel Motility: No BM. Discussed with team during rounds. PRN orders for Miralax and Dulcolax. Labs Reviewed: Hgb (10.2), Hct (32.9), BUN (19), Alb (3.3) Meds Noted: Albuterol, Vitamin C, Synthroid, Versed, Lipitor, Fentanyl, Atrovent, Meropenem, Reglan, Levophed, Protonix, Vancomycin, Vitamin D, Zinc Sulfate, Rocuronium, Sodium Bicarbonate, Propofol (rate of 4.83mL/hr provides 127kcal per day) Additional Notes: Right cheek reddened. No documented pressure ulcers. Will continue to monitor with same goal if aggressive nutritional therapy is continued. Nutrition Monitoring and Evaluation: Follow up every Sunday/Sunday.
[2020-12-07] MEDS: NOREPINEPHRINE 8 MG/D5W 250 ML 8 MG/250 ML BAG 28.13 MG IV CONT (10:59)
--- NOTE | 2020-12-07 11:36 | PM.EVENT ---
Event Note Event Note Event Note: Family Meeting I met with patient's POA and niece in presence of creative services manager Jim today in conference room. I have spoken to patient's POA by phone multiple times in last few days. I updated them with patient's current condition, overnight events. Patient was already DNR They has decided, in accordance with pt's wishes, to discontinue all medical therapy at this time and institute comfort measures only. Patient will be placed in supine position and extubated. The paralytic dose given this morning has worn off by now and patient is over breathing the ventilator. I will use opioids, anxiolytics and other agents on as needed basis to promote comfort and discontinue all medical therapy, lab testing and invasive monitoring.
[2020-12-07] MEDS: LORazepam INJ (*CRX) 2 MG/ML VIAL IV PUSH (11:53)
[2020-12-07] MEDS: MORPHINE SULFATE (*CRX) 4 MG/ML INJ 8 MG (11:53)
--- NOTE | 2020-12-07 12:01 | PM.DDS ---
Discharge Sum: Prov Provider Primary care physician: Neil Kulkarni MD Admitting provider: Brianna Prakash MD Consults: 11/24/20 09:28 Consult to Physician Routine Comment: MESSAGE LEFT WITH DR. HENSLEY Consulting Provider: Margaret Hensley net software architect/MD group to consult: Sewer And Inspector Reason for consultation: COVID-19 highflow oxygen Has provider been notified: Yes Discharge Sum: Summary Date and Time Date of admission: 11/23/20 09:33 Date of : 12/07/20 Time of : 11:58 Summary Details: patient is 75-year-old female with a history of chronic respiratory failure on home oxygen 4 L with history of interstitial lung disease patient presented emergency department with a complaint cough shortness of breath and hypoxic and setting in 60s on 4L, she denies any fever or chills, chest x-ray showed Worsened diffuse lung disease, consistent with chronic interstitial lung disease with superimposed pneumonia versus pulmonary edema. Concern the patient has pneumonia patient started on Levaquin with exacerbation of COPD being treated with Solu-Medrol and updraft, patient is also tested for COVID-19 is pending currently patient under isolation will continue to monitor, states feeling little better compared to when she arrived patient currently denies a cough shortness of breath fever or chills. 11/24 patient COVID test is positive started the patient on dexamethasone 110, remdesivir 1/5, vitamin D, vitamin-C and zinc, will get the patient plasma, requiring high-flow oxygen, patient states feeling better denies any cough shortness of breath fever or chill, will continue to monitor patient goal is to wean the patient off high-flow oxygen and further recommendation to follow 11/25 patient COVID test is positive started the patient on dexamethasone 2/10, remdesivir 2/5, vitamin D, vitamin-C and zinc. patient will receive plasma today, today patient states feeling much better not a short breath, denies any fever or chills, discussed with the patient is still requiring high oxygen, plan is to continue monitoring the patient as her symptoms improve and requiring less than 6 L of oxygen and no fever for 2 days med with discharge planning, patient is seen by auto battery builder and further recommendation to follow. 11/28 Patient tested positive for COVID on 11/22 and was started on dexamethasone 5/10, remdesivir 4/10 and plasma, also added vitamin D, vitamin-C, zinc, patient will complete her 5 day course of remdesivir on 11/29 will continue for another 5 days, remained clinically stable has no fever and and on high-flow oxygen, patient seen by pulmonology and further recommendation to follow. Patient is encouraged to do the prone ventilation as instructed this will help improve oxygenation. 11/29 Patient tested positive for COVID on 11/22 and was started on dexamethasone 5/10, remdesivir 5/10 and plasma, also added vitamin D, vitamin-C, zinc, today patient will complete 5 day course of remdesivir, will extend another 5 days today total of 10 days, is on high-flow oxygen, remains clinically stable on current regimen, encouraged prone ventilation, patient is seen by pulmonology agrees with plan, will continue to monitor as patient's symptoms improve further recommendation to follow. 11/30 Patient tested positive for COVID on 11/22 and was started on dexamethasone 6/10, remdesivir 6/10 and was given plasma, also added vitamin D, vitamin-C, zinc,on 11/29 patient completed 5 day course of remdesivir, and extend another 5 days for total of 610 days, patient is on high-flow oxygen, remains clinically stable on current regimen, encouraged prone ventilation, patient is seen by pulmonology agrees with plan, will continue to monitor as patient's symptoms improve further recommendation to follow. 12/01 Patient tested positive for COVID on 11/22 and was started on dexamethasone 7/10, remdesivir 7/10 and was given plasma, also added vitamin D, vitamin-C, zinc,on
--- NOTE | 2020-12-07 12:24 | PC.NURSE ---
1100-FAMILY TO ICU TO TALK TO DOCTOR AND JEREMY. FAMILY DECIDED TO PLACE PT ON COMFORT CARE. 1148- RESP CARE, MD, AND RN AT BEDSIDE. PT EXTUBATED AND ALL MEDICATIONS STOPPED, EXCEPT FOR FENTANYL. PT GIVEN IVP MORPHINE AND IVP LORAZEPAM ORDERED. FAMILY TO BEDSIDE TO BE WITH PT. PT ON MONITOR 1158- TIME OF
== END 2020-12-07 11:58 | disposition expired | DRG 871 ==
LOC: ANHED 16:30 → ANH3MEDSUR 17:11 → ANHIMU 11-23 05:03 → ANHICU 12-02 09:40
PROVIDERS: Family Medicine; Internal Medicine; Admitting Provider Family Medicine; Emergency Provider Emergency Medicine; PCP Family Medicine Adolescent Medicine; Visit Provider Family Medicine
DX: A41.89 Other specified sepsis (principal); U07.1 COVID-19; J12.82 Pneumonia due to coronavirus disease 2019; J96.21 Acute and chronic respiratory failure with hypoxia; R65.21 Severe sepsis with septic shock; J44.0 Chronic obstructive pulmonary disease with (acute) lower respiratory infection; J44.1 Chronic obstructive pulmonary disease with (acute) exacerbation; R57.1 Hypovolemic shock; I25.10 Atherosclerotic heart disease of native coronary artery without angina pectoris; K21.9 Gastro-esophageal reflux disease without esophagitis; E78.5 Hyperlipidemia, unspecified; E03.9 Hypothyroidism, unspecified; I10 Essential (primary) hypertension; Z66 Do not resuscitate; Z95.5 Presence of coronary angioplasty implant and graft; Z87.891 Personal history of nicotine dependence; Z99.81 Dependence on supplemental oxygen
CPT/HCPCS: 31500; 36415; 36430; 36600; 71045; 80048; 80053; 80202; 82375; 82728; 82805; 83050; 83605; 83615; 83735; 83880; 84100; 85025; 85027; 85380; 85610; 85730; 86140; 86738; 86900; 86901; 87040; 87449; 87804; 87899; 93005; 93306; 94002; 94003; 94640; 94660; 96374; 96375; 96376; 99291; A9270; C1751; C9113; C9803; G0378; J0330; J1100; J1650; J1956; J2060; J2185; J2250; J2270; J2704; J2930; J3010; J3370; J7030; J7040; J7050; J7060; P9047; P9059; U0003; U0005